=== PATIENT | female | born 1950 | race Caucasian/White ===

== ENCOUNTER 2020-06-09 12:09 | Outpatient (REF) | payer OTHER, SELFPAY ==
[2020-06-09 13:03] LABS: Urine Cytology See Pathology rpt
== END 2020-06-09 12:10 | disposition home or self-care (01) ==
LOC: HO.LAB 12:09
PROVIDERS: PCP Internal Medicine; Visit Provider Internal Medicine
DX: R31.9 Hematuria, unspecified (principal)
CPT/HCPCS: 88112

== ENCOUNTER 2020-08-20 09:48 | Outpatient (REF) | payer OTHER, SELFPAY ==
[2020-08-20 11:29] LABS: MANUAL DIFF FLAG NO
[2020-08-20 11:43] LABS: Basophils Absolute Auto 0.1 X10*3/uL (0.0-0.2); Basophils Percent Auto 1.3 % (0-2); Eosinophils Absolute Auto 0.2 X10*3/uL (0.0-0.4); Eosinophils Percent Auto 4.1 % (0-4); Hematocrit 38.8 % (37-47); Hemoglobin 12.9 g/dl (12.0-16.0); Imm Gran Abs Auto 0.01 X10*3/uL (0.00-0.03); Imm Gran Pct Auto 0.2 % (0.0-0.4); Lymphocytes Absolute Auto 2.4 X10*3/uL (1.2-4.9); Lymphocytes Percent Auto 44.8 % (20-40); Mean Corpuscular HGB Conc 33.2 g/dl (31.0-35.0); Mean Corpuscular Volume 90.2 fL (80-98); Mean Platelet Volume 10.3 fL (9.4-12.3); Monocytes Absolute Auto 0.6 X10*3/uL (0.1-1.2); Monocytes Percent Auto 11.4 % (2-11); Neutrophils Absolute Auto 2.1 X10*3/uL (2.0-8.3); Neutrophils Percent Auto 38.2 % (45-73); Platelet Count 266 X10*3/uL (160-400); Red Cell Distribution Width 12.5 % (11.0-16.0); White Blood Count 5.4 X10*3/uL (4.8-10.8)
[2020-08-20 12:15] LABS: Alanine Aminotransferase 39 U/L (0-31); Albumin Level 4.5 g/dL (3.5-5.0); Alkaline Phosphatase 77 U/L (39-117); Anion Gap 13 (12-20); Aspartate Amino Transferase 37 U/L (5-31); Bilirubin Total 1.2 mg/dL (0.0-1.0); Blood Urea Nitrogen 18 mg/dL (9-16); Calcium 9.8 mg/dL (8.4-10.2); Carbon Dioxide 27 mmol/L (22-29); Chloride 105 mmol/L (96-108); Cholesterol 189 mg/dL; Estimated Glomerular Filt Rate > 60; Glucose Random 97 mg/dL (60-115); HDL Cholesterol 76 mg/dL; LDL Cholesterol Calculated 94 mg/dl; Potassium 4.2 mmol/L (3.3-5.1); Sodium 141 mmol/L (135-145); Triglycerides 95 mg/dL
[2020-08-20 12:19] LABS: Free T4 (Free Thyroxine) 1.37 ng/dL (0.71-1.85); Thyroid Stimulating Hormone 0.98 uIU/mL (0.32-4.0); Vitamin D 25-OH Total 18.3 ng/mL (>30)
[2020-08-20 12:28] LABS: Folate 15.6 ng/mL (> or = 4.0); Vitamin B12 360 pg/mL (200-900)
== END 2020-08-20 09:49 | disposition home or self-care (01) ==
LOC: HO.HMGCLDS 09:48
PROVIDERS: PCP Internal Medicine; Visit Provider Internal Medicine
DX: E78.00 Pure hypercholesterolemia, unspecified (principal); I10 Essential (primary) hypertension; E03.9 Hypothyroidism, unspecified
CPT/HCPCS: 36415; 80053; 80061; 82306; 82607; 82746; 84439; 84443; 85025

== ENCOUNTER 2020-08-24 13:37 | Outpatient (REF) | payer OTHER, SELFPAY ==
--- NOTE | ~2020-08-24 | XR_ITS ---
EXAMINATION: XR LUMBOSACRAL SPINE CLINICAL INFORMATION: Radiculopathy COMPARISON: Previous x-ray most recent June 2012 TECHNIQUE: Three views of the lumbosacral spine. FINDINGS: Bone alignment is normal. No fracture or dislocation is seen. There is degenerative disc disease from L1-L2 to L4-L5. There is lower lumbar spine facet arthritis. XR/XR lumbar spine 2-3V IMPRESSION: Degenerative changes.
== END 2020-08-24 13:38 | disposition home or self-care (01) ==
LOC: HO.XRAY 13:37
PROVIDERS: PCP Internal Medicine; Visit Provider Internal Medicine
DX: M54.10 Radiculopathy, site unspecified (principal)
CPT/HCPCS: 72100

== ENCOUNTER 2020-12-11 09:53 | Outpatient (REF) | payer OTHER, SELFPAY ==
[2020-12-11 16:26] LABS: Urine Cytology See Pathology rpt
== END 2020-12-11 09:54 | disposition home or self-care (01) ==
LOC: HO.LAB 09:53
PROVIDERS: PCP Internal Medicine
DX: R31.9 Hematuria, unspecified (principal)
CPT/HCPCS: 88112

== ENCOUNTER 2021-03-18 09:55 | Outpatient (REF) | payer OTHER, SELFPAY ==
--- NOTE | ~2021-03-18 | US_ITS ---
EXAMINATION: US RETROPERITONEAL LIMITED (RENAL ONLY) CLINICAL INFORMATION: Hematuria, unspecified. COMPARISON: Ultrasound abdomen complete 07/28/2016. KUB 03/21/2016. TECHNIQUE: Real-time imaging of the kidneys. FINDINGS: RIGHT KIDNEY: 11.7 x 3.7 x 5.7 cm (SAG x AP x TRV). The kidney is normal in size, contour, and echogenicity. Renal cortical thickness is normal. No calculi or focal parenchymal lesions. No hydronephrosis. LEFT KIDNEY: 11.4 x 3.9 x 4.9 cm (SAG x AP x TRV). The kidney is normal in size, contour, and echogenicity. Renal cortical thickness is normal. There is question of left hydronephrosis versus peripelvic cysts. This is similar to July 2016 exam. No renal stone or mass. US/US renal BI IMPRESSION: No stone seen. Question left hydronephrosis versus peripelvic cysts.
== END 2021-03-18 09:56 | disposition home or self-care (01) ==
LOC: HO.HMGCX 09:55
PROVIDERS: PCP Internal Medicine; Visit Provider Internal Medicine
DX: R31.9 Hematuria, unspecified (principal)
CPT/HCPCS: 76775

== ENCOUNTER → 2021-06-16 13:04 | Outpatient (BNVA) | payer OTHER, SELFPAY | PROVIDERS: PCP Internal Medicine; Visit Provider Urology | DX: N13.30 Unspecified hydronephrosis (principal); N20.0 Calculus of kidney; Z87.891 Personal history of nicotine dependence | CPT/HCPCS: 99212 ==

== ENCOUNTER 2021-09-02 10:53 | Outpatient (REF) | payer OTHER, SELFPAY ==
[2021-09-02 13:38] LABS: MANUAL DIFF FLAG NO
[2021-09-02 13:46] LABS: Basophils Absolute Auto 0.1 X10*3/uL (0.0-0.2); Basophils Percent Auto 1.3 % (0-2); Eosinophils Absolute Auto 0.2 X10*3/uL (0.0-0.4); Eosinophils Percent Auto 3.6 % (0-4); Hematocrit 35.9 % (37.0-47.0); Hemoglobin 11.8 g/dl (12.0-16.0); Imm Gran Abs Auto 0.01 X10*3/uL (0.00-0.03); Imm Gran Pct Auto 0.2 % (0.0-0.4); Lymphocytes Absolute Auto 2.2 X10*3/uL (1.2-4.9); Mean Corpuscular HGB Conc 32.9 g/dl (31.0-35.0); Mean Corpuscular Hemoglobin 29.4 pg (27.0-33.0); Mean Corpuscular Volume 89.5 fL (80.0-98.0); Mean Platelet Volume 10.7 fL (9.4-12.3); Monocytes Absolute Auto 0.6 X10*3/uL (0.1-1.2); Monocytes Percent Auto 10.4 % (2-11); Neutrophils Absolute Auto 2.6 x10*3/uL (2.0-8.3); Neutrophils Percent Auto 45.5 % (45-73); Platelet Count 247 X10*3/uL (160-400); Red Blood Count 4.01 X10*6/uL (4.20-5.50); Red Cell Distribution Width 12.5 % (11.0-16.0); White Blood Count 5.6 X10*3/uL (4.8-10.8)
[2021-09-02 14:00] LABS: Alanine Aminotransferase 23 U/L (0-31); Albumin Level 4.3 g/dL (3.5-5.0); Alkaline Phosphatase 70 U/L (39-117); Anion Gap 11 (12-20); Aspartate Amino Transferase 21 U/L (5-31); Bilirubin Total 0.8 mg/dL (0.0-1.0); Blood Urea Nitrogen 25 mg/dL (9-16); Calcium 9.8 mg/dL (8.4-10.2); Carbon Dioxide 27 mmol/L (22-29); Chloride 105 mmol/L (96-108); Cholesterol 166 mg/dL; Estimated Glomerular Filt Rate 58; Glucose Random 98 mg/dL (60-115); HDL Cholesterol 55 mg/dL; LDL Cholesterol Calculated 88 mg/dl; Potassium 3.6 mmol/L (3.3-5.1); Sodium 139 mmol/L (135-145); Total Protein 6.5 g/dL (6.5-8.0); Triglycerides 115 mg/dL
[2021-09-02 14:13] LABS: Free T4 (Free Thyroxine) 1.36 ng/dL (0.71-1.85); Thyroid Stimulating Hormone 0.53 uIU/mL (0.32-4.0); Vitamin D 25-OH Total 30.1 ng/mL (>30)
[2021-09-02 14:28] LABS: Folate 12.5 ng/mL (> or = 4.0); Vitamin B12 327 pg/mL (200-900)
== END 2021-09-02 10:54 | disposition home or self-care (01) ==
LOC: HO.HMGCLDS 10:53
PROVIDERS: PCP Internal Medicine; Visit Provider Internal Medicine
DX: E78.00 Pure hypercholesterolemia, unspecified (principal)
CPT/HCPCS: 36415; 80053; 80061; 82306; 82607; 82746; 84439; 84443; 85025

== ENCOUNTER 2021-11-09 10:34 | Outpatient (REF) | payer OTHER, SELFPAY ==
--- NOTE | ~2021-11-09 | US_ITS ---
EXAMINATION: US RETROPERITONEAL LIMITED (RENAL ONLY) CLINICAL INFORMATION: Calculus of kidney. COMPARISON: Bilateral renal ultrasound dated 03/18/2021. Ultrasound abdomen complete dated 07/28/2016. KUB dated 03/21/2016. TECHNIQUE: Real-time imaging of the kidneys. FINDINGS: RIGHT KIDNEY: 10.8 x 3.8 x 5.6 cm (SAG x AP x TRV). The kidney is normal in size and echogenicity. Renal cortical thickness is normal. No calculi or focal parenchymal lesions. No hydronephrosis. LEFT KIDNEY: 11.2 x 4.7 x 4.3 cm (SAG x AP x TRV). The kidney is normal in size, contour, and echogenicity. Renal cortical thickness is normal. There is mild caliectasis versus peripelvic cysts similar to previous exams. No renal calculi or hydronephrosis. US/US renal BI IMPRESSION: No stone seen. Mild left caliectasis versus peripelvic cysts similar to previous exams.
[2021-11-09 11:26] LABS: MANUAL DIFF FLAG NO
[2021-11-09 11:39] LABS: Basophils Absolute Auto 0.1 X10*3/uL (0.0-0.2); Basophils Percent Auto 1.3 % (0-2); Eosinophils Absolute Auto 0.3 X10*3/uL (0.0-0.4); Eosinophils Percent Auto 4.7 % (0-4); Hematocrit 36.5 % (37.0-47.0); Hemoglobin 12.2 g/dl (12.0-16.0); Imm Gran Abs Auto 0.01 X10*3/uL (0.00-0.03); Imm Gran Pct Auto 0.2 % (0.0-0.4); Immature Retic Fraction 13.7 % (3.0-15.9); Lymphocytes Absolute Auto 2.2 X10*3/uL (1.2-4.9); Lymphocytes Percent Auto 38.8 % (20-40); Mean Corpuscular HGB Conc 33.4 g/dl (31.0-35.0); Mean Corpuscular Volume 89.7 fL (80.0-98.0); Mean Platelet Volume 9.7 fL (9.4-12.3); Monocytes Absolute Auto 0.6 X10*3/uL (0.1-1.2); Monocytes Percent Auto 10.6 % (2-11); Neutrophils Absolute Auto 2.5 x10*3/uL (2.0-8.3); Neutrophils Percent Auto 44.4 % (45-73); Platelet Count 250 X10*3/uL (160-400); Red Blood Count 4.07 X10*6/uL (4.20-5.50); Red Cell Distribution Width 12.5 % (11.0-16.0); Retic HGB Equivalent 36.1 pg (30.0-35.0); Reticulocyte Percent 1.9 % (0.5-1.8); Reticulocytes Absolute 0.078 X10*6/uL (0.026-0.095); White Blood Count 5.6 X10*3/uL (4.8-10.8)
[2021-11-09 12:10] LABS: Iron 75 mcg/dL (30-160); Percent Iron Saturation 24 % (15-50); Total Iron Binding Capacity 313 mcg/dL (228-428); Unsaturated Iron Binding 238 ug/dL
[2021-11-09 12:34] LABS: Ferritin 77 ng/mL (10-250)
== END 2021-11-09 10:35 | disposition home or self-care (01) ==
LOC: HO.US 10:34
PROVIDERS: Internal Medicine; Visit Provider Urology
DX: N20.0 Calculus of kidney (principal); N13.30 Unspecified hydronephrosis; D64.9 Anemia, unspecified
CPT/HCPCS: 36415; 76775; 82728; 83540; 85025; 85045

== ENCOUNTER 2022-01-11 13:51 | Outpatient (REF) | payer OTHER, SELFPAY ==
[2022-01-11 14:12] LABS: MANUAL DIFF FLAG NO
[2022-01-11 14:33] LABS: Basophils Percent Auto 0.6 % (0-2); Eosinophils Absolute Auto 0.2 X10*3/uL (0.0-0.4); Eosinophils Percent Auto 2.9 % (0-4); Hematocrit 36.5 % (37.0-47.0); Hemoglobin 12.3 g/dl (12.0-16.0); Imm Gran Abs Auto 0.01 X10*3/uL (0.00-0.03); Imm Gran Pct Auto 0.2 % (0.0-0.4); Lymphocytes Absolute Auto 2.5 X10*3/uL (1.2-4.9); Lymphocytes Percent Auto 38.9 % (20-40); Mean Corpuscular HGB Conc 33.7 g/dl (31.0-35.0); Mean Corpuscular Hemoglobin 29.9 pg (27.0-33.0); Mean Corpuscular Volume 88.6 fL (80.0-98.0); Monocytes Absolute Auto 0.7 X10*3/uL (0.1-1.2); Monocytes Percent Auto 10.8 % (2-11); Neutrophils Percent Auto 46.6 % (45-73); Platelet Count 269 X10*3/uL (160-400); Red Blood Count 4.12 X10*6/uL (4.20-5.50); Red Cell Distribution Width 12.6 % (11.0-16.0); White Blood Count 6.5 X10*3/uL (4.8-10.8)
[2022-01-11 15:24] LABS: Erythrocyte Sedimentation Rate 13 MM/HR (0-20)
[2022-01-13 14:56] LABS: Immunoglobulin A 80 mg/dL (70-320)
[2022-01-13 23:26] LABS: Transglutaminase Ab IgG <1.0 U/mL; Transglutaminase IgA <1.0 U/mL
[2022-01-17 14:22] LABS: Gliadin Deamidated IgA Ab <1.0 U/mL; Gliadin Deamidated IgG Ab <1.0 U/mL
[2022-01-19 15:56] LABS: Endomysial IgA Antibody Negative (Negative)
== END 2022-01-11 13:52 | disposition home or self-care (01) ==
LOC: HO.LAB 13:51
PROVIDERS: PCP Internal Medicine; Visit Provider Internal Medicine
DX: K58.0 Irritable bowel syndrome with diarrhea (principal); K62.5 Hemorrhage of anus and rectum
CPT/HCPCS: 36415; 82784; 85025; 85652; 86140; 86231; 86258; 86364

== ENCOUNTER 2022-01-13 15:02 | Outpatient (REF) | payer OTHER, SELFPAY ==
[2022-01-13 18:06] LABS: Leukocytes Stool Qualitative NEGATIVE (NEGATIVE)
[2022-01-13 18:09] LABS: CDiff Gene PCR NEGATIVE (Negative)
[2022-01-14 09:38] LABS: Adenovirus F 40/41 Not Detected (Not Detect.); Astrovirus Not Detected (Not Detect.); Campylobacter Not Detected (Not Detect.); Cryptosporidium Not Detected (Not Detect.); Cyclospora cayetanensis Not Detected (Not Detect.); E. coli EAEC Not Detected (Not Detect.); E. coli EPEC Not Detected (Not Detect.); E. coli ETEC Not Detected (Not Detect.); E. coli STEC Not Detected (Not Detect.); Entamoeba histolytica Not Detected (Not Detect.); Giardia lamblia Not Detected (Not Detect.); Norovirus GI/GII Not Detected (Not Detect.); Plesiomonas shigelloides Not Detected (Not Detect.); Rotavirus A Not Detected (Not Detect.); Salmonella Not Detected (Not Detect.); Sapovirus Not Detected (Not Detect.); Shigella sp./EIEC Not Detected (Not Detect.); Vibrio Not Detected (Not Detect.); Vibrio Cholerae Not Detected (Not Detect.); Yersinia enterocolitica Not Detected (Not Detect.)
[2022-01-18 18:56] LABS: Calprotectin, Fecal 18 mcg/g
== END 2022-01-13 15:03 | disposition home or self-care (01) ==
LOC: HO.HMGCLDS 15:02
PROVIDERS: PCP Internal Medicine; Visit Provider Internal Medicine
DX: K58.0 Irritable bowel syndrome with diarrhea (principal); K62.5 Hemorrhage of anus and rectum
CPT/HCPCS: 83993; 87493; 87507; 89055

== ENCOUNTER 2022-03-02 08:02 | Day surgery (SDC) | payer OTHER, SELFPAY ==
--- NOTE | 2022-03-01 12:10 | HO.ANESPROP2 ---
Documented by User: Bhavya Badillo NP 03/01/22 12:10 HPI - Anesthesia Eval Consult details Narrative: 72yo F for Colonoscopy PMFSH Active Problems Active Problems: All Active Problems (Updated 12/30/21 @ 11:32 by Jossy Richter MD) Rectal bleeding (Acute) COVID-19 virus infection (Acute) Breast cancer screening by mammogram (Acute) Urinary hesitancy (Acute) Overactive bladder (Acute) Low back pain (Acute) Anemia (Acute) Impacted cerumen, bilateral (Acute) Osteopenia (Acute) Annual physical exam (Acute) Radicular low back pain (Acute) Vitamin D deficiency (Acute) Hematuria (Acute) Hearing impairment (Acute) Left lower quadrant abdominal pain (Acute) Allergic contact dermatitis (Acute) GERD (gastroesophageal reflux disease) (Acute) Overweight (BMI 25.0-29.9) (Acute) Hypertension (Acute) Hypothyroid (Acute) Hypercholesterolemia (Acute) Past Medical History Medical History (Updated 12/30/21 @ 11:32 by Jossy Richter MD) GERD (gastroesophageal reflux disease) Hypercholesterolemia Hypertension Hypothyroid Osteopenia Overweight (BMI 25.0-29.9) Family History Family History Father Smoker Lung cancer Mother Hypertension Diabetes Crohn disease Hypercholesterolemia Brother Hypertension Brother Diabetes Gastric cancer Paternal Grandfather Prostate cancer Surgical History Surgical History History of appendectomy History of bilateral cataract extraction History of lumpectomy of left breast History of thyroidectomy History of tonsillectomy History of total abdominal hysterectomy and bilateral salpingo-oophorectomy Social History Social History Housing: House Alcohol intake: current Alcohol intake frequency: holidays/special occasions only Alcohol type: wine Patient Tobacco Use Status: Former Tobacco user Tobacco use type: Cigarette Years Smoked: quit 23 years old e-Cigarette/Vaping Use: Never Used Second Hand Smoke Exposure: No Are you DNR?: No Advance Directives: No Advance Directives Information Provided: Yes service: No Current occupational status: retired Current occupational exposures/hazards: No Cognitive needs: No Hearing needs: Yes Vision needs: Yes Meds Allergies Allergy/AdvReac Type Severity Reaction Status Date / Time amoxicillin [AMOXICILLIN] Allergy Unknown UNKNOWN Verified 12/30/21 10:55 penicillin V Allergy Unknown Unknown Verified 12/30/21 10:55 Sulfa (Sulfonamide Allergy Unknown UNKNOWN Verified 12/30/21 10:55 Antibiotics) [SULFA (SULFONAMIDE ANTIBIOTICS)] lisinopril AdvReac Unknown cough Verified 12/30/21 10:55 Home Medications Medication Instructions Recorded Confirmed Last Taken Type alclometasone 0.05 % topical cream 1 applic topical BID 01/27/20 09/08/21 Unknown History erythromycin 5 mg/gram (0.5 %) eye 0 mg ophthalmic (eye) 06/16/21 09/08/21 Unknown History ointment meloxicam 15 mg tablet 15 mg PO DAILY PRN 09/08/21 09/08/21 Unknown History Exam Exam Date and Time: March 01, 2022 1210 Assessment and Plan Assessment Anesthesia Assessment: Chart Reviewed Documented by User: Taiwo Kitchen MD 03/02/22 16:05 [facility] Past Medical History Medical History (Updated 12/30/21 @ 11:32 by Jossy Richter MD) GERD (gastroesophageal reflux disease) Hypercholesterolemia Hypertension Hypothyroid Osteopenia Overweight (BMI 25.0-29.9) Functional capacity: independent ambulation Family History Family History Father Smoker Lung cancer Mother Hypertension Diabetes Crohn disease Hypercholesterolemia Brother Hypertension Brother Diabetes Gastric cancer Paternal Grandfather Prostate cancer Family history of problems with anesthesia: No Surgical History Surgical History History of appendectomy History of bilateral cataract extraction History of lumpectomy of left breast History of thyroidectomy History of tonsillectomy History of total abdominal hysterectomy and bilateral salpingo-oophorectomy History of Problems with Anesthesia: No Social History Social History Housing: House Alcohol intake: current Alcohol intake frequency: holidays/special occasions only Alcohol type: wine Patient Tobacco Use Status: Former Tobacco user Tobacco use type: Cigarette Years Smoked: quit 23 years old e-Cigarette/Vaping Use: Never Used Second Hand Smoke Exposure: No Are you DNR?: No Advance Directives: No Advance Directives Information Provided: Yes service: No Current occupational status: retired Current occupational exposures/hazards: No Cognitive needs: No Hearing needs: Yes Vision needs: Yes Meds Allergies Allergy/AdvReac Type Severity Reaction Status Date / Time amoxicillin [AMOXICILLIN] Allergy Unknown UNKNOWN Verified 12/30/21 10:55 penicillin V Allergy Unknown Unknown Verified 12/30/21 10:55 Sulfa (Sulfonamide Allergy Unknown UNKNOWN Verified 12/30/21 10:55 Antibiotics) [SULFA (SULFONAMIDE ANTIBIOTICS)] lisinopril AdvReac Unknown cough Verified 12/30/21 10:55 Home Medications Medication Instructions Recorded Confirmed Last Taken Type alclometasone 0.05 % topical cream 1 applic topical BID 01/27/20 09/08/21 Unknown History erythromycin 5 mg/gram (0.5 %) eye 0 mg ophthalmic (eye) 06/16/21 09/08/21 Unknown History ointment meloxicam 15 mg tablet 15 mg PO DAILY PRN 09/08/21 09/08/21 Unknown History Exam Airway Mallampati Class: III TM Dist: >3cm Neck ROM: Full Loose/Missing/Broken Teeth: Yes (Missing , fillings) Heart: S1,S2 Lungs: b/l breath sounds Assessment and Plan Assessment Anesthesia Assessment: Anesthesia Plan Discussed Final Anesthetic Review Family History of Problems with Anesthesia: No History of Problems with Anesthesia: No NPO: Yes ASA Class: II Final Preanesthetic Review: Meds/Allgs Chart Reviewed, Consent Obtained/Reviewed and Anes Risks/Benef Reviewed Patient Risk: Intermediate Procedure Risk: Intermediate Anesthetic Plan Anesthetic Plan: MAC: Disposition: Standard PACU
[2022-03-02 08:25] VITALS: BMI 27.4
[2022-03-02] MEDS: Lactated Ringers 1,000 ML 100 ML IVCONT (08:58)
[2022-03-02 10:26] VITALS: BP 103/74; PULSE 67; RESP 16; TEMP 36.1; O2SAT 98
--- NOTE | 2022-03-02 10:32 | PM.OP ---
Brief Operative Note Date of Service: 03/02/22 Pre-op diagnosis: Rectal bleeding, Diarrhea Post-op diagnosis: other (R/O microscopic colitis, Internal hemorrhoids) Procedure: Colonoscopy to the cecum and TI with biopsies Surgeon: Francis Calloway Anesthesia: MAC Was an [employer]er used for this Procedure?: No Estimated blood loss (mL): 2.0 Pathology: other (A. Ascending colon B. Descending colon) Condition: stable Disposition: PACU
[2022-03-02 10:41] VITALS: BP 136/67; PULSE 68; RESP 18; TEMP 36.1; O2SAT 96
--- NOTE | 2022-03-02 10:58 | OP_ITS ---
SURGEON: Francis Calloway MD INDICATIONS: The patient presents for evaluation of irregular bowel movements, occasional diarrhea, and hematochezia. Full consent was obtained from her for this, including risks of bleeding and perforation. PREOPERATIVE DIAGNOSIS: POSTOPERATIVE DIAGNOSIS: Diarrhea, hematochezia, irregular bowel movements, rule out microscopic colitis, diverticulosis, and internal hemorrhoids. PROCEDURE PERFORMED: Colonoscopy to cecum and terminal ileum with biopsies. ESTIMATED BLOOD LOSS: COMPLICATIONS: ANESTHESIA: Monitored anesthesia care. ASSISTANTS: SPECIMENS: PREOPERATIVE DIAGNOSES: Diarrhea, hematochezia, and irregular bowel movements. DESCRIPTION OF PROCEDURE: The patient was placed in the left lateral decubitus position. The digital rectal exam revealed some external hemorrhoidal tissue. The Olympus video pediatric colonoscope was entered into the rectum and advanced easily to the cecum. Once in the cecum, I did identify normal-appearing cecal pouch with appendiceal orifice and a normal-appearing ileocecal valve. The terminal ileum was cannulated and appeared normal. Scope was withdrawn back in the colon. The entire cecum and ileocecal valve appeared normal. The scope was slowly withdrawn assessing all mucosal surfaces carefully. Preparation was excellent. I did not visualize any sign of polyps, colitis, nor angiodysplasia. Random biopsies were obtained in the ascending and descending colon. There was a moderate amount of sigmoid diverticulosis. In the rectum, scope was retroflexed visualizing internal hemorrhoids, as well as what appeared to be a somewhat inflamed and friable hemorrhoid extending from the dentate line. I do not think this represented any adenomatous tissue and I did not biopsy the area given its location, as well as what I felt was probably some inflammatory hemorrhoidal tissue. The scope was straightened and withdrawn from the patient. She tolerated the procedure well and was returned to recovery area in stable condition. IMPRESSION: 1. Internal hemorrhoids with some inflammatory component. 2. Diverticulosis. 3. Rule out microscopic colitis. 4. External hemorrhoids. PLAN: The results of the biopsies will be checked. She reports that her diarrhea has not been particularly problematic lately. Given the findings in the distal rectum, I shall refer to see Dr. Villanueva to be sure he does not think the area needs to be excised. Given today's otherwise negative exam, I do not think she would need any further screening colonoscopies. She was advised not to use any aspirin and NSAIDs for at least 1 week. This has been discussed with her . MD JUDE Marino/NEY / [id number] SAUMYA
== END 2022-03-02 11:48 | disposition home or self-care (01) ==
PROVIDERS: PCP Internal Medicine; Visit Provider Internal Medicine
PROC: 0DJD8ZZ Inspection of Lower Intestinal Tract, Via Natural or Artificial Opening Endoscopic (ICD-10-PCS; CPT 45378; principal; 2022-03-02 09:30)
DX: K62.5 Hemorrhage of anus and rectum (principal); K58.0 Irritable bowel syndrome with diarrhea; K57.30 Diverticulosis of large intestine without perforation or abscess without bleeding; K64.8 Other hemorrhoids; K64.4 Residual hemorrhoidal skin tags; K21.9 Gastro-esophageal reflux disease without esophagitis; I10 Essential (primary) hypertension; E78.5 Hyperlipidemia, unspecified; Z79.899 Other long term (current) drug therapy; Z88.0 Allergy status to penicillin; Z88.2 Allergy status to sulfonamides; Z88.8 Allergy status to other drugs, medicaments and biological substances; Z85.850 Personal history of malignant neoplasm of thyroid; Z87.891 Personal history of nicotine dependence; Z86.16 Personal history of COVID-19
CPT/HCPCS: 45380; 88305

== ENCOUNTER → 2022-05-04 15:36 | Outpatient (BNVA) | payer OTHER, SELFPAY | PROVIDERS: PCP Internal Medicine; Referring Provider Internal Medicine; Visit Provider Surgery | DX: K64.8 Other hemorrhoids (principal) | CPT/HCPCS: 46600 ==

== ENCOUNTER 2022-05-25 12:54 | Outpatient (REF) | payer OTHER, SELFPAY ==
--- NOTE | ~2022-05-25 | US_ITS ---
EXAMINATION: US SOFT TISSUE NECK CLINICAL INFORMATION: R22.1 - Localized swelling, mass and lump, left neck. COMPARISON: None TECHNIQUE: Ultrasound of the neck soft tissue is targeted to the area of clinical concern, just caudal to the left ear near the angle of the mandible. Patient is able to point to area of concern at time of imaging. Grayscale imaging and color Doppler are performed. FINDINGS: The palpable area of concern corresponds to a circumscribed heterogeneous hypoechoic nodule within 0.6 cm on skin surface and measuring 1.4 x 0.9 x 1.3 cm. There is some scattered scant peripheral and internal color flow. There is no fatty lymph node hilus. There is mild increased through-transmission of sound. There is no skin thickening or edema tracking in the soft tissue planes. There are some localized incidental lymph nodes in the area interrogated all of which show normal karlos architecture. US/US soft tiss head and/or neck IMPRESSION: 1. Palpable area of concern corresponds to a circumscribed nonspecific heterogeneous hypoechoic nodule within 0.6 cm on skin surface measuring 1.4 x 0.9 x 1.3 cm. 2. If clinically indicated, lesion would be amenable to ultrasound-guided tissue sampling.
== END 2022-05-25 12:55 | disposition home or self-care (01) ==
LOC: HO.HMGCX 12:54
PROVIDERS: PCP Internal Medicine; Visit Provider Internal Medicine
DX: R22.1 Localized swelling, mass and lump, neck (principal)
CPT/HCPCS: 76536

== ENCOUNTER 2022-06-22 11:16 | Outpatient (REF) | payer OTHER, SELFPAY ==
[2022-06-22 16:53] LABS: Urine Cytology See Pathology rpt
== END 2022-06-22 11:17 | disposition home or self-care (01) ==
LOC: HO.LAB 11:16
PROVIDERS: PCP Internal Medicine; Visit Provider Urology
DX: R31.9 Hematuria, unspecified (principal)
CPT/HCPCS: 88112

== ENCOUNTER 2022-07-12 12:09 | Outpatient (REF) | payer OTHER, SELFPAY ==
--- NOTE | ~2022-07-12 | US_ITS ---
EXAMINATION: ULTRASOUND LEFT NECK LYMPH NODE CLINICAL INDICATION: Probable lump inferior but superficial to the parotid gland. Probable lymph node. COMPARISON: Ultrasound soft tissue neck 05/25/2022. TECHNIQUE: Following explaining ultrasound-guided fine needle and core biopsy of left neck lymph node procedure, benefits and risk, a written consent was obtained. Patient was placed supine with hydroureter to the right side. Preliminary imaging through the left upper neck was obtained. An optimal site was selected and marked on the skin. The marked site was cleaned and draped in usual sterile manner. 1% lidocaine was injected at puncture site. Under sterile ultrasound guidance a 5 pass fine-needle aspiration was performed. Subsequently 3 small skin incisions with a 22-gauge short biopsy gun was administered and a solitary core biopsy was obtained. Post procedure complete hemostasis was achieved at puncture site. Simple Band-Aid applied at the puncture site. Patient tolerated procedure extremely well. US/US biopsy subcutaneous skin FINDINGS/IMPRESSION: On preliminary ultrasound imaging there is a hypoechoic lymph node with increased vascularity on color exam inferior but superficial to left parotid gland. The pathologist was present during exam and reported as lymphocytes. Ultrasound-guided fine-needle and core biopsy of this lymph node was performed. Awaiting pathology results.
[2022-07-12] MEDS: Lidocaine HCl 1 % MPF 5 ML VIAL SUBCUT (14:31)
== END 2022-07-12 12:10 | disposition home or self-care (01) ==
LOC: HO.US 12:09
PROVIDERS: Radiology Diagnostic Radiology; PCP Internal Medicine; Visit Provider Internal Medicine
DX: R22.1 Localized swelling, mass and lump, neck (principal)
CPT/HCPCS: 11104; 36415; 88172; 88173; 88177; 88184; 88185; 88305; 88341; 88342

== ENCOUNTER 2022-10-10 13:28 | Outpatient (AMB) | payer OTHER, SELFPAY ==
--- NOTE | 2022-10-10 14:20 | MHC.OFFWIV ---
Intake Vital Signs 10/10/22 14:23 BP 120/56 L Blood Pressure Location Lt brachial Position Sitting Pulse 82 Pulse Source Pulse Oximeter Temp 98.3 F Temp Source Oral Pulse Oximetry (%) 93 Oxygen Delivery Method Room Air Intake Visit Reasons: EP, Cough, SOB ([employer],ask us to get her) Patient Tobacco Use Status: Former Tobacco user Allergies amoxicillin [AMOXICILLIN] Allergy (Unknown, Verified 05/04/22 15:54) UNKNOWN penicillin V Allergy (Unknown, Verified 05/04/22 15:54) Unknown Sulfa (Sulfonamide Antibiotics) [SULFA (SULFONAMIDE ANTIBIOTICS)] Allergy (Unknown, Verified 05/04/22 15:54) UNKNOWN lisinopril Adverse Reaction (Unknown, Verified 05/04/22 15:54) cough HPI EP, Cough, SOB ([employer],ask us to get her) HPI Details Pt presents with 5 days of worsening SOB and mild non-productive cough. No other symptoms of illness, congestion. Mild dysphagia. Fatigue and SOB with light activity. Denies chest pain but does note episodes of feeling faint and needing to sit down. She reports significant recent stress caring for her mother with alzheimers whi has since passed. [facility] Medical History (Updated 07/20/22 @ 20:12 by Jossy Richter MD) GERD (gastroesophageal reflux disease) Hemorrhoids with complication Hypercholesterolemia Hypertension Hypothyroid Osteopenia Overweight (BMI 25.0-29.9) Rectal bleeding Surgical History History of appendectomy History of bilateral cataract extraction History of lumpectomy of left breast History of thyroidectomy History of tonsillectomy History of total abdominal hysterectomy and bilateral salpingo-oophorectomy Family History Father Smoker Lung cancer Mother Hypertension Diabetes Crohn disease Hypercholesterolemia Brother Hypertension Brother Diabetes Gastric cancer Paternal Grandfather Prostate cancer Social History Housing: House Alcohol intake: current Alcohol intake frequency: holidays/special occasions only Alcohol type: wine Patient Tobacco Use Status: Former Tobacco user Tobacco use type: Cigarette Years Smoked: quit 23 years old e-Cigarette/Vaping Use: Never Used Second Hand Smoke Exposure: No service: No Current occupational status: retired Current occupational exposures/hazards: No Cognitive needs: No Hearing needs: Yes Vision needs: Yes Review of Systems Const Reports as per HPI and Reports no additional complaints Card Reports as per HPI and Reports no additional complaints Resp Reports as per HPI and Reports no additional complaints GI Reports as per HPI and Reports no additional complaints Neuro Reports no additional complaints and Reports as per HPI Physical Exam Vital Signs: Last Vital Signs Temp 98.3 F 10/10/22 14:23 Pulse 82 10/10/22 14:23 BP 120/56 L 10/10/22 14:23 Pulse Ox 93 10/10/22 14:23 Oxygen Delivery Method Room Air 10/10/22 14:23 Const General: cooperative, comfortable and no acute distress Orientation/consciousness: patient oriented x3 Resp Effort & Inspection: normal respiratory effort and not able to speak in complete sentences (loses breath at end of sentence) Auscultation: clear to auscultation bilaterally and no wheezes Cardio Rate: regular rate Rhythm: regular rhythm Heart sounds: Murmur heart sound present systolic holo, soft and at the left sternal border Peripheral pulses: Peripheral pulses 2+ throughout Neuro General: patient oriented x3 Assessment & Plan Assessment & Plan (1) Shortness of breath: Code(s): R06.02 - Shortness of breath (2) Abnormal EKG: Code(s): R94.31 - Abnormal electrocardiogram [ECG] [EKG] Plan Given patient symptoms, no previus EKG in [facility] [place] [facility] system to compare should be seen in ED to r/o new ACS. Pt refuses ambulance, warned of risks of this. Pt will be driven by , She elects to go to [facility]. Attempt to call in expect, no answer there after severeal attempts, will fax note and EKG to ED for expect. Orders: Orders SARS-CoV2/FLU/RSV Today B34.9 - Viral infection, unspecified XR chest 2V Today R06.02 - Shortness of breath Coding Level of Care Code Est Pt Level 4 (18145) Diagnoses Shortness of breath R06.02 Abnormal EKG R94.31
[2022-10-10 14:23] VITALS: BP 120/56; PULSE 82; TEMP 36.8; O2SAT 93
== END 2022-10-10 15:43 | disposition home or self-care (01) ==
PROVIDERS: PCP Internal Medicine; Visit Provider Physician Assistant
DX: R06.02 Shortness of breath (principal); R94.31 Abnormal electrocardiogram [ECG] [EKG]
CPT/HCPCS: 99214

== ENCOUNTER 2022-10-10 14:56 | Outpatient (REF) | payer OTHER, SELFPAY ==
[2022-10-10 18:20] LABS: Influenza A PCR NEGATIVE (Negative); Influenza B PCR NEGATIVE (Negative); Resp Syncy Virus RNA Qual PCR NEGATIVE (Negative); SARS COV2 PCR INHOUSE NEGATIVE (Negative)
== END 2022-10-10 14:57 | disposition home or self-care (01) ==
LOC: HO.HMGCX 14:56
PROVIDERS: PCP Internal Medicine; Visit Provider Physician Assistant
DX: R06.02 Shortness of breath (principal); B34.9 Viral infection, unspecified; Z20.822 Contact with and (suspected) exposure to COVID-19
CPT/HCPCS: 0241U; 71046

== ENCOUNTER 2022-10-26 12:55 | Outpatient (AMB) | payer OTHER, SELFPAY ==
--- NOTE | 2022-10-26 13:09 | A.OFFVIS_ITS ---
Intake Intake Visit Reasons: 4m follow up Intake Note: Patient is present for Follow Up Urology Med: Terazosin Antibiotic Allergy: Amoxicillin, Penicillin, Sulfa Blood Thinner: None Allergies amoxicillin [AMOXICILLIN] Allergy (Unknown, Verified 10/26/22 13:10) UNKNOWN penicillin V Allergy (Unknown, Verified 10/26/22 13:10) Unknown Sulfa (Sulfonamide Antibiotics) [SULFA (SULFONAMIDE ANTIBIOTICS)] Allergy (Unknown, Verified 10/26/22 13:10) UNKNOWN lisinopril Adverse Reaction (Unknown, Verified 10/26/22 13:10) cough HPI HPI Comments History of Present Illness Details ?Ms Erickson is a very pleasant female. She is a patient of Dr. Richter. She is seen for the following urologic conditions. - microscopic hematuria - overactive bladder - with hesitancy Bladder under control Minimal blood in urine Occasional using terazosin Had episode of bronchitis Blood pressure at home readings have been lower with high heart rate Had also recently lost 7 lb Recommendation to hold hydrochlorothiazide BP medication and check blood pressure in mornings over the next week Should also check in with PCP about overall adjustment One year follow-up Overactive bladder Urgency, frequency Using terazosin 1 mg Microscopic Hematuria:? Microscopic hematuria was diagnosed during?routine UA - atypical cytology .? They are here for the?12 month evaluation.? Since the last visit the patient has?does not test positive for microscopic hematuria.? Relevant medical history for?tobacco use - age 18-25 ?family history of renal cancer.? Radiographic imaging:?CT IVP 06/17 [facility] - .? Radiology report?no genitourinary abnormality.? - 11/22 renal ultrasound left question caliectasis versus parapelvic cyst ? Other investigations?cytology, atypical.? Cystoscopy findings?07/18 smaller bladder.? PFSH Medical History GERD (gastroesophageal reflux disease) Hemorrhoids with complication Hypercholesterolemia Hypertension Hypothyroid Osteopenia Overweight (BMI 25.0-29.9) Rectal bleeding Surgical History History of appendectomy History of bilateral cataract extraction History of lumpectomy of left breast History of thyroidectomy History of tonsillectomy History of total abdominal hysterectomy and bilateral salpingo-oophorectomy Family History Father Smoker Lung cancer Mother Hypertension Diabetes Crohn disease Hypercholesterolemia Brother Hypertension Brother Diabetes Gastric cancer Paternal Grandfather Prostate cancer Social History Housing: House Alcohol intake: current Alcohol intake frequency: holidays/special occasions only Alcohol type: wine Patient Tobacco Use Status: Former Tobacco user Tobacco use type: Cigarette Years Smoked: quit 23 years old e-Cigarette/Vaping Use: Never Used Second Hand Smoke Exposure: No service: No Current occupational status: retired Current occupational exposures/hazards: No Cognitive needs: No Hearing needs: Yes Vision needs: Yes Review of Systems Const Denies chills and Denies fever(s) Card Reports no additional complaints and Denies syncope Resp Denies cough GI Denies abdominal pain and Denies heartburn Reports as per HPI and Denies change in libido Neuro Denies syncope Psych Denies change in libido Endo Denies change in libido Physical Exam Const General: cooperative, healthy appearing, comfortable and no acute distress Orientation/consciousness: patient oriented x3 HEENT Face and sinus: Yes normal facial exam Mouth: moist mucous membranes Neck Neck: Yes normal visual inspection, Yes full ROM and Yes trachea midline Chest Chest palpation & inspection: normal inspection of the chest Resp Effort & Inspection: normal respiratory effort, able to speak in complete sente nces and no respiratory distress GI Inspection: Yes normal to inspection Back/Spine/Pelvis Cervical Spine: normal cervical lordosis Thoracic/Lumbar Spine: thoracic and lumbar spine normal to inspection Skin General skin exam: no rashes or lesions noted Neuro General: patient oriented x3, gait normal, tone normal and moves all extremities Extrem General: Yes normal to inspection and Yes capillary refill normal Results AMB Urinalysis, Automated UA Leukoctes 0 Cayetano/uL Last Edit by EVY Gonzalez on 10/26/22 13:24 UA Nitrite Negative Last Edit by EVY Gonzalez on 10/26/22 13:24 UA Urobilinogen 0.2 mg/dL Last Edit by Kelsi Smith, RMA on 10/26/22 13:2 4 UA Protein 0 mg/dL Last Edit by Kelsi Smith, RMA on 10/26/22 13:24 UA pH 6.0 Last Edit by Kelsi Smith, RMA on 10/26/22 13:24 UA Blood 25 James/uL Last Edit by Kelsi Smith, RMA on 10/26/22 13:24 UA Specific Hilger 1.010 Last Edit by Kelsi Smith, RMA on 10/26/22 13: 24 UA Ketone Negative Last Edit by Kelsi Smith, RMA on 10/26/22 13:24 UA Bilirubin 0 mg/dL Last Edit by Kelsi Smith, A on 10/26/22 13:24 UA Glucose 0 mg/dL Last Edit by Kelis Smith, A on 10/26/22 13:24 Results Reviewed Results Reviewed: Laboratory Last Values Urine pH (Auto) 6.0 10/26/22 13:11 Specific Hilger (Auto) 1.010 10/26/22 13:11 Urine Protein (Auto) 0 mg/dL 10/26/22 13:11 Glucose (UA)(Auto) 0 mg/dL 10/26/22 13:11 Urine Ketones (Auto) Negative 10/26/22 13:11 Urine Blood (Auto) 25 James/uL 10/26/22 13:11 Urine Nitrite (Auto) Negative 10/26/22 13:11 Urine Bilirubin (Auto) 0 mg/dL 10/26/22 13:11 Urine Urobilinogen (Auto) 0.2 mg/dL 10/26/22 13:11 Leukocyte Esterase (Auto) 0 Cayetano/uL 10/26/22 13:11 Assessment & Plan Assessment & Plan (1) Overactive bladder: Code(s): N32.81 - Overactive bladder (2) Urinary hesitancy: Code(s): R39.11 - Hesitancy of micturition Plan Twelve month follow-up Orders: Orders AMB Urinalysis Automated Today Z13.9 - Encounter for screening, unspecified AMB Post Void Residual by ultrasound Today N32.81 - Overactive bladder Patient Instructions: Imaging studies, laboratory and physical exam results were discussed and reviewed in detail. No major barriers to patient understanding were identified. An opportunity to ask questions regarding the treatment plan was provided. All questions were answered. The patient expressed understanding and agreement with the above treatment plan. The patient is aware they should contact our office by phone for worsening of their current condition or the appearance of new urologic symptoms. Compliance is encouraged with any medications and followup testing that is ordered. It is a privilege to participate in the urologic care of your patient. If you have any questions or concerns regarding treatment for the above conditions, or other urologic issues, please do not hesitate to contact me. The office telephone contact is [phone]. This note is constructed using voice recognition software. While every effort has been made to ensure accuracy resizer operator errors may have been included. Yours sincerely, Dr Nilesh Schaefer MD, [facility] - Urology Providers of Expert, Compassionate Care for the Genitourinary System Coding Level of Care Code Est Pt Level 4 (43349) Diagnoses Overactive bladder N32.81 Urinary hesitancy R39.11
== END 2022-10-26 13:50 | disposition home or self-care (01) ==
PROVIDERS: Visit Provider Urology
DX: N32.81 Overactive bladder (principal); R39.11 Hesitancy of micturition
CPT/HCPCS: 99213

== ENCOUNTER → 2022-10-26 12:55 | Outpatient (BNVA) | payer OTHER, SELFPAY | PROVIDERS: Visit Provider Urology ==

== ENCOUNTER 2022-10-31 09:18 | Outpatient (AMB) | payer OTHER, SELFPAY ==
[2022-10-31 09:20] VITALS: BP 118/58; PULSE 83; O2SAT 97; BMI 26.9
--- NOTE | 2022-10-31 09:20 | A.OFFPC_ITS ---
Vital Signs 10/31/22 09:20 Height 5 ft 4 in Weight 157 lb BMI 26.9 BP 118/58 L Blood Pressure Location Lt brachial Position Sitting Pulse 83 Pulse Source Pulse Oximeter Temp Source Skin Pulse Oximetry (%) 97 Oxygen Delivery Method Room Air Intake Visit Reasons: BP and possibly need for inhaler for bronchitis Intake Note: pt states coughing, SOB X4 weeks with no relief Fitter Armament Required: No Allergies amoxicillin [AMOXICILLIN] Allergy (Unknown, Verified 10/31/22 09:21) UNKNOWN penicillin V Allergy (Unknown, Verified 10/31/22 09:21) Unknown Sulfa (Sulfonamide Antibiotics) [SULFA (SULFONAMIDE ANTIBIOTICS)] Allergy (Unknown, Verified 10/31/22 09:21) UNKNOWN lisinopril Adverse Reaction (Unknown, Verified 10/31/22 09:21) cough Tobacco use date assessed: 10/31/22 Fall risk assessment: No Falls in past year Last assessed Fall Risk: 10/31/22 Dental Screening Dental Screen Date: 10/31/22 Did you have a dental visit in the last 12 months?: Yes Did you have a dental problem in the last 6 months where you did not have access to dental care?: No Was dental information given to patient?: Patient has dentist HPI BP and possibly need for inhaler for bronchitis HPI Details 72-year-old female with hypothyroidism, hypercholesterolemia hypertension, GERD last seen in April 2022 had some concerns about lump/mass on the left neck area ultrasound with biopsy revealing negative results done patient was also advised to get blood work done. Patient follows up with urology for the overactive bladder and hematuria patient has had cystoscopy July 2016 small bladder patient is on follow-up.. ER visit recently this month for chest pain shortness of breath diagnosis of bronchitis. noted weight loss, , 4 weeks ago cough and sob, urgent center- was told irregular- ER visit - was told normal. for the BP - at home 100/sbp,, Has gone back up. discussed with the patient that the patient has hydrochlorothiazide and she does need to drink enough fluids. So we have done a 72-year-old previous smoker with weight loss cough, short of breath for a month. Patient was advised to try taking allergy medication once a day, workup requested. Patient was asking about the thyroid medication since the patient has lost weight. Advised patient to get the blood work done again. Mammogram reminder. [facility] Medical History GERD (gastroesophageal reflux disease) Hemorrhoids with complication Hypercholesterolemia Hypertension Hypothyroid Osteopenia Overweight (BMI 25.0-29.9) Rectal bleeding Surgical History History of appendectomy History of bilateral cataract extraction History of lumpectomy of left breast History of thyroidectomy History of tonsillectomy History of total abdominal hysterectomy and bilateral salpingo-oophorectomy Family History Father Smoker Lung cancer Mother Hypertension Diabetes Crohn disease Hypercholesterolemia Brother Hypertension Brother Diabetes Gastric cancer Paternal Grandfather Prostate cancer Social History Housing: House Alcohol intake: current Alcohol intake frequency: holidays/special occasions only Alcohol type: wine Patient Tobacco Use Status: Former Tobacco user Tobacco use type: Cigarette Years Smoked: quit 23 years old e-Cigarette/Vaping Use: Never Used Second Hand Smoke Exposure: No service: No Current occupational status: retired Current occupational exposures/hazards: No Cognitive needs: No Hearing needs: Yes Vision needs: Yes Questionnaire PHQ-9 Over the last 2 weeks, how often have you been bothered by any of the following problems? 1. Little interest or pleasure in doing things: not at all 2. Feeling down, depressed, or hopeless: not at all 3. Trouble falling or staying asleep, or sleeping too much: not at all 4. Feeling tired or having little energy: not at all 5. Poor appetite or overeating: not at all 6. Feeling bad about yourself - or that you are a failure or have let yourself or your family down: not at all 7. Trouble concentrating on things, such as reading the newspaper or watching television: not at all 8. Moving or speaking so slowly that other people could have noticed. Or the opposite - being so fidgety or restless that you have been moving around a lot more than usual: not at all 9. Thoughts that you would be better off or of hurting yourself in some way: not at all Total score: 0 Depression Screening Interpretation: Negative Source: Developed by Drs. Francis Sánchez, Tab Daliy and colleagues, with an educational kentrell from [employer]. Thrive Questionnaire Date Thrive assessed: 05/03/22 AUDIT C Alcohol Use Questionnaire (AUDIT-C) 1. How often do you have a drink containing alcohol?: Monthly or less 2. How many drinks containing alcohol do you have on a typical day when you are drinking?: 1 or 2 3. How often do you have six or more drinks on one occasion?: Never Total Score: 1 RALF-7 AMB Questionnaire RALF-7 Date RALF - 7 assessed: 05/03/22 Source: Developed by Drs. Francis Sánchez, Wendy Ellison, Tab Rosa and colleagues, with an educational kentrell from [employer]. Physical exam (Primary Care) Vital Signs: Last Vital Signs Pulse 83 10/31/22 09:20 BP 118/58 L 10/31/22 09:20 Pulse Ox 97 10/31/22 09:20 Oxygen Delivery Method Room Air 10/31/22 09:20 BMI result Body Mass Index 26.9 Tobacco/Smoking Status: Tobacco use Status Tobacco use date assessed 10/31/22 10/31/22 09:21 Patient Tobacco Use Status Former Tobacco user 10/31/22 09:21 Tobacco use type Cigarette 10/31/22 09:21 e-Cigarette/Vaping Use Never Used 10/31/22 09:21 PHQ-9: PHQ-9 Score PHQ-9: Total score 0 10/31/22 09:39 Depression Screening Interpretation: Negative Thrive Assessment: Date of Thrive Assessment Date Thrive assessed 05/03/22 10/31/22 09:21 Const General: alert; No acute distress Eyes Conjunctivae: conjunctivae normal Resp Auscultation: clear to auscultation bilaterally Cardio Rate: regular rate Rhythm: regular rhythm GI Inspection: Yes normal to inspection Extrem General: Yes normal to inspection and No edema Assessment and Plan Assessment & Plan (1) Palpable mass of neck: Comment: Biopsy July 2022 negative Code(s): R22.1 - Localized swelling, mass and lump, neck Plan: Biopsy done negative (2) Breast cancer screening by mammogram: Code(s): Z12.31 - Encounter for screening mammogram for malignant neoplasm of breast Plan: Reminded about mammogram (3) Overactive bladder: Code(s): N32.81 - Overactive bladder Plan: Patient follows up with urology on terazosin (4) GERD (gastroesophageal reflux disease): Code(s): K21.9 - Gastro-esophageal reflux disease without esophagitis Qualifiers: Esophagitis presence: without esophagitis Qualified Code(s): K21.9 - Gastro-esophageal reflux disease without esophagitis Plan: Avoid the foods that causes that usually spicy foods, tomato products, juices, coffee, soda and foods that your sensitive to. After eating do not lie down, allow 3-4 hours before in lie down. And keep the head of bed above 30 degrees to avoid the acid from going up. (5) Hypertension: Code(s): I10 - Essential (primary) hypertension Qualifiers: Hypertension type: essential hypertension Qualified Code(s): I10 - Essential (primary) hypertension Plan: Continue with blood pressure medication. Decrease salt intake and exercise takes losartan 100 mg once a day and hydrochlorothiazide 12.5 mg once a day (6) Hypothyroid: Comment: Dr. Smith Code(s): E03.9 - Hypothyroidism, unspecified Qualifiers: Hypothyroidism type: acquired Qualified Code(s): E03.9 - Hypothyroidism, unspecified Plan: Continue with thyroid medication reminded about the blood work (7) Hypercholesterolemia: Code(s): E78.00 - Pure hypercholesterolemia, unspecified Plan: Avoid fried foods, chicken skin, eggs, butter margarine, pastries and meat. Be it pork or beef they have a lot of cholesterol on simvastatin LDL goal of less than 130 and triglyceride of less than 150 (8) Cough: Code(s): R05.9 - Cough, unspecified (9) Weight loss: Code(s): R63.4 - Abnormal weight loss Orders: Orders Blood Urea Nitrogen Today R05.9 - Cough, unspecified Creatinine Today R05.9 - Cough, unspecified CT chest w IV con Today R05.9 - Cough, unspecified, R63.4 - Abnormal weight loss Coding Level of Care Code Est Pt Level 4 (90618) Diagnoses Palpable mass of neck R22.1 Breast cancer screening by mammogram Z12.31 Overactive bladder N32.81 GERD (gastroesophageal reflux disease) K21.9 Esophagitis presence: without esophagitis Hypertension I10 Hypertension type: essential hypertension Hypothyroid E03.9 Hypothyroidism type: acquired Hypercholesterolemia E78.00 Cough R05.9 Weight loss R63.4
== END 2022-10-31 10:06 | disposition home or self-care (01) ==
PROVIDERS: PCP Internal Medicine; Visit Provider Internal Medicine
DX: R22.1 Localized swelling, mass and lump, neck (principal); K21.9 Gastro-esophageal reflux disease without esophagitis; I10 Essential (primary) hypertension; E03.9 Hypothyroidism, unspecified; Z12.31 Encounter for screening mammogram for malignant neoplasm of breast; N32.81 Overactive bladder; E78.00 Pure hypercholesterolemia, unspecified; R05.9 Cough, unspecified; R63.4 Abnormal weight loss
CPT/HCPCS: 99214

== ENCOUNTER 2022-11-08 10:09 | Outpatient (REF) | payer OTHER, SELFPAY ==
[2022-11-08 13:47] LABS: MANUAL DIFF FLAG NO
[2022-11-08 13:59] LABS: Basophils Absolute Auto 0.1 X10*3/uL (0.0-0.2); Basophils Percent Auto 1.2 % (0-2); Eosinophils Absolute Auto 0.4 X10*3/uL (0.0-0.4); Eosinophils Percent Auto 5.2 % (0-4); Hematocrit 32.1 % (37.0-47.0); Imm Gran Abs Auto 0.02 X10*3/uL (0.00-0.03); Imm Gran Pct Auto 0.3 % (0.0-0.4); Lymphocytes Absolute Auto 1.9 X10*3/uL (1.2-4.9); Mean Corpuscular HGB Conc 31.2 g/dl (31.0-35.0); Mean Corpuscular Hemoglobin 28.2 pg (27.0-33.0); Mean Corpuscular Volume 90.7 fL (80.0-98.0); Mean Platelet Volume 9.6 fL (9.4-12.3); Monocytes Absolute Auto 0.9 X10*3/uL (0.1-1.2); Monocytes Percent Auto 11.4 % (2-11); Neutrophils Absolute Auto 4.3 x10*3/uL (2.0-8.3); Neutrophils Percent Auto 56.9 % (45-73); Platelet Count 363 X10*3/uL (160-400); Red Blood Count 3.54 X10*6/uL (4.20-5.50); White Blood Count 7.5 X10*3/uL (4.8-10.8)
[2022-11-08 14:37] LABS: Alanine Aminotransferase 28 U/L (0-31); Albumin Level 3.8 g/dL (3.5-5.0); Alkaline Phosphatase 81 U/L (39-117); Anion Gap 12 (12-20); Aspartate Amino Transferase 25 U/L (5-31); Bilirubin Total 0.6 mg/dL (0.0-1.0); Blood Urea Nitrogen 16 mg/dL (9-16); Calcium 9.9 mg/dL (8.4-10.2); Carbon Dioxide 28 mmol/L (22-29); Chloride 105 mmol/L (96-108); Cholesterol 159 mg/dL; Estimated Glomerular Filt Rate 58; Glucose Random 92 mg/dL (60-115); HDL Cholesterol 45 mg/dL; LDL Cholesterol Calculated 95 mg/dl; Potassium 4.2 mmol/L (3.3-5.1); Sodium 141 mmol/L (135-145); Total Protein 6.9 g/dL (6.5-8.0); Triglycerides 99 mg/dL
[2022-11-08 14:44] LABS: Free T4 (Free Thyroxine) 1.25 ng/dL (0.71-1.85); Thyroid Stimulating Hormone 0.68 uIU/mL (0.32-4.0); Vitamin D 25-OH Total 40.3 ng/mL (>30)
[2022-11-08 14:48] LABS: Folate 14.7 ng/mL (> or = 4.0); Vitamin B12 939 pg/mL (200-900)
== END 2022-11-08 10:10 | disposition home or self-care (01) ==
LOC: HO.HMGCLDS 10:09
PROVIDERS: PCP Internal Medicine; Visit Provider Internal Medicine
DX: E03.9 Hypothyroidism, unspecified (principal); E78.00 Pure hypercholesterolemia, unspecified; E55.9 Vitamin D deficiency, unspecified; M85.80 Other specified disorders of bone density and structure, unspecified site
CPT/HCPCS: 36415; 80053; 80061; 82306; 82607; 82746; 84439; 84443; 85025

== ENCOUNTER 2022-11-15 14:01 | Outpatient (REF) | payer OTHER, SELFPAY ==
--- NOTE | ~2022-11-15 | CT_ITS ---
EXAMINATION: CT CHEST WITH CONTRAST CLINICAL INFORMATION: Cough COMPARISON: 10/10/2022 chest radiograph TECHNIQUE: Multidetector volumetric CT imaging of the chest was obtained after the administration of 50 mL of Omnipaque 350 intravenous contrast without immediate adverse reactions. Axial MIP volume rendering provided. Sagittal and coronal reformatted images were obtained. This CT examination was performed using dose optimization techniques as appropriate, variously including the following: *Automated exposure control *Adjustment of mA and/or kV according to patient size (this includes techniques or standardized protocols for targeted exams where dose is matched to indication/reason for exam; i.e. extremities or head) *Use of iterative reconstruction technique DLP: 144 mGy-cm FINDINGS: FLUX CORE WELDER: Negative LUNGS: Trachea and bronchi are patent. Evaluation of the lungs limited due to movement/respiratory motion. Likely bilateral lower lobe mosaic attenuation and left lower lobe bleb. No consolidations or lung nodules. MEDIASTINUM: Surgical clips thyroid bed, patient with history of papillary thyroid carcinoma No pathologic lymphadenopathy. Small hiatal hernia. PLEURA: There is no pleural effusion. No pleural mass or thickening. HEART AND GREAT VESSELS: Nonenlarged heart. No pericardial effusion. Degree of coronary calcifications: None. Mild atherosclerotic calcifications nonaneurysmal aorta. Nonenlarged pulmonary arteries. AXILLA: Nonspecific lymph nodes. No pathologic lymphadenopathy. UPPER ABDOMEN: Mild left hydroureteronephrosis. OSSEOUS AND SOFT TISSUE STRUCTURES: Nodular densities bilateral breasts, see cal[place] images. Benign-appearing calcification right breast. No suspicious osseous lesions. CT/CT chest w IV con IMPRESSION: Possible mosaic attenuation bilateral lower lobes suggesting underlying small airway disease. No CT evidence of pneumonia. No suspicious lung nodules. Bilateral breast nodular densities, correlate with mammography. Fleischner guidelines were followed.
[2022-11-15] MEDS: iohexoL 350 MG/ML 100 ML INFUS..BTL IV (14:38)
[2022-11-15 14:44] LABS: MANUAL DIFF FLAG NO
[2022-11-15 14:56] LABS: Basophils Absolute Auto 0.1 X10*3/uL (0.0-0.2); Basophils Percent Auto 1.2 % (0-2); Eosinophils Absolute Auto 0.3 X10*3/uL (0.0-0.4); Eosinophils Percent Auto 3.7 % (0-4); Hematocrit 30.2 % (37.0-47.0); Hemoglobin 9.6 g/dl (12.0-16.0); Imm Gran Abs Auto 0.02 X10*3/uL (0.00-0.03); Imm Gran Pct Auto 0.2 % (0.0-0.4); Immature Retic Fraction 12.8 % (3.0-15.9); Lymphocytes Absolute Auto 2.5 X10*3/uL (1.2-4.9); Mean Corpuscular HGB Conc 31.8 g/dl (31.0-35.0); Mean Corpuscular Hemoglobin 28.2 pg (27.0-33.0); Mean Corpuscular Volume 88.8 fL (80.0-98.0); Mean Platelet Volume 8.9 fL (9.4-12.3); Neutrophils Absolute Auto 4.2 x10*3/uL (2.0-8.3); Neutrophils Percent Auto 51.9 % (45-73); Platelet Count 312 X10*3/uL (160-400); Red Cell Distribution Width 12.4 % (11.0-16.0); Retic HGB Equivalent 31.8 pg (30.0-35.0); Reticulocyte Percent 1.6 % (0.5-1.8); Reticulocytes Absolute 0.054 X10*6/uL (0.026-0.095)
[2022-11-15 15:44] LABS: Blood Urea Nitrogen 24 mg/dL (9-16); Estimated Glomerular Filt Rate 54; Iron 28 mcg/dL (30-160); Percent Iron Saturation 14 % (15-50); Total Iron Binding Capacity 195 mcg/dL (228-428); Unsaturated Iron Binding 167 ug/dL
[2022-11-15 16:01] LABS: Ferritin 250 ng/mL (10-250)
== END 2022-11-15 14:02 | disposition home or self-care (01) ==
LOC: HO.CT 14:01
PROVIDERS: PCP Internal Medicine; Visit Provider Internal Medicine
DX: R05.9 Cough, unspecified (principal); R63.4 Abnormal weight loss; D64.9 Anemia, unspecified
CPT/HCPCS: 36415; 71260; 82565; 82728; 83540; 84520; 85025; 85045; Q9967

== ENCOUNTER 2022-12-26 16:12 | Outpatient (AMB) | payer OTHER, SELFPAY ==
[2022-12-26 16:32] VITALS: BP 144/72; PULSE 80; O2SAT 97; BMI 26.6
--- NOTE | 2022-12-26 16:32 | MHC.PC.OV ---
Vital Signs 12/26/22 16:32 Height 5 ft 4 in Weight 155 lb BMI 26.6 BP 144/72 H Blood Pressure Location Lt brachial Position Sitting Pulse 80 Pulse Source Pulse Oximeter Temp Source Skin Pulse Oximetry (%) 97 Oxygen Delivery Method Room Air Intake Visit Reasons: HTN, gerd left-sided neck mass Investment Underwriter Required: No Allergies amoxicillin [AMOXICILLIN] Allergy (Unknown, Verified 12/26/22 16:33) UNKNOWN penicillin V Allergy (Unknown, Verified 12/26/22 16:33) Unknown Sulfa (Sulfonamide Antibiotics) [SULFA (SULFONAMIDE ANTIBIOTICS)] Allergy (Unknown, Verified 12/26/22 16:33) UNKNOWN lisinopril Adverse Reaction (Unknown, Verified 12/26/22 16:33) cough Medication List - Last Reconciled 12/26/22 by Jossy Richter MD ascorbate calcium (vitamin C) 500 mg PO DAILY cyclobenzaprine 10 mg PO TID ferrous sulfate (FeroSul) 325 mg PO DAILY fluticasone propionate 50 mcg/actuation (Flonase Allergy Relief) 2 sprays intranasal DAILY hydrochlorothiazide 12.5 mg PO DAILY 90 days levothyroxine 112 mcg PO DAILY losartan 100 mg PO DAILY simvastatin 20 mg PO DAILY terazosin 1 mg PO BEDTIME 90 days Tobacco use date assessed: 12/26/22 Fall risk assessment: No Falls in past year Last assessed Fall Risk: 12/26/22 Dental Screening Dental Screen Date: 12/26/22 Did you have a dental visit in the last 12 months?: Yes Did you have a dental problem in the last 6 months where you did not have access to dental care?: No Was dental information given to patient?: Patient has dentist HPI HTN, gerd left-sided neck mass HPI Details 82-year-old overweight female with a history of overactive bladder GERD hypertension hypothyroidism hypercholesterolemia coming in for follow-up. Last seen in October 2022. Patient's colonoscopy is up-to-date mammogram is due and bone density is up-to-date.. Patient had a chest CT scanPossible mosaic attenuation bilateral lower lobes suggesting underlying small airway disease. No CT evidence of pneumonia. No suspicious lung nodules. Bilateral breast nodular densities, correlate with mammography. Fleischner guidelines were followed. states problem with swallowing but decline further work up for now and wants to wait. [facility] Medical History GERD (gastroesophageal reflux disease) Hemorrhoids with complication Hypercholesterolemia Hypertension Hypothyroid Osteopenia Overweight (BMI 25.0-29.9) Rectal bleeding Surgical History History of appendectomy History of bilateral cataract extraction History of lumpectomy of left breast History of thyroidectomy History of tonsillectomy History of total abdominal hysterectomy and bilateral salpingo-oophorectomy Family History Father Smoker Lung cancer Mother Hypertension Diabetes Crohn disease Hypercholesterolemia Brother Hypertension Brother Diabetes Gastric cancer Paternal Grandfather Prostate cancer Social History Housing: House Alcohol intake: current Alcohol intake frequency: holidays/special occasions only Alcohol type: wine Patient Tobacco Use Status: Former Tobacco user Tobacco use type: Cigarette Years Smoked: quit 23 years old e-Cigarette/Vaping Use: Never Used Second Hand Smoke Exposure: No service: No Current occupational status: retired Current occupational exposures/hazards: No Cognitive needs: No Hearing needs: Yes Vision needs: Yes Questionnaire Thrive Questionnaire Date Thrive assessed: 05/03/22 AUDIT C Alcohol Use Questionnaire (AUDIT-C) 1. How often do you have a drink containing alcohol?: Monthly or less 2. How many drinks containing alcohol do you have on a typical day when you are drinking?: 1 or 2 3. How often do you have six or more drinks on one occasion?: Never Total Score: 1 RALF-7 AMB Questionnaire RALF-7 Date RALF - 7 assessed: 05/03/22 Source: Developed by Drs. Francis Sánchez, Wendy Ellison, Tab Rosa and colleagues, with an educational kentrell from [employer]. Physical exam (Primary Care) Vital Signs: Last Vital Signs Pulse 80 12/26/22 16:32 BP 144/72 H 12/26/22 16:32 Pulse Ox 97 12/26/22 16:32 Oxygen Delivery Method Room Air 12/26/22 16:32 BMI result Body Mass Index 26.6 Tobacco/Smoking Status: Tobacco use Status Tobacco use date assessed 12/26/22 12/26/22 16:33 Patient Tobacco Use Status Former Tobacco user 12/26/22 16:33 Tobacco use type Cigarette 12/26/22 16:33 e-Cigarette/Vaping Use Never Used 12/26/22 16:33 Thrive Assessment: Date of Thrive Assessment Date Thrive assessed 05/03/22 12/26/22 16:33 Const General: alert; No acute distress Eyes Conjunctivae: conjunctivae normal Resp Auscultation: clear to auscultation bilaterally Cardio Rate: regular rate Rhythm: regular rhythm GI Inspection: Yes normal to inspection Extrem General: Yes normal to inspection and No edema Assessment and Plan Assessment & Plan (1) Weight loss: Code(s): R63.4 - Abnormal weight loss (2) Breast cancer screening by mammogram: Code(s): Z12.31 - Encounter for screening mammogram for malignant neoplasm of breast Plan: Reminded about mammogram (3) Hypertension: Code(s): I10 - Essential (primary) hypertension Qualifiers: Hypertension type: essential hypertension Qualified Code(s): I10 - Essential (primary) hypertension Plan: Continue with blood pressure medication. Decrease salt intake and exercise patient is taking losartan 100 mg once a day hydrochlorothiazide 12.5 mg once a day. monitor BP and record (4) Hypothyroid: Comment: Dr. Smith Code(s): E03.9 - Hypothyroidism, unspecified Qualifiers: Hypothyroidism type: acquired Qualified Code(s): E03.9 - Hypothyroidism, unspecified Plan: Continue with thyroid medication (5) Hypercholesterolemia: Code(s): E78.00 - Pure hypercholesterolemia, unspecified Plan: Avoid fried foods, chicken skin, eggs, butter margarine, pastries and meat. Be it pork or beef they have a lot of cholesterol patient taking simvastatin 20 mg once a day LDL goal of less than 130 and triglyceride of less than 150 (6) GERD (gastroesophageal reflux disease): Code(s): K21.9 - Gastro-esophageal reflux disease without esophagitis Qualifiers: Esophagitis presence: without esophagitis Qualified Code(s): K21.9 - Gastro-esophageal reflux disease without esophagitis Plan: Avoid the foods that causes that usually spicy foods, tomato products, juices, coffee, soda and foods that your sensitive to. After eating do not lie down, allow 3-4 hours before in lie down. And keep the head of bed above 30 degrees to avoid the acid from going up. (7) Anemia, iron deficiency: Code(s): D50.9 - Iron deficiency anemia, unspecified Plan: on Iron and to continue. retest 3 months (8) Nasal congestion: Code(s): R09.81 - Nasal congestion Plan: nasal spray sent Orders: Orders Complete Blood Count Auto Diff 2 Months D50.9 - Iron deficiency anemia, unspecified Ferritin 2 Months D50.9 - Iron deficiency anemia, unspecified Reticulocyte Count 2 Months D50.9 - Iron deficiency anemia, unspecified Vitamin B12 and Folate 2 Months D50.9 - Iron deficiency anemia, unspecified MM tomosynthesis screening BI Today Z12.31 - Encounter for screening mammogram for malignant neoplasm of breast Comprehensive Met. Panel 2 Months D50.9 - Iron deficiency anemia, unspecified IRON PROFILE 2 Months D50.9 - Iron deficiency anemia, unspecified Medications: New fluticasone propionate 50 mcg/actuation (Flonase Allergy Relief) administer into each nostril 2 sprays intranasal DAILY 16 grams 3RF R09.81 - Nasal congestion Coding Level of Care Code Est Pt Level 4 (52970) Diagnoses Weight loss R63.4 Breast cancer screening by mammogram Z12.31 Essential hypertension I10 Hypertension type: essential hypertension Acquired hypothyroidism E03.9 Hypothyroidism type: acquired Hypercholesterolemia E78.00 Gastroesophageal reflux disease without esophagitis K21.9 Esophagitis presence: without esophagitis Anemia, iron deficiency D50.9 Nasal congestion R09.81
== END 2022-12-26 17:43 | disposition home or self-care (01) ==
PROVIDERS: PCP Internal Medicine; Visit Provider Internal Medicine
DX: I10 Essential (primary) hypertension (principal); E03.9 Hypothyroidism, unspecified; K21.9 Gastro-esophageal reflux disease without esophagitis; R63.4 Abnormal weight loss; Z12.31 Encounter for screening mammogram for malignant neoplasm of breast; E78.00 Pure hypercholesterolemia, unspecified; D50.9 Iron deficiency anemia, unspecified; R09.81 Nasal congestion
CPT/HCPCS: 99214

== ENCOUNTER 2023-01-06 10:28 | Outpatient (AMB) | payer OTHER, SELFPAY ==
[2023-01-06 10:32] VITALS: BP 136/74; PULSE 78; O2SAT 98; BMI 26.3
--- NOTE | 2023-01-06 10:32 | MHC.PC.OV ---
Vital Signs 01/06/23 10:32 Height 5 ft 4 in Weight 153 lb BMI 26.3 BP 136/74 Blood Pressure Location Lt brachial Position Sitting Pulse 78 Pulse Source Pulse Oximeter Pulse Oximetry (%) 98 Oxygen Delivery Method Room Air Intake Visit Reasons: Rash on right breast/armpit, groin/buttock rash Allergies amoxicillin [AMOXICILLIN] Allergy (Unknown, Verified 01/06/23 10:32) UNKNOWN penicillin V Allergy (Unknown, Verified 01/06/23 10:32) Unknown Sulfa (Sulfonamide Antibiotics) [SULFA (SULFONAMIDE ANTIBIOTICS)] Allergy (Unknown, Verified 01/06/23 10:32) UNKNOWN lisinopril Adverse Reaction (Unknown, Verified 01/06/23 10:32) cough Tobacco use date assessed: 12/26/22 Fall risk assessment: No Falls in past year Last assessed Fall Risk: 01/06/23 Dental Screening Dental Screen Date: 01/06/23 Did you have a dental visit in the last 12 months?: Yes Did you have a dental problem in the last 6 months where you did not have access to dental care?: No Was dental information given to patient?: Patient has dentist HPI Rash on right breast/armpit HPI Details 72-year-old female with hypertension hypothyroid hypercholesterol E GERD anemia coming in for a rash. Patient was just seen in 12/26/2022. rash noted 2 weeks R axilla and pubic area and groid maculopapular 1 cm erythematous pruritic [facility] Medical History GERD (gastroesophageal reflux disease) Hemorrhoids with complication Hypercholesterolemia Hypertension Hypothyroid Osteopenia Overweight (BMI 25.0-29.9) Rectal bleeding Surgical History History of appendectomy History of bilateral cataract extraction History of lumpectomy of left breast History of thyroidectomy History of tonsillectomy History of total abdominal hysterectomy and bilateral salpingo-oophorectomy Family History (Updated 01/06/23 @ 10:33 by Masha Kennedy CMA) Father Smoker Lung cancer Mother Hypertension Diabetes Crohn disease Hypercholesterolemia Brother Hypertension Brother Diabetes Gastric cancer Paternal Grandfather Prostate cancer Social History Housing: House Alcohol intake: current Alcohol intake frequency: holidays/special occasions only Alcohol type: wine Patient Tobacco Use Status: Former Tobacco user Tobacco use type: Cigarette Years Smoked: quit 23 years old e-Cigarette/Vaping Use: Never Used Second Hand Smoke Exposure: No service: No Current occupational status: retired Current occupational exposures/hazards: No Cognitive needs: No Hearing needs: Yes Vision needs: Yes Questionnaire PHQ-9 Over the last 2 weeks, how often have you been bothered by any of the following problems? 1. Little interest or pleasure in doing things: not at all 2. Feeling down, depressed, or hopeless: not at all 3. Trouble falling or staying asleep, or sleeping too much: not at all 4. Feeling tired or having little energy: not at all 5. Poor appetite or overeating: not at all 6. Feeling bad about yourself - or that you are a failure or have let yourself or your family down: not at all 7. Trouble concentrating on things, such as reading the newspaper or watching television: not at all 8. Moving or speaking so slowly that other people could have noticed. Or the opposite - being so fidgety or restless that you have been moving around a lot more than usual: not at all 9. Thoughts that you would be better off or of hurting yourself in some way: not at all Total score: 0 Depression Screening Interpretation: Negative Depression Screening Done: Yes Source: Developed by Drs. Francis Sánchez, Tab Daily and colleagues, with an educational kentrell from [employer]. Thrive Questionnaire Date Thrive assessed: 05/03/22 AUDIT C Alcohol Use Questionnaire (AUDIT-C) 1. How often do you have a drink containing alcohol?: Monthly or less 2. How many drinks containing alcohol do you have on a typical day when you are drinking?: 1 or 2 3. How often do you have six or more drinks on one occasion?: Never Total Score: 1 RALF-7 AMB Questionnaire RALF-7 Date RALF - 7 assessed: 05/03/22 Source: Developed by Drs. Francis Sánchez, Tab Daily and colleagues, with an educational kentrell from [employer]. Physical exam (Primary Care) Vital Signs: Last Vital Signs Pulse 78 01/06/23 10:32 BP 136/74 01/06/23 10:32 Pulse Ox 98 01/06/23 10:32 Oxygen Delivery Method Room Air 01/06/23 10:32 BMI result Body Mass Index 26.3 Tobacco/Smoking Status: Tobacco use Status Tobacco use date assessed 12/26/22 01/06/23 10:42 Patient Tobacco Use Status Former Tobacco user 01/06/23 10:42 Tobacco use type Cigarette 01/06/23 10:42 e-Cigarette/Vaping Use Never Used 01/06/23 10:42 PHQ-9: PHQ-9 Score PHQ-9: Total score 0 01/06/23 11:28 Depression Screening Interpretation: Negative Thrive Assessment: Date of Thrive Assessment Date Thrive assessed 05/03/22 01/06/23 10:42 Office Procedures Flu Questionnaire Does the patient have a severe egg allergy?: No Does the patient have severe life threatening allergies?: No Does the patient have a fever or illness today?: No Has the patient ever had Guillain-[place] Syndrome?: No Has the patient ever had any past reaction to a flu shot?: No Immunizations flu vacc [id number] 6mos up(PF) 60 mcg(15 mcgx4)/0.5 mL IM syringe Performing Provider: Jossy Richter MD [facility] Administered by: Masha Kennedy CMA on 01/06/23 11:28 Dose Route Admin Location Dispensed Lot Number Expiration Date NDC C T Tech 0.5 mL IM Left Deltoid 0.5 mL [id number] 10/01/23 54285-416-28 [employer] VIS Given Date VIS Provided VIS Publication Date 01/06/23 Single Vaccine 20 Eligibility Eligibility Date Funding Source Not [facility] Eligible 01/06/23 Private Assessment and Plan Assessment & Plan (1) Groin rash: Code(s): R21 - Rash and other nonspecific skin eruption (2) Epigastric pain: Code(s): R10.13 - Epigastric pain (3) Weight loss: Code(s): R63.4 - Abnormal weight loss (4) Anemia: Code(s): D64.9 - Anemia, unspecified (5) GERD (gastroesophageal reflux disease): Code(s): K21.9 - Gastro-esophageal reflux disease without esophagitis Qualifiers: Esophagitis presence: without esophagitis Qualified Code(s): K21.9 - Gastro-esophageal reflux disease without esophagitis Orders: Orders CT abdomen pelvis wo/w IV con Today D64.9 - Anemia, unspecified, K21.9 - Gastro-esophageal reflux disease without esophagitis, R10.13 - Epigastric pain, R63.4 - Abnormal weight loss Influenza [id number] Immunization Today Z23 - Encounter for immunization Referrals Dermatology Referral R21 - Rash and other nonspecific skin eruption Medications: New permethrin 5% apply second treatment 14 days after first treatment if live lice remain 1 appl topical Q14D 60 grams 0RF R21 - Rash and other nonspecific skin eruption Coding Level of Care Code Est Pt Level 3 (08376) Diagnoses Groin rash R21 Epigastric pain R10.13 Weight loss R63.4 Anemia D64.9 Gastroesophageal reflux disease without esophagitis K21.9 Esophagitis presence: without esophagitis
== END 2023-01-06 11:25 | disposition home or self-care (01) ==
PROVIDERS: PCP Internal Medicine; Visit Provider Internal Medicine
DX: R21 Rash and other nonspecific skin eruption (principal); R10.13 Epigastric pain; R63.4 Abnormal weight loss; D64.9 Anemia, unspecified; K21.9 Gastro-esophageal reflux disease without esophagitis; Z23 Encounter for immunization
CPT/HCPCS: 90471; 90686; 99213

== ENCOUNTER 2023-01-27 10:14 | Outpatient (REF) | payer OTHER, SELFPAY ==
[2023-01-27 13:32] LABS: MANUAL DIFF FLAG NO
[2023-01-27 13:55] LABS: Basophils Absolute Auto 0.1 X10*3/uL (0.0-0.2); Basophils Percent Auto 1.1 % (0-2); Eosinophils Absolute Auto 0.3 X10*3/uL (0.0-0.4); Eosinophils Percent Auto 4.1 % (0-4); Hematocrit 34.2 % (37.0-47.0); Hemoglobin 10.9 g/dl (12.0-16.0); Imm Gran Abs Auto 0.01 X10*3/uL (0.00-0.03); Imm Gran Pct Auto 0.2 % (0.0-0.4); Immature Retic Fraction 11.4 % (3.0-15.9); Lymphocytes Percent Auto 31.5 % (20-40); Mean Corpuscular HGB Conc 31.9 g/dl (31.0-35.0); Mean Corpuscular Hemoglobin 28.1 pg (27.0-33.0); Mean Corpuscular Volume 88.1 fL (80.0-98.0); Monocytes Absolute Auto 0.8 X10*3/uL (0.1-1.2); Monocytes Percent Auto 11.9 % (2-11); Neutrophils Absolute Auto 3.2 x10*3/uL (2.0-8.3); Neutrophils Percent Auto 51.2 % (45-73); Platelet Count 308 X10*3/uL (160-400); Red Blood Count 3.88 X10*6/uL (4.20-5.50); Red Cell Distribution Width 14.2 % (11.0-16.0); Retic HGB Equivalent 33.1 pg (30.0-35.0); Reticulocyte Percent 1.3 % (0.5-1.8); Reticulocytes Absolute 0.051 X10*6/uL (0.026-0.095); White Blood Count 6.3 X10*3/uL (4.8-10.8)
[2023-01-27 14:04] LABS: Alanine Aminotransferase 19 U/L (0-31); Albumin Level 4.1 g/dL (3.5-5.0); Alkaline Phosphatase 86 U/L (39-117); Anion Gap 14 (12-20); Aspartate Amino Transferase 22 U/L (5-31); Bilirubin Total 0.6 mg/dL (0.0-1.0); Blood Urea Nitrogen 18 mg/dL (9-16); Calcium 10.3 mg/dL (8.4-10.2); Carbon Dioxide 26 mmol/L (22-29); Chloride 105 mmol/L (96-108); Estimated Glomerular Filt Rate > 60; Glucose Random 103 mg/dL (60-115); Iron 42 mcg/dL (30-160); Percent Iron Saturation 20 % (15-50); Potassium 3.9 mmol/L (3.3-5.1); Sodium 141 mmol/L (135-145); Total Iron Binding Capacity 207 mcg/dL (228-428); Unsaturated Iron Binding 165 ug/dL
[2023-01-27 14:22] LABS: Ferritin 217 ng/mL (10-250)
[2023-01-27 14:31] LABS: Folate 14.8 ng/mL (> or = 4.0); Vitamin B12 787 pg/mL (200-900)
== END 2023-01-27 10:15 | disposition home or self-care (01) ==
LOC: HO.HMGCLDS 10:14
PROVIDERS: PCP Internal Medicine; Visit Provider Internal Medicine
DX: D50.9 Iron deficiency anemia, unspecified (principal)
CPT/HCPCS: 36415; 80053; 82607; 82728; 82746; 83540; 85025; 85045

== ENCOUNTER 2023-03-15 11:17 | Outpatient (AMB) | payer OTHER, SELFPAY ==
[2023-03-15 11:22] VITALS: BP 160/94; PULSE 75; O2SAT 95; BMI 26.1
--- NOTE | 2023-03-15 11:22 | A.OFFPC_ITS ---
Vital Signs 03/15/23 11:22 Height 5 ft 4 in Weight 152 lb 2 oz BMI 26.1 BP 160/94 H Blood Pressure Location Lt brachial Position Sitting Pulse 75 Pulse Source Pulse Oximeter Pulse Oximetry (%) 95 Oxygen Delivery Method Room Air Intake Visit Reasons: Annual PE Lap Winder Required: No Accompanied by: Self / Same As Patient Allergies amoxicillin [AMOXICILLIN] Allergy (Unknown, Verified 03/15/23 12:04) UNKNOWN penicillin V Allergy (Unknown, Verified 03/15/23 12:04) Unknown Sulfa (Sulfonamide Antibiotics) [SULFA (SULFONAMIDE ANTIBIOTICS)] Allergy (Unknown, Verified 03/15/23 12:04) UNKNOWN lisinopril Adverse Reaction (Unknown, Verified 03/15/23 12:04) cough Medication List - Last Reconciled 03/15/23 by Jossy Richter MD cyclobenzaprine 10 mg PO TID fluticasone propionate 50 mcg/actuation (Flonase Allergy Relief) 2 sprays intranasal DAILY hydrochlorothiazide 12.5 mg PO DAILY 90 days Lactobacillus rhamnosus GG (Culturelle) 1 cap PO DAILY levothyroxine 112 mcg PO DAILY losartan 100 mg PO DAILY multivit,Ca,[id number]-[id number]-hsueri #181 1,000 unit tabs PO multivitamin 1 tab PO DAILY ruxolitinib 1.5% (Opzelura) 1 appl topical BID simvastatin 20 mg PO DAILY tacrolimus 0.1% 1 appl topical BID terazosin 1 mg PO BEDTIME 90 days Tobacco use date assessed: 12/26/22 Fall risk assessment: No Falls in past year Last assessed Fall Risk: 03/15/23 Dental Screening Dental Screen Date: 03/15/23 Did you have a dental visit in the last 12 months?: Yes Did you have a dental problem in the last 6 months where you did not have access to dental care?: No Was dental information given to patient?: Patient has dentist HPI Annual PE HPI Details 73-year-old female with hypothyroidism h ypercholesterolemia hypertension GERD coming in for physical exam last seen in January 2023. Patient's colonoscopy is up-to-date February 2022 mammogram is due and bone density is due having osteopenia.. Patient has seen Dermatology January 2023 PAitent was prescribed tacrolimus and Opzelura dx: Pitiriasis rosea. BP high today. noted weight loss still ocurring , CT abd denied. concern with weight loss still BP high PFSH Medical History GERD (gastroesophageal reflux disease) Hemorrhoids with complication Hypercholesterolemia Hypertension Hypothyroid Osteopenia Overweight (BMI 25.0-29.9) Rectal bleeding Surgical History History of total abdominal hysterectomy and bilateral salpingo-oophorectomy History of bilateral cataract extraction History of lumpectomy of left breast History of thyroidectomy History of tonsillectomy History of appendectomy Family History Father Smoker Lung cancer Mother Hypertension Diabetes Crohn disease Hypercholesterolemia Brother Hypertension Brother Diabetes Gastric cancer Paternal Grandfather Prostate cancer Social History (Updated 03/15/23 @ 12:24 by Jossy Richter MD) Housing: House Alcohol intake: current Alcohol intake frequency: holidays/special occasions only Alcohol type: wine Comment: glass of wine 5 x a week Patient Tobacco Use Status: Former Tobacco user Tobacco use type: Cigarette Years Smoked: quit 23 years old e-Cigarette/Vaping Use: Never Used Second Hand Smoke Exposure: No service: No Current occupational status: retired Current occupational exposures/hazards: No Cognitive needs: No Hearing needs: Yes Vision needs: Yes Questionnaire Thrive Questionnaire Date Thrive assessed: 05/03/22 RALF-7 AMB Questionnaire RALF-7 Date RALF - 7 assessed: 05/03/22 Source: Developed by Drs. Francis Sánchez, Wendy Ellison, Tab Rosa and colleagues, with an educational kentrell from [employer]. Review of Systems Const Denies poor appetite and Denies weakness Eyes Denies no additional complaints ENT Reports Normal hearing present, Denies dizziness, Denies nasal congestion, Denies tinnitus and Denies sore throat Card Denies chest pain, Denies syncope, Denies rapid heart rate and Denies dyspnea Resp Denies cough and Denies dyspnea GI Denies change in stool character, Reports constipation, Denies diarrhea, Denies nausea and Denies vomiting Denies urinary frequency, Denies difficulty voiding and Denies dysuria Neuro Reports Normal hearing present, Denies confusion, Denies dizziness, Denies syncope and Denies weakness Psych Denies confusion Physical exam (Primary Care) Vital Signs: Last Vital Signs Pulse 75 03/15/23 11:22 BP 160/94 H 03/15/23 11:22 Pulse Ox 95 03/15/23 11:22 Oxygen Delivery Method Room Air 03/15/23 11:22 BMI result Body Mass Index 26.1 Tobacco/Smoking Status: Tobacco use Status Tobacco use date assessed 12/26/22 03/15/23 11:24 Patient Tobacco Use Status Former Tobacco user 03/15/23 11:24 Tobacco use type Cigarette 03/15/23 11:24 e-Cigarette/Vaping Use Never Used 03/15/23 11:24 Thrive Assessment: Date of Thrive Assessment Date Thrive assessed 05/03/22 03/15/23 11:24 Const General: No confusion Orientation/consciousness: No confusion HENMT Head: Yes normocephalic Ears: external ears normal and TM's normal bilaterally Face and sinus: Yes normal facial exam Mouth: moist mucous membranes Throat: Yes tonsils normal Eyes Conjunctivae: conjunctivae normal Pupils: Equal, round and reactive pupils present and Pupil accommodation reflex normal Direct Ophthalmoscopy: normal light reflex Neck Neck: No lymphadenopathy Thyroid: Thyroid normal Chest Chest palpation & inspection: normal inspection of the chest Resp Effort & Inspection: normal respiratory effort and no audible wheezes Auscultation: clear to auscultation bilaterally, no crackles, no wheezes and lung sounds not diminished Cardio Rate: regular rate Rhythm: regular rhythm Peripheral pulses: radial pulses present and dorsalis pedis present GI Other: guaiac negative Palpation (GI): no masses Auscultation: normal bowel sounds and normoactive bowel sounds Rectal Exam - Female: deferred Skin General skin exam: no rashes or lesions noted Rashes: no rashes Neuro General: No confusion Cranial nerves: Yes Equal, round and reactive pupils present and Yes Normal hearing present Cognition (Neuro): normal cognition Gait exam (Neuro): Normal gait present Motor exam (neuro): 5/5 motor strength present throughout Deep tendon reflexes (DTR's): Right brachioradialis reflex intensity grade: 2+, Left brachioradialis reflex intensity grade: 2+, Right patellar reflex intensity grade: 2+ and Left patellar reflex intensity grade: 2+ Extrem General: No edema Assessment and Plan Assessment & Plan (1) Annual physical exam: Code(s): Z00.00 - Encounter for general adult medical examination without abnormal findings (2) Hypothyroid: Comment: Dr. Smith Code(s): E03.9 - Hypothyroidism, unspecified Qualifiers: Hypothyroidism type: acquired Qualified Code(s): E03.9 - Hypothyroidism, unspecified Plan: Continue with the thyroid medication November 2022 last blood work (3) Hypercholesterolemia: Code(s): E78.00 - Pure hypercholesterolemia, unspecified Plan: Avoid fried foods, chicken skin, eggs, butter margarine, pastries and meat. Be it pork or beef they have a lot of cholesterol November 2022 last blood work LDL goal of less than 130 and triglyceride of less than 150. Patient is on simvastatin 20 mg once a day (4) Hypertension: Code(s): I10 - Essential (primary) hypertension Qualifiers: Hypertension type: essential hypertension Qualified Code(s): I10 - Essential (primary) hypertension Plan: Continue with blood pressure medication. Decrease salt intake and exercise cont inue with losartan 100 mg once a day hydrochlorothiazide 12.5 mg once a day. advised monitor the BPmj (5) GERD (gastroesophageal reflux disease): Code(s): K21.9 - Gastro-esophageal reflux disease without esophagitis Qualifiers: Esophagitis presence: without esophagitis Qualified Code(s): K21.9 - Gastro-esophageal reflux disease without esophagitis Plan: Avoid the foods that causes that usually spicy foods, tomato products, juices, coffee, soda and foods that your sensitive to. After eating do not lie down, allow 3-4 hours before in lie down. And keep the head of bed above 30 degrees to avoid the acid from going up. (6) Osteopenia: Comment: May 20182020 Code(s): M85.80 - Other specified disorders of bone density and structure, unspecified site Plan: Reminded about bone density (7) Epigastric pain: Code(s): R10.13 - Epigastric pain Orders: Orders Free T4 (Free Thyroxine) Today D64.9 - Anemia, unspecified Thyroid Stimulating Hormone Today D64.9 - Anemia, unspecified Reticulocyte Count Today D64.9 - Anemia, unspecified Ferritin Today D64.9 - Anemia, unspecified Vitamin B12 and Folate Today D64.9 - Anemia, unspecified XR DEXA axial skeleton Today M81.0 - Age-related osteoporosis without current pathological fracture, M85.80 - Other specified disorders of bone density and structure, unspecified site Complete Blood Count Auto Diff Today D64.9 - Anemia, unspecified Comprehensive Met. Panel Today D64.9 - Anemia, unspecified IRON PROFILE Today D64.9 - Anemia, unspecified US abdomen complete Today R10.13 - Epigastric pain, R79.89 - Other specified abnormal findings of blood chemistry Coding Level of Care Code Est Pt Prev Care >65y(57416) Diagnoses Annual physical exam Z00.00 Acquired hypothyroidism E03.9 Hypothyroidism type: acquired Hypercholesterolemia E78.00 Essential hypertension I10 Hypertension type: essential hypertension Gastroesophageal reflux disease without esophagitis K21.9 Esophagitis presence: without esophagitis Osteopenia M85.80 Epigastric pain R10.13
== END 2023-03-15 13:01 | disposition home or self-care (01) ==
PROVIDERS: PCP Internal Medicine; Visit Provider Internal Medicine
DX: Z00.00 Encounter for general adult medical examination without abnormal findings (principal); E03.9 Hypothyroidism, unspecified; E78.00 Pure hypercholesterolemia, unspecified; I10 Essential (primary) hypertension; K21.9 Gastro-esophageal reflux disease without esophagitis; M85.80 Other specified disorders of bone density and structure, unspecified site; R10.13 Epigastric pain
CPT/HCPCS: 99397

== ENCOUNTER 2023-04-18 08:49 | Outpatient (REF) | payer OTHER, SELFPAY ==
--- NOTE | ~2023-04-18 | US_ITS ---
EXAMINATION: US ABDOMEN COMPLETE CLINICAL INFORMATION: Other specified abnormal findings of blood chemistry. COMPARISON: Renal ultrasound 11/09/2021. Ultrasound abdomen 07/28/2016. KUB 03/21/2016. TECHNIQUE: Real-time imaging of the abdominal viscera. FINDINGS: PANCREAS: Normal. ABDOMINAL AORTA: The proximal, mid, and distal segments are normal in caliber. INFERIOR VENA CAVA: Visualized portions are normal. LIVER: Liver has normal size, contour and echotexture. No evidence of focal liver lesion or intrahepatic ductal dilatation. GALLBLADDER: Normal. The gallbladder is physiologically distended without evidence of stones, sludge, polyps, wall thickening or pericholecystic fluid. COMMON BILE DUCT: Normal in caliber measuring 0.6 cm in diameter. RIGHT KIDNEY: Normal. No hydronephrosis. No renal calculi or focal parenchymal lesions. The kidney measures 10.7 cm in maximum dimension. LEFT KIDNEY: No hydronephrosis or renal calculi. The kidney measures 11.2 cm in maximum dimension. There are a few simple peripelvic cysts. No renal imaging follow-up is recommended for simple cysts. The technologist has identified and measured a 1.3 x 1.2 x 1.3 cm hyperechoic focus in the interpolar region. This corresponds to an area of cortical lobulation. Based on the images presented, it is difficult to determine whether this represents an imaging artifact or a newly developing cortical lesion, but artifact is suspected. SPLEEN: Normal. The spleen measures 10.3 cm in maximum dimension. FREE FLUID: None. US/US abdomen complete IMPRESSION: * Gallbladder is normal. No evidence of cholelithiasis, cholecystitis or biliary tract obstruction. * The liver has a normal sonographic appearance. * The left kidney chronically has lobulated contour. A hyperechoic focus detected in the interpolar region is very likely artifactual. However, due to uncertainty, recommend renal ultrasound follow-up in 6 months to ensure absence of any developing lesion.
[2023-04-18 09:26] LABS: MANUAL DIFF FLAG NO
[2023-04-18 09:34] LABS: Basophils Absolute Auto 0.1 X10*3/uL (0.0-0.2); Basophils Percent Auto 1.1 % (0-2); Eosinophils Absolute Auto 0.5 X10*3/uL (0.0-0.4); Eosinophils Percent Auto 6.3 % (0-4); Hematocrit 38.9 % (37.0-47.0); Hemoglobin 12.6 g/dl (12.0-16.0); Imm Gran Abs Auto 0.02 X10*3/uL (0.00-0.03); Imm Gran Pct Auto 0.2 % (0.0-0.4); Immature Retic Fraction 13.6 % (3.0-15.9); Lymphocytes Absolute Auto 2.5 X10*3/uL (1.2-4.9); Lymphocytes Percent Auto 30.4 % (20-40); Mean Corpuscular HGB Conc 32.4 g/dl (31.0-35.0); Mean Corpuscular Hemoglobin 28.8 pg (27.0-33.0); Mean Platelet Volume 9.5 fL (9.4-12.3); Monocytes Absolute Auto 0.9 X10*3/uL (0.1-1.2); Monocytes Percent Auto 11.1 % (2-11); Neutrophils Absolute Auto 4.1 x10*3/uL (2.0-8.3); Neutrophils Percent Auto 50.9 % (45-73); Platelet Count 315 X10*3/uL (160-400); Red Blood Count 4.37 X10*6/uL (4.20-5.50); Red Cell Distribution Width 12.9 % (11.0-16.0); Retic HGB Equivalent 34.7 pg (30.0-35.0); Reticulocyte Percent 1.5 % (0.5-1.8); Reticulocytes Absolute 0.066 X10*6/uL (0.026-0.095); White Blood Count 8.1 X10*3/uL (4.8-10.8)
[2023-04-18 10:23] LABS: Alanine Aminotransferase 27 U/L (0-31); Albumin Level 4.2 g/dL (3.5-5.0); Alkaline Phosphatase 87 U/L (39-117); Anion Gap 15 (12-20); Aspartate Amino Transferase 34 U/L (5-31); Bilirubin Total 0.5 mg/dL (0.0-1.0); Blood Urea Nitrogen 23 mg/dL (9-16); Calcium 10.7 mg/dL (8.4-10.2); Carbon Dioxide 27 mmol/L (22-29); Chloride 103 mmol/L (96-108); Estimated Glomerular Filt Rate 57; Glucose Random 95 mg/dL (60-115); Iron 68 mcg/dL (30-160); Percent Iron Saturation 28 % (15-50); Potassium 4.7 mmol/L (3.3-5.1); Sodium 140 mmol/L (135-145); Total Iron Binding Capacity 240 mcg/dL (228-428); Total Protein 7.7 g/dL (6.5-8.0); Unsaturated Iron Binding 172 ug/dL
[2023-04-18 10:25] LABS: Ferritin 169 ng/mL (10-250); Free T4 (Free Thyroxine) 1.36 ng/dL (0.71-1.85); Thyroid Stimulating Hormone 1.14 uIU/mL (0.32-4.0)
[2023-04-18 10:42] LABS: Folate 14.1 ng/mL (> or = 4.0); Vitamin B12 780 pg/mL (200-900)
== END 2023-04-18 08:50 | disposition home or self-care (01) ==
LOC: HO.US 08:49
PROVIDERS: PCP Internal Medicine; Visit Provider Internal Medicine
DX: R10.13 Epigastric pain (principal); R79.89 Other specified abnormal findings of blood chemistry; D64.9 Anemia, unspecified
CPT/HCPCS: 36415; 76700; 80053; 82607; 82728; 82746; 83540; 84439; 84443; 85025; 85045

== ENCOUNTER 2023-04-26 09:04 | Outpatient (REF) | payer OTHER, SELFPAY ==
--- NOTE | ~2023-04-26 | MM_ITS ---
EXAMINATION: BONE DENSITOMETRY CLINICAL INDICATION: Age-related osteoporosis without current pathological fracture. COMPARISON: This is the patient's baseline examination. TECHNIQUE: Using a [employer] DXA System (software version: 13.1) manufactured by [employer], dual-energy x-ray absorptiometry was performed of the lumbar spine and left hip. The images are of good technical quality. Summary results are attached. FINDINGS: LEFT FEMUR, NECK: BMD 0.823 g/cm2, Z-score 0.3, T-score -1.5, osteopenia. LEFT FEMUR, TOTAL: BMD 0.865 g/cm2, Z-score 0.5, T-score -1.1, osteopenia. AP SPINE L1-L4: BMD 1.294 g/cm2, Z-score 2.6, T-score 1.0, normal. IDENTIFIED RISK FACTORS: Early menopause, secondary osteoporosis, hysterectomy, bilateral oophorectomy, height loss. HISTORY OF FRACTURE: None listed. MEDICATIONS: Vitamin D. MM/XR DEXA axial skeleton IMPRESSION: 1. DIAGNOSIS: Osteopenia based on the lowest T-score value of -1.5 in the femoral neck applying World Health Organization criteria. 2. 10-YEAR FRACTURE RISK PREDICTION, FRAX: Major osteoporotic fracture (clinical spine, forearm, hip or shoulder) 11.6%. Hip fracture 2.4%. 3. Treatment Recommendations: NOF guidelines recommend consideration for treatment in postmenopausal women and men age 50 and older presenting with the following: -A hip or vertebral (clinical or morphometric) fracture. -T-score less than or equal to -2.5 at the femoral neck or spine after appropriate evaluation to exclude secondary causes. -Low bone mass at the hip or spine and a 10-year fracture probability by FRAX of greater than or equal to 3% for hip fracture or greater than or equal to 20% for major osteoporotic fracture based on the [place] adapted WHO algorithm. 4. Other Recommendations: All treatment decisions require clinical judgment and consideration of individual patient factors, including patient preferences, comorbidities, previous drug use, risk factors not captured in the FRAX model (e.g. frailty, falls, vitamin D deficiency, increased bone turnover, interval significant decline in bone density) and possible under or overestimation of fracture risk by FRAX. Additional medical evaluation for secondary cause of low bone mineral density may be appropriate. FUTURE SCAN RECOMMENDATION: People with diagnosed cases of osteoporosis or at high risk for fracture should have regular bone mineral density tests. For patients eligible for Medicare, routine testing is allowed once every 2 years. The testing frequency can be increased to one year for patients who have rapidly progressing disease, those who are receiving or discontinuing medical therapy to restore bone mass, or have additional risk factors.
== END 2023-04-26 09:05 | disposition home or self-care (01) ==
LOC: HO.MAMMO 09:04
PROVIDERS: PCP Internal Medicine; Visit Provider Internal Medicine
DX: Z13.820 Encounter for screening for osteoporosis (principal); Z78.0 Asymptomatic menopausal state; M85.80 Other specified disorders of bone density and structure, unspecified site; M81.0 Age-related osteoporosis without current pathological fracture
CPT/HCPCS: 77080

== ENCOUNTER 2023-05-22 09:57 | Outpatient (REF) | payer OTHER, SELFPAY ==
[2023-05-22 13:54] LABS: Calcium 9.7 mg/dL (8.4-10.2)
[2023-05-22 15:23] LABS: Parathyroid Hormone Intact 51.3 pg/mL (8.7-77.1)
[2023-05-23 15:28] LABS: Calcium, Ionized 5.3 mg/dL (4.7-5.5)
== END 2023-05-22 09:58 | disposition home or self-care (01) ==
LOC: HO.HMGCLDS 09:57
PROVIDERS: PCP Internal Medicine; Visit Provider Internal Medicine
DX: E83.52 Hypercalcemia (principal)
CPT/HCPCS: 36415; 82310; 82330; 83970

== ENCOUNTER 2023-05-26 14:23 | Outpatient (AMB) | payer OTHER, SELFPAY ==
[2023-05-26 14:26] VITALS: BP 132/88; PULSE 86; O2SAT 98; BMI 26.6
--- NOTE | 2023-05-26 14:26 | MHC.PC.OV ---
Vital Signs 05/26/23 14:26 Height 5 ft 4 in Weight 155 lb 0.4 oz BMI 26.6 BP 132/88 Blood Pressure Location Lt brachial Position Sitting Pulse 86 Pulse Source Pulse Oximeter Pulse Oximetry (%) 98 Oxygen Delivery Method Room Air Intake Visit Reasons: 2mth f/u Intake Note: Patient is here to follow up on 2 months Application Developer Manager Required: No Allergies amoxicillin [AMOXICILLIN] Allergy (Unknown, Verified 05/26/23 14:27) UNKNOWN penicillin V Allergy (Unknown, Verified 05/26/23 14:27) Unknown Sulfa (Sulfonamide Antibiotics) [SULFA (SULFONAMIDE ANTIBIOTICS)] Allergy (Unknown, Verified 05/26/23 14:27) UNKNOWN lisinopril Adverse Reaction (Unknown, Verified 05/26/23 14:27) cough Medication List - Last Reconciled 05/26/23 by Jossy Richter MD cyclobenzaprine 10 mg PO TID fluticasone propionate 50 mcg/actuation (Flonase Allergy Relief) 2 sprays intranasal DAILY hydrochlorothiazide 12.5 mg PO DAILY 90 days hydrocortisone 2.5% (Proctosol HC) 1 appl TN BID-QID PRN Lactobacillus rhamnosus GG (Culturelle) 1 cap PO DAILY levothyroxine 112 mcg PO DAILY losartan 100 mg PO DAILY multivit,Ca,[id number]-[id number]-wetmkg #181 1,000 unit tabs PO multivitamin 1 tab PO DAILY ruxolitinib 1.5% (Opzelura) 1 appl topical BID simvastatin 20 mg PO DAILY tacrolimus 0.1% 1 appl topical BID terazosin 1 mg PO BEDTIME 90 days triamcinolone acetonide 0.1% 1 appl topical BID Tobacco use date assessed: 05/26/23 Fall risk assessment: No Falls in past year Last assessed Fall Risk: 05/26/23 Dental Screening Dental Screen Date: 05/26/23 HPI 2mth f/u HPI Details 73-year-old female with hypertension hypercholesterolemia GERD osteopenia last seen in March 2023 physical exam patient is up-to-date with colonoscopy February 2022 mammogram is up-to-date January 2023 and bone density is up-to-date April 2023. noted weigh gain and BP good., diarrhea ocurring with BM but is better now- had [facility] Medical History (Updated 05/26/23 @ 15:02 by Jossy Richter MD) Hemorrhoids with complication Rectal bleeding Osteopenia GERD (gastroesophageal reflux disease) Overweight (BMI 25.0-29.9) Hypertension Hypothyroid Hypercholesterolemia Surgical History History of total abdominal hysterectomy and bilateral salpingo-oophorectomy History of bilateral cataract extraction History of lumpectomy of left breast History of thyroidectomy History of tonsillectomy History of appendectomy Family History Father Smoker Lung cancer Mother Hypertension Diabetes Crohn disease Hypercholesterolemia Brother Hypertension Brother Diabetes Gastric cancer Paternal Grandfather Prostate cancer Social History (Updated 03/15/23 @ 12:24 by Jossy Richter MD) Housing: House Alcohol intake: current Alcohol intake frequency: holidays/special occasions only Alcohol type: wine Comment: glass of wine 5 x a week Patient Tobacco Use Status: Former Tobacco user Tobacco use type: Cigarette Years Smoked: quit 23 years old e-Cigarette/Vaping Use: Never Used Second Hand Smoke Exposure: No service: No Current occupational status: retired Current occupational exposures/hazards: No Cognitive needs: No Hearing needs: Yes Vision needs: Yes Questionnaire Thrive Questionnaire Date Thrive assessed: 05/26/23 I am a: Patient What is your living situation today?: I have a steady place to live Within the past 12 months, did the food you bought not last and you didn't have the money to get more?: Never true Within the past 12 months, did you worry whether your food would run out before you got money to buy more?: Never true Do you have trouble paying for medicines?: No Do you have trouble getting transportation to medical appointments?: No Do you have trouble paying your heating and electricity bill?: No Do you have trouble taking care of your child, family member or friend?: No Do you have trouble with day-to-day activities such as bathing, preparing meals, shopping, managing finances, etc.?: No Are you currently unemployed and looking for a job?: No Are you interested in more education?: No Please select the resources that you would like help with: None THRIVE Score: 0 AUDIT C Alcohol Use Questionnaire (AUDIT-C) 1. How often do you have a drink containing alcohol?: Monthly or less 2. How many drinks containing alcohol do you have on a typical day when you are drinking?: 1 or 2 3. How often do you have six or more drinks on one occasion?: Never Total Score: 1 RALF-7 AMB Questionnaire RALF-7 Date RALF - 7 assessed: 05/26/23 Source: Developed by Drs. Francis Sánchez, Wendy Ellison, Tab Rosa and colleagues, with an educational kentrell from [employer]. Physical exam (Primary Care) Vital Signs: Last Vital Signs Pulse 86 05/26/23 14:26 BP 132/88 05/26/23 14:26 Pulse Ox 98 05/26/23 14:26 Oxygen Delivery Method Room Air 05/26/23 14:26 BMI result Body Mass Index 26.6 Tobacco/Smoking Status: Tobacco use Status Tobacco use date assessed 05/26/23 05/26/23 14:28 Patient Tobacco Use Status Former Tobacco user 05/26/23 14:28 Tobacco use type Cigarette 05/26/23 14:28 e-Cigarette/Vaping Use Never Used 05/26/23 14:28 Thrive Assessment: Date of Thrive Assessment Date Thrive assessed 05/26/23 05/26/23 14:28 Const General: alert; No acute distress Eyes Conjunctivae: conjunctivae normal Resp Auscultation: clear to auscultation bilaterally Cardio Rate: regular rate Rhythm: regular rhythm GI Inspection: Yes normal to inspection Extrem General: Yes normal to inspection and No edema Assessment and Plan Assessment & Plan (1) Hypercalcemia: Code(s): E83.52 - Hypercalcemia Plan: Resolved (2) Osteopenia: Comment: May 2018, 2020April 2023 Code(s): M85.80 - Other specified disorders of bone density and structure, unspecified site Plan: Discussed about calcium rich diet and vitamin-D as well as keeping active. (3) GERD (gastroesophageal reflux disease): Code(s): K21.9 - Gastro-esophageal reflux disease without esophagitis Qualifiers: Esophagitis presence: without esophagitis Qualified Code(s): K21.9 - Gastro-esophageal reflux disease without esophagitis Plan: Avoid the foods that causes that usually spicy foods, tomato products, juices, coffee, soda and foods that your sensitive to. After eating do not lie down, allow 3-4 hours before in lie down. And keep the head of bed above 30 degrees to avoid the acid from going up. (4) Hypertension: Code(s): I10 - Essential (primary) hypertension Qualifiers: Hypertension type: essential hypertension Qualified Code(s): I10 - Essential (primary) hypertension Plan: Continue with blood pressure medication. Decrease salt intake and exercise patient takes hydrochlorothiazide and losartan (5) Hypothyroid: Comment: Dr. Smith Code(s): E03.9 - Hypothyroidism, unspecified Qualifiers: Hypothyroidism type: acquired Qualified Code(s): E03.9 - Hypothyroidism, unspecified Plan: Continue with thyroid medication (6) Hypercholesterolemia: Code(s): E78.00 - Pure hypercholesterolemia, unspecified Plan: Avoid fried foods, chicken skin, eggs, butter margarine, pastries and meat. Be it pork or beef they have a lot of cholesterol LDL goal of less than 130 and triglyceride of less than 150. Patient on simvastatin (7) Eczema: Code(s): L30.9 - Dermatitis, unspecified Medications: New hydrocortisone 2.5% (Proctosol HC) 1 appl TN BID-QID PRN 30 grams 0RF hemorrhoids K64.9 - Unspecified hemorrhoids triamcinolone acetonide 0.1% 1 appl topical BID 30 grams 0RF L30.9 - Dermatitis, unspecified Coding Level of Care Code Est Pt Level 4 (50003) Diagnoses Hypercalcemia E83.52 Osteopenia M85.80 Gastroesophageal reflux disease without esophagitis K21.9 Esophagitis presence: without esophagitis Essential hypertension I10 Hypertension type: essential hypertension Acquired hypothyroidism E03.9 Hypothyroidism type: acquired Hypercholesterolemia E78.00 Eczema L30.9
== END 2023-05-26 15:11 | disposition home or self-care (01) ==
PROVIDERS: PCP Internal Medicine; Visit Provider Internal Medicine
DX: E83.52 Hypercalcemia (principal); M85.80 Other specified disorders of bone density and structure, unspecified site; K21.9 Gastro-esophageal reflux disease without esophagitis; I10 Essential (primary) hypertension; E03.9 Hypothyroidism, unspecified; E78.00 Pure hypercholesterolemia, unspecified; L30.9 Dermatitis, unspecified
CPT/HCPCS: 99214

== ENCOUNTER 2023-06-21 12:52 | Outpatient (REF) | payer OTHER, SELFPAY ==
[2023-06-21 19:12] LABS: Urine Cytology See Pathology rpt
== END 2023-06-21 12:53 | disposition home or self-care (01) ==
LOC: HO.LNP 12:52
PROVIDERS: Visit Provider Nurse Practitioner Family
DX: R31.29 Other microscopic hematuria (principal); N32.81 Overactive bladder
CPT/HCPCS: 51798; 81003; 88112

== ENCOUNTER 2023-06-21 12:52 | Outpatient (AMB) | payer OTHER, SELFPAY ==
--- NOTE | 2023-06-21 13:01 | MHC.OFFVIS ---
Intake Intake Visit Reasons: 1y follow up Intake Note: Patient presents today for Follow Up for [facility] Medications: Terazosin Antibiotic Allergy: Amoxicillin, Penicillin, Sulfa Blood Thinner: None PVR: 0ml's Correctional Officer Chief Required: No Accompanied by: Self / Same As Patient Allergies amoxicillin [AMOXICILLIN] Allergy (Unknown, Verified 06/21/23 21:15) UNKNOWN penicillin V Allergy (Unknown, Verified 06/21/23 21:15) Unknown Sulfa (Sulfonamide Antibiotics) [SULFA (SULFONAMIDE ANTIBIOTICS)] Allergy (Unknown, Verified 06/21/23 21:15) UNKNOWN lisinopril Adverse Reaction (Unknown, Verified 06/21/23 21:15) cough Medication List - Last Reconciled 06/21/23 by TIMOTHY Henderson cyclobenzaprine 10 mg PO TID fluticasone propionate 50 mcg/actuation (Flonase Allergy Relief) 2 sprays intranasal DAILY hydrochlorothiazide 12.5 mg PO DAILY 90 days hydrocortisone 2.5% (Proctosol HC) 1 appl [place] BID-QID PRN Lactobacillus rhamnosus GG (Culturelle) 1 cap PO DAILY levothyroxine 112 mcg PO DAILY losartan 100 mg PO DAILY multivit,Ca,uja-B8-cwdrww #181 1,000 unit tabs PO multivitamin 1 tab PO DAILY simvastatin 20 mg PO DAILY tacrolimus 0.1% 1 appl topical BID terazosin 1 mg PO BEDTIME 90 days triamcinolone acetonide 0.1% 1 appl topical BID HPI HPI Comments History of Present Illness Details Roopa is a very pleasant 73-year-old female patient of Dr. Richter. She has a past medical history of hemorrhoids, osteopenia, GERD, hypertension, hypothyroidism, and hypercholesteremia. She presents to the office today for follow-up of her microscopic hematuria and overactive bladder with urinary hesitancy. In discussion with the patient today she reports compliance with terazosin and double voiding and feels this has been significantly helpful in her lower urinary tract symptoms. In office urinalysis results reviewed with the patient today. Microscopic hematuria. She discusses her longstanding history of bowel issues with irritable bowel syndrome and internal hemorrhoids. She otherwise denies any bothersome urinary issues or concerns. She denies urinary urgency, urinary frequency, incontinence, nocturia, hematuria, dysuria, foul smelling urine, changes to urinary stream, flank pain, fever, and or chills. She is happy with her current voiding parameters. Discussed at length potential causes of microscopic hematuria. Discussed further workup with CT urogram, cytology, and in office cystoscopy versus surveillance monitoring. Patient with a previous history of microscopic hematuria work[place] [address] 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 Microscopic Hematuria:? Microscopic hematuria was diagnosed during?routine UA - atypical cytology .? They are here for the?12 month evaluation.? Since the last visit the patient has?does not test positive for microscopic hematuria.? Relevant medical history for?tobacco use - age 18-25 ?family history of renal cancer.? Radiographic imaging:?CT IVP 06/17 [facility] - .? Radiology report?no genitourinary abnormality.? - 11/22 renal ultrasound left question caliectasis versus parapelvic cyst ? Other investigations?cytology, atypical.? Cystoscopy findings?07/18 smaller bladder.? PFSH Medical History Hemorrhoids with complication Rectal bleeding Osteopenia GERD (gastroesophageal reflux disease) Overweight (BMI 25.0-29.9) Hypertension Hypothyroid Hypercholesterolemia Surgical History History of total abdominal hysterectomy and bilateral salpingo-oophorectomy History of bilateral cataract extraction History of lumpectomy of left breast History of thyroidectomy History of tonsillectomy History of appendectomy Family History Father Smoker Lung cancer Mother Hypertension Diabetes Crohn disease Hypercholesterolemia Brother Hypertension Brother Diabetes Gastric cancer Paternal Grandfather Prostate cancer Social History Housing: House Alcohol intake: current Alcohol intake frequency: holidays/special occasions only Alcohol type: wine Comment: glass of wine 5 x a week Patient Tobacco Use Status: Former Tobacco user Tobacco use type: Cigarette Years Smoked: quit 23 years old e-Cigarette/Vaping Use: Never Used Second Hand Smoke Exposure: No service: No Current occupational status: retired Current occupational exposures/hazards: No Cognitive needs: No Hearing needs: Yes Vision needs: Yes Review of Systems Const Reports no additional complaints Eyes Reports no additional complaints ENT Reports no additional complaints Card Reports as per HPI Resp Reports no additional complaints GI Reports as per HPI Reports as per HPI Musc Reports no additional complaints Neuro Reports no additional complaints Psych Reports no additional complaints Endo Reports as per HPI Physical Exam Const General: cooperative, healthy appearing, comfortable, no acute distress, well developed, alert and awake Orientation/consciousness: patient oriented x3 Limitations: no limitations HEENT Head: Yes normal to inspection, Yes normocephalic and Yes atraumatic Ears: hearing grossly normal bilaterally Eyes General: appearance normal, both eyes and all related structures Neck Neck: Yes normal visual inspection and Yes trachea midline Chest Chest palpation & inspection: normal inspection of the chest Resp Effort & Inspection: normal respiratory effort and able to speak in complete sentences Cardio Rate: regular rate GI Inspection: Yes normal to inspection General: Yes no CVA tenderness Back/Spine/Pelvis Back: no CVA tenderness Skin General skin exam: no rashes or lesions noted Neuro General: patient oriented x3 Extrem General: Yes normal to inspection Psych Appearance: grossly normal and well kempt Mental Status: mental status grossly normal Speech and movement: Normal speech and movement present and Clear speech present Affect: normal affect Attitude: cooperative Thought process: Normal thought process present Thought content: Normal thought content present Insight: Fair insight present (Psych) Judgement: Fair judgement present (Psych) Office Procedures Post Void Residual Post Residual Void Post Void Residual (PVR): 0 [id number] Void Residual by ultrasound Results AMB Urinalysis, Automated UA Leukoctes 0 [place]/uL Last Edit by Hailey York on 06/21/23 13:20 UA Nitrite Negative Last Edit by Hailey York on 06/21/23 13:20 UA Urobilinogen 0.2 mg/dL Last Edit by Hailey York on 06/21/23 13:20 UA Protein 0 mg/dL Last Edit by Hailey York on 06/21/23 13:20 UA pH 6.0 Last Edit by Hailey York on 06/21/23 13:20 UA Blood 10 James/uL Last Edit by Hailey York on 06/21/23 13:20 UA Specific [place] 1.015 Last Edit by Hailey York on 06/21/23 13:20 UA Ketone Negative Last Edit by Hailey York on 06/21/23 13:20 UA Bilirubin 0 mg/dL Last Edit by Hailey Garggabby on 06/21/23 13:20 UA Glucose 0 mg/dL Last Edit by Hailey Garggabby on 06/21/23 13:20 Results Reviewed Results Reviewed: Laboratory Last Values Urine pH (Auto) 6.0 06/21/23 13:03 Specific [place] (Auto) 1.015 06/21/23 13:03 Urine Protein (Auto) 0 mg/dL 06/21/23 13:03 Glucose (UA)(Auto) 0 mg/dL 06/21/23 13:03 Urine Ketones (Auto) Negative 06/21/23 13:03 Urine Blood (Auto) 10 James/uL 06/21/23 13:03 Urine Nitrite (Auto) Negative 06/21/23 13:03 Urine Bilirubin (Auto) 0 mg/dL 06/21/23 13:03 Urine Urobilinogen (Auto) 0.2 mg/dL 06/21/23 13:03 Leukocyte Esterase (Auto) 0 [place]/uL 06/21/23 13:03 Assessment & Plan Assessment & Plan (1) Overactive bladder: Code(s): N32.81 - Overactive bladder (2) Microscopic hematuria: Code(s): R31.29 - Other microscopic hematuria Plan In office urinalysis results reviewed with the patient today; as noted above; will send for urine cytology. Discussed at length potential causes of microscopic hematuria; discussed surveillance monitoring verses further workup given previous workup in 2017; this was discussed at length; risks and benefits of these interventions were discussed. Patient reports be happy with current voiding parameters on terazosin 1 mg at bedtime She currently denies any bothersome urinary issues or concerns She is happy with her current voiding parameters Follow-up in 6 months; if not sooner with any issues, concerns, and or questions. Orders: Orders AMB Post Void Residual by ultrasound 06/21/23 N32.81 - Overactive bladder AMB Urinalysis Automated 06/21/23 Z13.9 - Encounter for screening, unspecified Urine Cytology 06/21/23 R31.9 - Hematuria, unspecified Medications: Refilled terazosin Taking every other day 1 mg PO BEDTIME 90 days 90 caps 3RF Patient Instructions: The patient had an opportunity to ask questions regarding the treatment plan. All questions were answered. Physical exam, labs, and imaging were discussed and reviewed in detail. As well as risks, benefits, and discussion of treatment choices. No major barriers to understanding were identified. The patient expressed understanding and agreement with the above treatment plan. The patient was made aware they should contact our office by phone for worsening of their current condition, the appearance of new symptoms, or with any questions or concerns. Compliance is encouraged with any medications and follow up testing that is ordered. It is a privilege to be allowed the opportunity to participate in? your urological care.? Again, if you have any questions or concerns If you have any questions or concerns please do not hesitate to contact me. The office is [phone]. This note is constructed using voice recognition software. While every effort has been made to ensure accuracy performance improvement director errors may have been included. Yours sincerely, TIMOTHY Henderson Coding Level of Care Code Est Pt Level 3 (50191) Diagnoses Overactive bladder N32.81 Microscopic hematuria R31.29 CPT Codes Post Residual Void - PVR CPT Code: 94701-Ybgf Void Residual by ultrasound ([id number])
== END 2023-06-21 13:33 | disposition home or self-care (01) ==
PROVIDERS: Visit Provider Nurse Practitioner Family
DX: N32.81 Overactive bladder (principal); R31.29 Other microscopic hematuria
CPT/HCPCS: 99213

== ENCOUNTER 2023-10-27 13:22 | Outpatient (AMB) | payer OTHER, SELFPAY ==
--- NOTE | 2023-10-27 13:24 | MHC.OFFVIS ---
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 Accompanied by: Self / Same As Patient Allergies amoxicillin [AMOXICILLIN] Allergy (Unknown, Verified 10/27/23 13:25) UNKNOWN penicillin V Allergy (Unknown, Verified 10/27/23 13:25) Unknown Sulfa (Sulfonamide Antibiotics) [SULFA (SULFONAMIDE ANTIBIOTICS)] Allergy (Unknown, Verified 10/27/23 13:25) UNKNOWN lisinopril Adverse Reaction (Unknown, Verified 10/27/23 13:25) cough Medication List - Last Reconciled 10/27/23 by Nilesh Schaefer MD cyclobenzaprine 10 mg PO TID fluticasone propionate 50 mcg/actuation (Flonase Allergy Relief) 2 sprays intranasal DAILY hydrochlorothiazide 12.5 mg PO DAILY 90 days hydrocortisone 2.5% (Proctosol HC) 1 appl [place] BID-QID PRN Lactobacillus rhamnosus GG (Culturelle) 1 cap PO DAILY levothyroxine 112 mcg PO DAILY losartan 100 mg PO DAILY multivit,Ca,brr-Y4-nhlvqg #181 1,000 unit tabs PO multivitamin 1 tab PO DAILY simvastatin 20 mg PO DAILY tacrolimus 0.1% 1 appl topical BID terazosin 1 mg PO BEDTIME 90 days triamcinolone acetonide 0.1% 1 appl topical BID HPI Comments Details: Roopa is a pleasant female. She is a patient Dr. Faust. She seen for the following urologic conditions - microscopic hematuria - overactive bladder Persistent microscopic hematuria Effective bladder emptying PVR 0 on terazosin Noticing weakness of stream Will adjust terazosin to daily Microscopic Hematuria:? Microscopic hematuria was diagnosed during?routine UA - atypical cytology .? They are here for the?12 month evaluation.? Since the last visit the patient has?does not test positive for microscopic hematuria.? Relevant medical history for?tobacco use - age [age] ?family history of renal cancer.? Radiographic imaging:?CT IVP 06/17 [facility] - .? Radiology report?no genitourinary abnormality.? - 11/22 renal ultrasound left question caliectasis versus parapelvic cyst ? Other investigations?cytology, atypical.? Cystoscopy findings?07/18 smaller bladder.? PFSH Medical History Hemorrhoids with complication Rectal bleeding Osteopenia GERD (gastroesophageal reflux disease) Overweight (BMI 25.0-29.9) Hypertension Hypothyroid Hypercholesterolemia Surgical History History of total abdominal hysterectomy and bilateral salpingo-oophorectomy History of bilateral cataract extraction History of lumpectomy of left breast History of thyroidectomy History of tonsillectomy History of appendectomy Family History Father Smoker Lung cancer Mother Hypertension Diabetes Crohn disease Hypercholesterolemia Brother Hypertension Brother Diabetes Gastric cancer Paternal Grandfather Prostate cancer Social History Housing: House Alcohol intake: current Alcohol intake frequency: holidays/special occasions only Alcohol type: wine Comment: glass of wine 5 x a week Patient Tobacco Use Status: Former Tobacco user Tobacco use type: Cigarette Years Smoked: quit 23 years old e-Cigarette/Vaping Use: Never Used Second Hand Smoke Exposure: No service: No Current occupational status: retired Current occupational exposures/hazards: No Cognitive needs: No Hearing needs: Yes Vision needs: Yes Review of Systems Const Denies chills and Denies fever(s) Card Reports no additional complaints and Denies syncope Resp Denies cough GI Denies abdominal pain and Denies heartburn Reports as per HPI and Denies change in libido Neuro Denies syncope Psych Denies change in libido Endo Denies change in libido Physical Exam Const General: cooperative, healthy appearing, comfortable and no acute distress Orientation/consciousness: patient oriented x3 HEENT Face and sinus: Yes normal facial exam Mouth: moist mucous membranes Neck Neck: Yes normal visual inspection, Yes full ROM and Yes trachea midline Chest Chest palpation & inspection: normal inspection of the chest Resp Effort & Inspection: normal respiratory effort, able to speak in complete sentences and no respiratory distress GI Inspection: Yes normal to inspection Back/Spine/Pelvis Cervical Spine: normal cervical lordosis Thoracic/Lumbar Spine: thoracic and lumbar spine normal to inspection Skin General skin exam: no rashes or lesions noted Neuro General: patient oriented x3, gait normal, tone normal and moves all extremities Extrem General: Yes normal to inspection and Yes capillary refill normal Office Procedures Post Void Residual Post Residual Void Post Void Residual (PVR): 0 02996-Lhsd Void Residual by ultrasound Results AMB Urinalysis, Automated UA Leukoctes 0 [place]/uL Last Edit by YAEL Dorantes on 10/27/23 13:40 UA Nitrite Negative Last Edit by YAEL Dorantes on 10/27/23 13:40 UA Urobilinogen 0.2 mg/dL Last Edit by YAEL Dorantes on 10/27/23 13:40 UA Protein 15 mg/dL Last Edit by Mann Candelario CCM on 10/27/23 13:40 UA pH 5.5 Last Edit by Mann Candelario CCM on 10/27/23 13:40 UA Blood 80 James/uL Last Edit by Mann Candelario CCM on 10/27/23 13:40 UA Specific [place] 1.020 Last Edit by Mann Candelario CCM on 10/27/23 13:40 UA Ketone Negative Last Edit by YAEL Dorantes on 10/27/23 13:40 UA Bilirubin 0 mg/dL Last Edit by Mann Candelario CCM on 10/27/23 13:40 UA Glucose 0 mg/dL Last Edit by Mann Candelario [facility] on 10/27/23 13:40 Results Reviewed Results Reviewed: Laboratory Last Values Urine pH (Auto) 5.5 10/27/23 13:40 Specific [place] (Auto) 1.020 10/27/23 13:40 Urine Protein (Auto) 15 mg/dL 10/27/23 13:40 Glucose (UA)(Auto) 0 mg/dL 10/27/23 13:40 Urine Ketones (Auto) Negative 10/27/23 13:40 Urine Blood (Auto) 80 James/uL 10/27/23 13:40 Urine Nitrite (Auto) Negative 10/27/23 13:40 Urine Bilirubin (Auto) 0 mg/dL 10/27/23 13:40 Urine Urobilinogen (Auto) 0.2 mg/dL 10/27/23 13:40 Leukocyte Esterase (Auto) 0 [place]/uL 10/27/23 13:40 Assessment & Plan Assessment & Plan (1) Overactive bladder: Code(s): N32.81 - Overactive bladder Category: Medical (2) Urinary hesitancy: Code(s): R39.11 - Hesitancy of micturition Category: Medical Plan Six month follow-up Orders: Orders AMB Urinalysis Automated Today Z13.9 - Encounter for screening, unspecified Medications: Changed From terazosin 1 mg orally Q other day; Taking every other day 90 days 90 caps 1RF N32.81 - Overactive bladder To terazosin 1 mg PO BEDTIME 90 days 90 caps 1RF N32.81 - Overactive bladder Patient Instructions: Imaging studies, laboratory and physical exam results were discussed and reviewed in detail. No major barriers to patient understanding were identified. An opportunity to ask questions regarding the treatment plan was provided. All questions were answered. The patient expressed understanding and agreement with the above treatment plan. The patient is aware they should contact our office by phone for worsening of their current condition or the appearance of new urologic symptoms. Compliance is encouraged with any medications and followup testing that is ordered. It is a privilege to participate in the urologic care of your patient. If you have any questions or concerns regarding treatment for the above conditions, or other urologic issues, please do not hesitate to contact me. The office telephone contact is [phone]. This note is constructed using voice recognition software. While every effort has been made to ensure accuracy intramural director errors may have been included. Yours sincerely, Dr Nilesh Schaefer MD, [facility] - Urology Providers of Expert, Compassionate Care for the Genitourinary System Coding Level of Care Code Est Pt Level 3 (46760) Diagnoses Overactive bladder N32.81 Urinary hesitancy R39.11 CPT Codes Post Residual Void - PVR CPT Code: 27322-Ynkd Void Residual by ultrasound ([id number])
== END 2023-10-27 14:01 | disposition home or self-care (01) ==
PROVIDERS: PCP Internal Medicine; Visit Provider Urology
DX: N32.81 Overactive bladder (principal); R39.11 Hesitancy of micturition; Z13.9 Encounter for screening, unspecified
CPT/HCPCS: 99213

== ENCOUNTER → 2023-10-27 13:22 | Outpatient (BNVA) | payer OTHER, SELFPAY | PROVIDERS: PCP Internal Medicine; Visit Provider Urology | DX: N32.81 Overactive bladder (principal); R39.11 Hesitancy of micturition; Z79.899 Other long term (current) drug therapy | CPT/HCPCS: 51798; 81003 ==

== ENCOUNTER 2023-12-27 09:51 | Outpatient (AMB) | payer OTHER, SELFPAY ==
[2023-12-27 09:54] VITALS: BP 138/65; PULSE 73; BMI 26.9
--- NOTE | 2023-12-27 09:54 | A.OFFVIS_ITS ---
Vital Signs 12/27/23 09:54 Height 5 ft 4 in Weight 157 lb BMI 26.9 BP 138/65 Blood Pressure Location Rt brachial Position Sitting Pulse 73 Intake Visit Reasons: hemorrhoid Intake Note: This patient presents for hemorrhoid. Pt c/o; reports rectal bleeding, pain, and constipation. 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 Accompanied by: Self / Same As Patient Allergies amoxicillin [AMOXICILLIN] Allergy (Unknown, Verified 12/27/23 10:03) UNKNOWN penicillin V Allergy (Unknown, Verified 12/27/23 10:03) Unknown Sulfa (Sulfonamide Antibiotics) [SULFA (SULFONAMIDE ANTIBIOTICS)] Allergy (U nknown, Verified 12/27/23 10:03) UNKNOWN lisinopril Adverse Reaction (Unknown, Verified 12/27/23 10:03) cough Medication List - Last Reconciled 12/27/23 by Calvin Villanueva MD cyclobenzaprine 10 mg PO TID fluticasone propionate 50 mcg/actuation (Flonase Allergy Relief) 2 sprays intranasal DAILY hydrochlorothiazide 12.5 mg PO DAILY 90 days hydrocortisone 2.5% (Proctosol HC) 1 appl [place] BID-QID PRN Lactobacillus rhamnosus GG (Culturelle) 1 cap PO DAILY levothyroxine 112 mcg PO DAILY losartan 100 mg PO DAILY multivit,Ca,qea-S2-opkmqn #181 1,000 unit tabs PO multivitamin 1 tab PO DAILY simvastatin 20 mg PO DAILY tacrolimus 0.1% 1 appl topical BID terazosin 1 mg PO BEDTIME 90 days triamcinolone acetonide 0.1% 1 appl topical BID HPI HPI hemorrhoid: Details: [age] year old female here for hemorrhoid issues. She says that she knows she has hemorrhoids. She would see blood on wiping periodically and she has had this for years. However, in 10/21/2023, she says that she had 2 large episodes of blood per rectum. She describes having mucus discharge from her anus all the time and says that she has to wear diapers now. She describes having a sense of fullness in her rectum and she feels that there is something walking her anus She does have a long history of IBS and has frequent diarrhea and constipation all the time. She denies any weight loss She says she had a colonoscopy [address] Calloway and this was except for hemorrhoids. [facility] Medical History Hemorrhoids with complication Rectal bleeding Osteopenia GERD (gastroesophageal reflux disease) Overweight (BMI 25.0-29.9) Hypertension Hypothyroid Hypercholesterolemia Surgical History History of total abdominal hysterectomy and bilateral salpingo-oophorectomy History of bilateral cataract extraction History of lumpectomy of left breast History of thyroidectomy History of tonsillectomy History of appendectomy Family History Father Smoker Lung cancer Mother Hypertension Diabetes Crohn disease Hypercholesterolemia Brother Hypertension Brother Diabetes Gastric cancer Paternal Grandfather Prostate cancer Social History Housing: House Alcohol intake: current Alcohol intake frequency: holidays/special occasions only Alcohol type: wine Comment: glass of wine 5 x a week Patient Tobacco Use Status: Former Tobacco user Tobacco use type: Cigarette Years Smoked: quit 23 years old e-Cigarette/Vaping Use: Never Used Second Hand Smoke Exposure: No service: No Current occupational status: retired Current occupational exposures/hazards: No Cognitive needs: No Hearing needs: Yes Vision needs: Yes Review of Systems Const Denies chills and Denies fever(s) Card Denies chest pain, Denies dyspnea and Denies dyspnea on exertion Resp Denies cough, Denies dyspnea and Denies dyspnea on exertion GI Reports hematochezia and Denies change in bowel habits Denies hematuria Musc Denies back pain and Denies limited range of motion Neuro Denies focal weakness and Denies convulsions Psych Denies depression and Denies mood swings Physical Exam Vital Signs: Last Vital Signs Pulse 73 12/27/23 09:54 BP 138/65 12/27/23 09:54 BMI result Body Mass Index 26.9 Const General: comfortable and no acute distress Orientation/consciousness: patient oriented x3 Neck Neck: Yes no lymphadenopathy Resp Auscultation: clear to auscultation bilaterally Cardio Rhythm: regular rhythm GI Other: Rectal exam shows external hemorrhoids Palpation (GI): Soft to palpation, nontender and no guarding Neuro General: patient oriented x3 Office Procedures Anoscopy She was in pradip-knife position. The anoscope was gently inserted. A full examination of the anal canal was done. She had some internal hemorrhoids and signs of mucosal prolapse. I do not see any lesions. There was no bleeding. There was no ulceration or fissure. Her sphincter tone is a little marginal. I do not feel any induration [id number] Assessment & Plan Assessment & Plan (1) Hemorrhoids: Code(s): K64.9 - Unspecified hemorrhoids Category: Medical Plan: She has known hemorrhoids. She describes increasing mucus drainage from her anus. She denies incontinence of stools. She also occasionally sees blood. I explained to her that anoscopic exam shows benign findings. She is worried about a ?tumor? in her rectum. She had her colonoscopy with Dr. Calloway about 2 years ago. I told her that because of her increasing mucosal discharge, it may be reasonable to do a flexible sigmoidoscopy to rule out a large adenoma in the rectum. I will let Dr. Calloway know about this She says she will call him as well for follow-up. Coding Level of Care Code Est Pt Level 3 (32659) Diagnoses Hemorrhoids K64.9 CPT Codes Details - CPT: 47003-Jrhwddga ([id number])
== END 2023-12-27 10:36 | disposition home or self-care (01) ==
PROVIDERS: PCP Internal Medicine; Visit Provider Surgery
DX: K64.9 Unspecified hemorrhoids (principal)
CPT/HCPCS: 46600; 99213

== ENCOUNTER → 2023-12-27 09:51 | Outpatient (BNVA) | payer OTHER, SELFPAY | PROVIDERS: PCP Internal Medicine; Visit Provider Surgery | DX: K64.8 Other hemorrhoids (principal) | CPT/HCPCS: 46600 ==

== ENCOUNTER 2024-03-18 12:19 | Outpatient (AMB) | payer OTHER, SELFPAY ==
--- NOTE | 2024-03-18 12:24 | MHC.PC.OV ---
Vital Signs 03/18/24 12:25 Height 5 ft 4 in Weight 159 lb BMI 27.3 BP 132/72 Blood Pressure Location Lt brachial Position Sitting Pulse 79 Pulse Source Pulse Oximeter Pulse Oximetry (%) 97 Oxygen Delivery Method Room Air Intake Visit Reasons: Annual Exam Allergies amoxicillin [AMOXICILLIN] Allergy (Unknown, Verified 03/18/24 12:26) UNKNOWN penicillin V Allergy (Unknown, Verified 03/18/24 12:26) Unknown Sulfa (Sulfonamide Antibiotics) [SULFA (SULFONAMIDE ANTIBIOTICS)] Allergy (Unknown, Verified 03/18/24 12:26) UNKNOWN lisinopril Adverse Reaction (Unknown, Verified 03/18/24 12:26) cough Medication List - Last Reconciled 03/18/24 by Jossy Richter MD cholecalciferol (vitamin D3) 50 mcg PO DAILY cyclobenzaprine 10 mg PO TID hydrochlorothiazide 12.5 mg PO DAILY 90 days hydrocortisone 2.5% (Proctosol HC) 1 appl [place] BID-QID PRN levothyroxine 112 mcg PO DAILY losartan 100 mg PO DAILY multivitamin 1 tab PO DAILY simvastatin 20 mg PO DAILY terazosin 1 mg PO BEDTIME 90 days triamcinolone acetonide 0.1% 1 appl topical BID Tobacco use date assessed: 05/26/23 Fall risk assessment: No Falls in past year Last assessed Fall Risk: 03/18/24 Dental Screening Dental Screen Date: 05/26/23 HPI Annual Exam HPI Details has hearing aid, fall 2 weeks ago in the [facility], no bruises , l neck painThe patient is a 74-year-old female presenting with concerns regarding her chronic weight gain and general wellness. Over the past few months, her weight has gradually increased, from 155 to 159 lbs, correlating with a decrease in episodes of diarrhea. She attributes this change partly to holiday indulgences. The patient?s history is pertinent for chronic diarrhea, which had previously caused notable weight fluctuations. The patient has known essential hypertension, currently managed with hydrochlorothiazide and losartan. She denies significant episodes of dizziness, but reports intermittent feeling of faintness upon getting up quickly. There have been no recent changes to her medication regime nor has she experienced any related adverse reactions recently. The patient has eczema which has recently resolved, and is no longer on tacrolimus. She also reports historical bouts of internal hemorrhoids, which occasionally cause bleeding typically upon straining during bowel movements. She does not experience chest pain regularly but relates rare occurrences to late meals. The patient reports sinus congestion upon waking, and intermittent use of antihistamines when symptomatic. Additionally, there is a history of cataracts without current noted visual impairments beyond what is corrected by glasses. In terms of memory concerns, the patient expresses some worry about forgetfulness, given her family history of dementia and Alzheimer?s disease. These concerns manifest as misplaced items and occasional word-finding difficulties. She also reports a fall approximately two weeks prior, sustaining no major injuries but experiencing muscle soreness. The fall underscores her concern over worsening balance, leading to increased precaution in daily activities. - Mammogram overdue; last conducted over a year ago, reminding the patient to schedule an appointment. - Recommended bone density and colonoscopy are up-to-date. - Cataracts noted, corrective measures are in place with vision aids. - A tetanus booster was administered during this visit. - Recent influenza and COVID-19 vaccinations are up-to-date. - Deferred RSV vaccine - low immediate necessity. - Discussing regular exercise to improve balance and health outcomes. - Consumes wine approximately four times a week with meals. - Previously smoked but quit several years ago. - Reports no current regular exercise regimen. - Concerns about memory related to a family history of dementia. - General: Denies fever. - Cardiovascular: Denies frequent chest pain; denies palpitations. - Respiratory: Reports sinus congestion, especially in mornings. - Gastrointestinal: Reports intermittent internal hemorrhoid-related bleeding during bowel movements. - Musculoskeletal: Reports recent fall leading to muscle soreness; intermittent neck and muscular pain. - Neurological: Reports forgetfulness and concern for memory. - Dermatological: Eczema resolved. - EENT: Reports cataracts; occasionally bothered by allergies affecting eyes. - Psychiatric: Reports concerns about memory due to family history of dementia. [facility] Medical History Hemorrhoids with complication Rectal bleeding Osteopenia GERD (gastroesophageal reflux disease) Overweight (BMI 25.0-29.9) Hypertension Hypothyroid Hypercholesterolemia Surgical History History of total abdominal hysterectomy and bilateral salpingo-oophorectomy History of bilateral cataract extraction History of lumpectomy of left breast History of thyroidectomy History of tonsillectomy History of appendectomy Family History Father Smoker Lung cancer Mother Hypertension Diabetes Crohn disease Hypercholesterolemia Brother Hypertension Brother Diabetes Gastric cancer Paternal Grandfather Prostate cancer Social History Housing: House Alcohol intake: current Alcohol intake frequency: holidays/special occasions only Alcohol type: wine Comment: glass of wine 5 x a week Patient Tobacco Use Status: Former Tobacco user Tobacco use type: Cigarette Years Smoked: quit 23 years old e-Cigarette/Vaping Use: Never Used Second Hand Smoke Exposure: No service: No Current occupational status: retired Current occupational exposures/hazards: No Cognitive needs: No Hearing needs: Yes Vision needs: Yes Questionnaire PHQ-9 Over the last 2 weeks, how often have you been bothered by any of the following problems? 1. Little interest or pleasure in doing things: not at all 3. Trouble falling or staying asleep, or sleeping too much: several days 5. Poor appetite or overeating: not at all 6. Feeling bad about yourself - or that you are a failure or have let yourself or your family down: not at all 7. Trouble concentrating on things, such as reading the newspaper or watching television: not at all 8. Moving or speaking so slowly that other people could have noticed. Or the opposite - being so fidgety or restless that you have been moving around a lot more than usual: not at all 9. Thoughts that you would be better off or of hurting yourself in some way: not at all Source: Developed by Drs. Francis Sánchez, Wendy Ellison, Tab Rosa and colleagues, with an educational kentrell from [employer]. Thrive Questionnaire Date Thrive assessed: 05/26/23 I am a: Patient What is your living situation today?: I have a steady place to live Within the past 12 months, did the food you bought not last and you didn't have the money to get more?: Often true Within the past 12 months, did you worry whether your food would run out before you got money to buy more?: Never true Do you have trouble paying for medicines?: No Do you have trouble getting transportation to medical appointments?: No Do you have trouble paying your heating and electricity bill?: No Do you have trouble taking care of your child, family member or friend?: No Do you have trouble with day-to-day activities such as bathing, preparing meals, shopping, managing finances, etc.?: No Are you currently unemployed and looking for a job?: No Are you interested in more education?: No Please select the resources that you would like help with: None Currently or been in a relationship where the following occur: No concerns reported THRIVE Score: 1 AUDIT C Alcohol Use Questionnaire (AUDIT-C) 1. How often do you have a drink containing alcohol?: 2-3 times a week 2. How many drinks containing alcohol do you have on a typical day when you are drinking?: 1 or 2 3. How often do you have six or more drinks on one occasion?: Never Total Score: 3 RALF-7 AMB Questionnaire RALF-7 Date RALF - 7 assessed: 05/26/23 Feeling nervous, anxious, or on edge: 1 = Several days Not being able to stop or control worryin = Several days Worrying too much about different things: 1 = Several days Trouble relaxin = Not at all Being so restless that it is hard to sit still: 0 = Not at all Becoming easily annoyed or irritable: 1 = Several days Feeling afraid as if something awful might happen: 1 = Several days Total RALF-7 score (0-4 normal; 5-9 mild; 10-14 moderate; 15-21 severe): 5 Source: Developed by Drs. Francis Sánchez, Wendy Ellison, Tab Rosa and colleagues, with an educational kentrell from [employer]. Review of Systems Const Denies poor appetite and Denies weakness Eyes Denies no additional complaints ENT Reports Normal hearing present, Denies dizziness, Denies nasal congestion, Denies tinnitus and Denies sore throat Card Denies chest pain, Denies syncope, Denies rapid heart rate and Denies dyspnea Resp Denies cough and Denies dyspnea GI Denies change in stool character, Reports constipation, Denies diarrhea, Denies nausea and Denies vomiting Denies urinary frequency, Denies difficulty voiding and Denies dysuria Neuro Reports Normal hearing present, Denies confusion, Denies dizziness, Denies syncope and Denies weakness Psych Denies confusion Physical exam (Primary Care) Vital Signs: Last Vital Signs Pulse 79 03/18/24 12:25 BP 132/72 03/18/24 12:25 Pulse Ox 97 03/18/24 12:25 Oxygen Delivery Method Room Air 03/18/24 12:25 BMI result Body Mass Index 27.3 Tobacco/Smoking Status: Tobacco use Status Tobacco use date assessed 05/26/23 03/18/24 12:29 Patient Tobacco Use Status Former Tobacco user 03/18/24 12:29 Tobacco use type Cigarette 03/18/24 12:29 e-Cigarette/Vaping Use Never Used 03/18/24 12:29 Thrive Assessment: Date of Thrive Assessment Date Thrive assessed 05/26/23 03/18/24 12:29 Currently or been in a relationship where the following occur: No concerns reported Const General: No confusion Orientation/consciousness: No confusion HENMT Other: impacted cerumen r ear Head: Yes normocephalic Ears: external ears normal Face and sinus: Yes normal facial exam Mouth: moist mucous membranes Throat: Yes tonsils normal Eyes Conjunctivae: conjunctivae normal Pupils: Equal, round and reactive pupils present and Pupil accommodation reflex normal Direct Ophthalmoscopy: normal light reflex Neck Neck: No lymphadenopathy Thyroid: Thyroid normal Chest Chest palpation & inspection: normal inspection of the chest Resp Effort & Inspection: normal respiratory effort and no audible wheezes Auscultation: clear to auscultation bilaterally, no crackles, no wheezes and lung sounds not diminished Cardio Rate: regular rate Rhythm: regular rhythm Peripheral pulses: radial pulses present and dorsalis pedis present GI Palpation (GI): no masses Auscultation: normal bowel sounds and normoactive bowel sounds Rectal Exam - Female: deferred Skin General skin exam: no rashes or lesions noted Rashes: no rashes Neuro General: No confusion Cranial nerves: Yes Equal, round and reactive pupils present and Yes Normal hearing present Cognition (Neuro): normal cognition Gait exam (Neuro): Normal gait present Motor exam (neuro): 5/5 motor strength present throughout Deep tendon reflexes (DTR's): Right brachioradialis reflex intensity grade: 2+, Left brachioradialis reflex intensity grade: 2+, Right patellar reflex intensity grade: 2+ and Left patellar reflex intensity grade: 2+ Extrem General: No edema Coding Level of Care Code Est Pt Prev Care >65y(49439) Diagnoses Annual physical exam Z00.00 Essential hypertension I10 Hypertension type: essential hypertension Acquired hypothyroidism E03.9 Hypothyroidism type: acquired Hypercholesterolemia E78.00 Gastroesophageal reflux disease without esophagitis K21.9 Esophagitis presence: without esophagitis Overweight (BMI 25.0-29.9) E66.3 Overactive bladder N32.81 Internal hemorrhoids K64.8 Assessment & Plan Assessment & Plan (1) Annual physical exam: Code(s): Z00.00 - Encounter for general adult medical examination without abnormal findings Category: Medical Plan: Patient is advised to eat healthy, keep well hydrated, keep active and have adequate sleep. (2) Hypertension: Code(s): I10 - Essential (primary) hypertension Category: Medical Qualifiers: Hypertension type: essential hypertension Qualified Code(s): I10 - Essential (primary) hypertension Plan: Continue with blood pressure medication. Decrease salt intake and exercise on losartan 100 mg once a day (3) Hypothyroid: Comment: Dr. Smith Code(s): E03.9 - Hypothyroidism, unspecified Category: Medical Qualifiers: Hypothyroidism type: acquired Qualified Code(s): E03.9 - Hypothyroidism, unspecified Plan: Continue with thyroid medication blood work requested (4) Hypercholesterolemia: Code(s): E78.00 - Pure hypercholesterolemia, unspecified Category: Medical Plan: Avoid fried foods, chicken skin, eggs, butter margarine, pastries and meat. Be it pork or beef they have a lot of cholesterol on simvastatin 20 mg once a day (5) GERD (gastroesophageal reflux disease): Code(s): K21.9 - Gastro-esophageal reflux disease without esophagitis Category: Medical Qualifiers: Esophagitis presence: without esophagitis Qualified Code(s): K21.9 - Gastro-esophageal reflux disease without esophagitis Plan: Avoid the foods that causes that usually spicy foods, tomato products, juices, coffee, soda and foods that your sensitive to. After eating do not lie down, allow 3-4 hours before in lie down. And keep the head of bed above 30 degrees to avoid the acid from going up. (6) Overweight (BMI 25.0-29.9): Code(s): E66.3 - Overweight Category: Medical Plan: Diet and exercise (7) Overactive bladder: Code(s): N32.81 - Overactive bladder Category: Medical Plan: Patient follows up with urology on terazosin (8) Internal hemorrhoids: Code(s): K64.8 - Other hemorrhoids Category: Medical Plan: Patient has seen the surgeon and had anoscopy done showing internal hemorrhoids and was advised sigmoidoscopy. Plan - Continue current antihypertensive regime with hydrochlorothiazide and losartan. - Monitor weight, recommend dietary mindfulness, and encourage consistent use of Flonase for sinus congestion symptoms. - Hemorrhoids: Monitor for symptom exacerbation, continue using topical treatment as needed. - Discussed exercises to improve balance and potentially decrease fall risk; will assess necessity of physical therapy next visit. - Reinforce consistent use of vision and hearing aids; monitor any progression of cataracts or need for adjustment. - Prescribed Vitamin D supplementation to address deficiency. - Conduct routine follow-up blood work to monitor ongoing health status. - Continue monitoring memory; patient reassured, encouraged cognitive engagement activities. During the consultation, we reviewed the patient?s comprehensive health status and addressed chronic issues such as hypertension, weight gain due to less frequent diarrhea, and memory concerns. Discussed memory concerns in the context of a family history of dementia, recommending cognitive exercises as a preventative measure. We discussed the necessity of consistent mammographic screenings and balancing of vaccinations without immediate requirement for RSV vaccination. Patient was receptive to suggestions regarding diet moderation and increased physical activity, especially for improving balance to prevent future falls. We agreed on continued surveillance of dermatological conditions, ophthalmic health, and caution towards further weight fluctuations. A tetanus booster was administered with patient's consent, and she was counseled on monitoring sinus symptoms and encouraged the use of Flonase as needed. - Schedule overdue mammogram test. - Maintain blood pressure medication regime and record daily readings if possible. - Monitor weight and keep dietary intake log; avoid large or late meals. - Use Flonase nasal spray consistently for sinus congestion symptoms. - Maintain physical activities, focus on balance and safe maneuvering around the house. - Use [id number] earwax softeners if needed. - Report any considerable memory decline or imbalance issues for further assessment. - Engage in regular cognitive exercises such as puzzles or word games. - Plan to start RSV vaccine phased after logistics are favorable. - Compliance with up-to-date vaccinations needed - pneumococcal, tetanus, and influenza reviewed. Orders: Orders Free T4 (Free Thyroxine) 1 Month E03.9 - Hypothyroidism, unspecified Thyroid Stimulating Hormone 1 Month E03.9 - Hypothyroidism, unspecified Vitamin D 25-OH Total 1 Month E03.9 - Hypothyroidism, unspecified Complete Blood Count Auto Diff 1 Month E03.9 - Hypothyroidism, unspecified Comprehensive Met. Panel 1 Month E03.9 - Hypothyroidism, unspecified Vitamin B12 and Folate 1 Month E03.9 - Hypothyroidism, unspecified Lipid Panel 1 Month E03.9 - Hypothyroidism, unspecified, E78.00 - Pure hypercholesterolemia, unspecified Medications: Refilled cyclobenzaprine 10 mg PO TID 60 tabs 0RF E78.00 - Pure hypercholesterolemia, unspecified
[2024-03-18 12:25] VITALS: BP 132/72; PULSE 79; O2SAT 97; BMI 27.3
== END 2024-03-18 13:17 | disposition home or self-care (01) ==
PROVIDERS: PCP Internal Medicine; Visit Provider Internal Medicine
DX: Z00.00 Encounter for general adult medical examination without abnormal findings (principal); I10 Essential (primary) hypertension; E03.9 Hypothyroidism, unspecified; E78.00 Pure hypercholesterolemia, unspecified; K21.9 Gastro-esophageal reflux disease without esophagitis; E66.3 Overweight; N32.81 Overactive bladder; K64.8 Other hemorrhoids; Z23 Encounter for immunization

== ENCOUNTER → 2024-03-18 12:19 | Outpatient (BNVA) | payer OTHER, SELFPAY | PROVIDERS: PCP Internal Medicine; Visit Provider Internal Medicine | DX: Z00.00 Encounter for general adult medical examination without abnormal findings (principal); Z23 Encounter for immunization; I10 Essential (primary) hypertension; E03.9 Hypothyroidism, unspecified; E78.00 Pure hypercholesterolemia, unspecified; K21.9 Gastro-esophageal reflux disease without esophagitis; E66.3 Overweight; N32.81 Overactive bladder; K64.8 Other hemorrhoids | CPT/HCPCS: 90471; 90714 ==

== ENCOUNTER 2024-04-11 10:47 | Outpatient (AMB) | payer OTHER, SELFPAY ==
--- NOTE | 2024-04-11 10:51 | A.OFFVIS_ITS ---
Intake Visit Reasons: 6M UA/PVR Intake Note: Patient is present for6M UA/PVR Urology Medication:TERAZOSIN Antibiotic Allergy:AMOXICILLIN,PENICILLINV,SULFA Blood Thinner:NONE Last PVR:0ML'S Todays PVR:0ML'S Chore Worker Required: No Allergies amoxicillin [AMOXICILLIN] Allergy (Unknown, Verified 04/11/24 10:53) UNKNOWN penicillin V Allergy (Unknown, Verified 04/11/24 10:53) Unknown Sulfa (Sulfonamide Antibiotics) [SULFA (SULFONAMIDE ANTIBIOTICS)] Allergy (Unknown, Verified 04/11/24 10:53) UNKNOWN lisinopril Adverse Reaction (Unknown, Verified 04/11/24 10:53) cough HPI Comments Details: Roopa is a pleasant female. She is a patient Dr. Faust. She seen for the following urologic conditions - microscopic hematuria - overactive bladder Persistent microscopic hematuria Effective bladder emptying PVR 0 on terazosin On terazosin for bladder emptying 1 mg Yearly follow-up Microscopic Hematuria:? Microscopic hematuria was diagnosed during?routine UA - atypical cytology .? They are here for the?12 month evaluation.? Since the last visit the patient has?does not test positive for microscopic hematuria.? Relevant medical history for?tobacco use - age 18-25 ?family history of renal cancer.? Radiographic imaging:?CT IVP 06/17 [facility] - .? Radiology report?no genitourinary abnormality.? - 11/22 renal ultrasound left question caliectasis versus parapelvic cyst ? Other investigations?cytology, atypical.? Cystoscopy findings?07/18 smaller bladder.? PFSH Medical History Hemorrhoids with complication Rectal bleeding Osteopenia GERD (gastroesophageal reflux disease) Overweight (BMI 25.0-29.9) Hypertension Hypothyroid Hypercholesterolemia Surgical History History of total abdominal hysterectomy and bilateral salpingo-oophorectomy History of bilateral cataract extraction History of lumpectomy of left breast History of thyroidectomy History of tonsillectomy History of appendectomy Family History Father Smoker Lung cancer Mother Hypertension Diabetes Crohn disease Hypercholesterolemia Brother Hypertension Brother Diabetes Gastric cancer Paternal Grandfather Prostate cancer Social History Housing: House Alcohol intake: current Alcohol intake frequency: holidays/special occasions only Alcohol type: wine Comment: glass of wine 5 x a week Patient Tobacco Use Status: Former Tobacco user Tobacco use type: Cigarette Years Smoked: quit 23 years old e-Cigarette/Vaping Use: Never Used Second Hand Smoke Exposure: No service: No Current occupational status: retired Current occupational exposures/hazards: No Cognitive needs: No Hearing needs: Yes Vision needs: Yes Review of Systems Const Denies chills and Denies fever(s) Card Reports no additional complaints and Denies syncope Resp Denies cough GI Denies abdominal pain and Denies heartburn Reports as per HPI and Denies change in libido Neuro Denies syncope Psych Denies change in libido Endo Denies change in libido Physical Exam Const General: cooperative, healthy appearing, comfortable and no acute distress Orientation/consciousness: patient oriented x3 HEENT Face and sinus: Yes normal facial exam Mouth: moist mucous membranes Neck Neck: Yes normal visual inspection, Yes full ROM and Yes trachea midline Chest Chest palpation & inspection: normal inspection of the chest Resp Effort & Inspection: normal respiratory effort, able to speak in complete sentences and no respiratory distress GI Inspection: Yes normal to inspection Back/Spine/Pelvis Cervical Spine: normal cervical lordosis Thoracic/Lumbar Spine: thoracic and lumbar spine normal to inspection Skin General skin exam: no rashes or lesions noted Neuro General: patient oriented x3, gait normal, tone normal and moves all extremities Extrem General: Yes normal to inspection and Yes capillary refill normal Office Procedures Post Void Residual Post Residual Void Post Void Residual (PVR): 0 [id number] Void Residual by ultrasound Results AMB Urinalysis, Automated UA Leukoctes 0 Cayet[place]/uL Last Edit by YAEL Dorantes on 04/11/24 11:20 UA Nitrite Negative Last Edit by YAEL Dorantes on 04/11/24 11:20 UA Urobilinogen 0.2 mg/dL Last Edit by YAEL Dorantes on 04/11/24 11:2 0 UA Protein 30 mg/dL Last Edit by YAEL Dorantes on 04/11/24 11:20 UA pH 6.0 Last Edit by YAEL Dorantes on 04/11/24 11:20 UA Blood 80 James/uL Last Edit by YAEL Dorantes on 04/11/24 11:20 UA Specific [place] 1.020 Last Edit by YAEL Dorantes on 04/11/24 11: 20 UA Ketone Negative Last Edit by YAEL Dorantes on 04/11/24 11:20 UA Bilirubin 0 mg/dL Last Edit by YAEL Dorantes on 04/11/24 11:20 UA Glucose 0 mg/dL Last Edit by YAEL Dorantes on 04/11/24 11:20 Results Reviewed Results Reviewed: Laboratory Last Values Urine pH (Auto) 6.0 04/11/24 11:20 Specific [place] (Auto) 1.020 04/11/24 11:20 Urine Protein (Auto) 30 mg/dL 04/11/24 11:20 Glucose (UA)(Auto) 0 mg/dL 04/11/24 11:20 Urine Ketones (Auto) Negative 04/11/24 11:20 Urine Blood (Auto) 80 James/uL 04/11/24 11:20 Urine Nitrite (Auto) Negative 04/11/24 11:20 Urine Bilirubin (Auto) 0 mg/dL 04/11/24 11:20 Urine Urobilinogen (Auto) 0.2 mg/dL 04/11/24 11:20 Leukocyte Esterase (Auto) 0 [place]/uL 04/11/24 11:20 Assessment & Plan Assessment & Plan (1) Microscopic hematuria: Code(s): R31.29 - Other microscopic hematuria Category: Medical (2) Overactive bladder: Code(s): N32.81 - Overactive bladder Category: Medical (3) Urinary hesitancy: Code(s): R39.11 - Hesitancy of micturition Category: Medical Plan Continue terazosin 12 month follow-up Orders: Orders AMB Urinalysis Automated Today Z13.9 - Encounter for screening, unspecified Medications: Refilled terazosin 1 mg PO BEDTIME 90 caps 3RF 90 days N32.81 - Overactive bladder Patient Instructions: Imaging studies, laboratory and physical exam results were discussed and reviewed in detail. No major barriers to patient understanding were identified. An opportunity to ask questions regarding the treatment plan was provided. All questions were answered. The patient expressed understanding and agreement with the above treatment plan. The patient is aware they should contact our office by phone for worsening of their current condition or the appearance of new urologic symptoms. Compliance is encouraged with any medications and followup testing that is ordered. It is a privilege to participate in the urologic care of your patient. If you have any questions or concerns regarding treatment for the above conditions, or other urologic issues, please do not hesitate to contact me. The office telephone contact is [phone]. This note is constructed using voice recognition software. While every effort has been made to ensure accuracy regional facilities manager errors may have been included. Yours sincerely, Dr Nilesh Schaefer MD, [facility] - Urology Providers of Expert, Compassionate Care for the Genitourinary System Coding Level of Care Code Est Pt Level 3 (35405) Diagnoses Microscopic hematuria R31.29 Overactive bladder N32.81 Urinary hesitancy R39.11 CPT Codes Post Residual Void - PVR CPT Code: 12863-Kctd Void Residual by ultrasound ([id number])
== END 2024-04-11 11:36 | disposition home or self-care (01) ==
PROVIDERS: PCP Internal Medicine; Visit Provider Urology
DX: R31.29 Other microscopic hematuria (principal); N32.81 Overactive bladder; R39.11 Hesitancy of micturition; Z13.9 Encounter for screening, unspecified
CPT/HCPCS: 99213

== ENCOUNTER → 2024-04-11 10:47 | Outpatient (BNVA) | payer OTHER, SELFPAY | PROVIDERS: PCP Internal Medicine; Visit Provider Urology | DX: R31.29 Other microscopic hematuria (principal); N32.81 Overactive bladder; R39.11 Hesitancy of micturition; Z79.899 Other long term (current) drug therapy | CPT/HCPCS: 51798; 81003 ==

== ENCOUNTER 2024-06-18 09:57 | Outpatient (REF) | payer OTHER, SELFPAY ==
[2024-06-18 13:02] LABS: MANUAL DIFF FLAG NO
[2024-06-18 13:19] LABS: Basophils Absolute Auto 0.1 X10*3/uL (0.0-0.2); Basophils Percent Auto 1.2 % (0-2); Eosinophils Absolute Auto 0.3 X10*3/uL (0.0-0.4); Eosinophils Percent Auto 5.8 % (0-4); Hematocrit 33.1 % (37.0-47.0); Hemoglobin 11.3 g/dl (12.0-16.0); Imm Gran Abs Auto 0.01 X10*3/uL (0.00-0.03); Imm Gran Pct Auto 0.2 % (0.0-0.4); Lymphocytes Absolute Auto 2.2 X10*3/uL (1.2-4.9); Lymphocytes Percent Auto 43.2 % (20-40); Mean Corpuscular HGB Conc 34.1 g/dl (31.0-35.0); Mean Corpuscular Hemoglobin 30.5 pg (27.0-33.0); Mean Corpuscular Volume 89.2 fL (80.0-98.0); Mean Platelet Volume 10.1 fL (9.4-12.3); Monocytes Absolute Auto 0.6 X10*3/uL (0.1-1.2); Monocytes Percent Auto 12.3 % (2-11); Neutrophils Absolute Auto 1.9 x10*3/uL (2.0-8.3); Neutrophils Percent Auto 37.3 % (45-73); Platelet Count 224 X10*3/uL (160-400); Red Blood Count 3.71 X10*6/uL (4.20-5.50); Red Cell Distribution Width 13.2 % (11.0-16.0); White Blood Count 5.1 X10*3/uL (4.8-10.8)
[2024-06-18 13:59] LABS: Alanine Aminotransferase 27 U/L (0-31); Alkaline Phosphatase 72 U/L (39-117); Anion Gap 12 (12-20); Aspartate Amino Transferase 28 U/L (5-31); Bilirubin Total 0.8 mg/dL (0.0-1.0); Blood Urea Nitrogen 20 mg/dL (9-16); Calcium 9.8 mg/dL (8.4-10.2); Carbon Dioxide 27 mmol/L (22-29); Chloride 107 mmol/L (96-108); Cholesterol 167 mg/dL (<200); Estimated Glomerular Filt Rate > 60; Free T4 (Free Thyroxine) 1.54 ng/dL (0.71-1.85); Glucose Random 94 mg/dL (60-115); HDL Cholesterol 57 mg/dL (>40); LDL Cholesterol Calculated 87 mg/dL (<100); Sodium 142 mmol/L (135-145); Thyroid Stimulating Hormone 0.37 uIU/mL (0.32-4.0); Triglycerides 117 mg/dL (<150); Vitamin D 25-OH Total 75.9 ng/mL (>30)
[2024-06-18 14:02] LABS: Folate 14.7 ng/mL (> or = 4.0); Vitamin B12 781 pg/mL (200-900)
== END 2024-06-18 09:58 | disposition home or self-care (01) ==
LOC: HO.HMGCLDS 09:57
PROVIDERS: PCP Internal Medicine; Visit Provider Internal Medicine
DX: E03.9 Hypothyroidism, unspecified (principal); E78.00 Pure hypercholesterolemia, unspecified
CPT/HCPCS: 36415; 80053; 80061; 82306; 82607; 82746; 84439; 84443; 85025

== ENCOUNTER 2024-06-24 11:01 | Outpatient (AMB) | payer OTHER, SELFPAY ==
[2024-06-24 11:07] VITALS: BP 134/68; PULSE 86; TEMP 36.2; O2SAT 97; BMI 26.9
--- NOTE | 2024-06-24 11:07 | A.OFFPC_ITS ---
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 Accompanied by: Self / Same As Patient Allergies amoxicillin [AMOXICILLIN] Allergy (Unknown, Verified 06/24/24 11:15) UNKNOWN penicillin V Allergy (Unknown, Verified 06/24/24 11:15) Unknown Sulfa (Sulfonamide Antibiotics) [SULFA (SULFONAMIDE ANTIBIOTICS)] Allergy (Unknown, Verified 06/24/24 11:15) UNKNOWN lisinopril Adverse Reaction (Unknown, Verified 06/24/24 11:15) cough Tobacco use date assessed: 06/24/24 Fall risk assessment: No Falls in past year Last assessed Fall Risk: 06/24/24 Dental Screening Dental Screen Date: 06/24/24 Did you have a dental visit in the last 12 months?: No Did you have a dental problem in the last 6 months where you did not have access to dental care?: No Was dental information given to patient?: Patient has dentist HPI 3 month f/u HPI Details was sick 5 weeks ago, not covid, had fevers and chills. , mild cough, no more fevers,, no sore throat, , had sob but better PFSH Medical History Hemorrhoids with complication Rectal bleeding Osteopenia GERD (gastroesophageal reflux disease) Overweight (BMI 25.0-29.9) Hypertension Hypothyroid Hypercholesterolemia Surgical History History of total abdominal hysterectomy and bilateral salpingo-oophorectomy History of bilateral cataract extraction History of lumpectomy of left breast History of thyroidectomy History of tonsillectomy History of appendectomy Family History Father Smoker Lung cancer Mother Hypertension Diabetes Crohn disease Hypercholesterolemia Brother Hypertension Brother Diabetes Gastric cancer Paternal Grandfather Prostate cancer Social History Housing: House Alcohol intake: current Alcohol intake frequency: holidays/special occasions only Alcohol type: wine Comment: glass of wine 5 x a week Patient Tobacco Use Status: Former Tobacco user Tobacco use type: Cigarette Years Smoked: quit 23 years old e-Cigarette/Vaping Use: Never Used Second Hand Smoke Exposure: No service: No Current occupational status: retired Current occupational exposures/hazards: No Cognitive needs: No Hearing needs: Yes Vision needs: Yes Questionnaire PHQ-9 Over the last 2 weeks, how often have you been bothered by any of the following problems? 1. Little interest or pleasure in doing things: not at all 2. Feeling down, depressed, or hopeless: not at all 3. Trouble falling or staying asleep, or sleeping too much: not at all 4. Feeling tired or having little energy: not at all 5. Poor appetite or overeating: not at all 6. Feeling bad about yourself - or that you are a failure or have let yourself or your family down: not at all 7. Trouble concentrating on things, such as reading the newspaper or watching television: not at all 8. Moving or speaking so slowly that other people could have noticed. Or the opposite - being so fidgety or restless that you have been moving around a lot more than usual: not at all 9. Thoughts that you would be better off or of hurting yourself in some way: not at all Total score: 0 Depression Screening Interpretation: Negative Depression Screening Done: Yes [id number] - PHQ-9 Billing: Yes Source: Developed by Drs. Francis Sánchez, Wendy Ellison, Tab Rosa and colleagues, with an educational kentrell from [employer]. Thrive Questionnaire Date Thrive assessed: 06/24/24 I am a: Patient What is your living situation today?: I have a steady place to live Within the past 12 months, did the food you bought not last and you didn't have the money to get more?: Never true Within the past 12 months, did you worry whether your food would run out before you got money to buy more?: Never true Do you have trouble paying for medicines?: No Do you have trouble getting transportation to medical appointments?: No Do you have trouble paying your heating and electricity bill?: No Do you have trouble taking care of your child, family member or friend?: No Do you have trouble with day-to-day activities such as bathing, preparing meals, shopping, managing finances, etc.?: No Are you currently unemployed and looking for a job?: No Are you interested in more education?: No Please select the resources that you would like help with: None Currently or been in a relationship where the following occur: No concerns reported THRIVE Score: 0 AUDIT C Alcohol Use Questionnaire (AUDIT-C) 1. How often do you have a drink containing alcohol?: 2-3 times a week 2. How many drinks containing alcohol do you have on a typical day when you are drinking?: 1 or 2 3. How often do you have six or more drinks on one occasion?: Never Total Score: 3 RALF-7 AMB Questionnaire RALF-7 Date RALF - 7 assessed: 06/24/24 Feeling nervous, anxious, or on edge: 0 = Not at all Not being able to stop or control worryin = Not at all Worrying too much about different things: 0 = Not at all Trouble relaxin = Not at all Being so restless that it is hard to sit still: 0 = Not at all Becoming easily annoyed or irritable: 0 = Not at all Feeling afraid as if something awful might happen: 0 = Not at all Total RALF-7 score (0-4 normal; 5-9 mild; 10-14 moderate; 15-21 severe): 0 Source: Developed by Drs. Francis Sánchez, Wendy Ellison, Tab Rosa and colleagues, with an educational kentrell from [employer]. RALF-7 Assessment Billing RALF-7 Assessment Tool: RALF-7 Assessment 16467 Physical exam (Primary Care) Vital Signs: Last Vital Signs Temp 97.1 F 06/24/24 11:07 Pulse 86 06/24/24 11:07 BP 134/68 06/24/24 11:07 Pulse Ox 97 06/24/24 11:07 Oxygen Delivery Method Room Air 06/24/24 11:07 BMI result Body Mass Index 26.9 Tobacco/Smoking Status: Tobacco use Status Tobacco use date assessed 06/24/24 06/24/24 11:19 Patient Tobacco Use Status Former Tobacco user 06/24/24 11:07 Tobacco use type Cigarette 06/24/24 11:07 e-Cigarette/Vaping Use Never Used 06/24/24 11:07 PHQ-9: PHQ-9 Score PHQ-9: Total score 0 06/24/24 11:38 Depression Screening Interpretation: Negative Thrive Assessment: Date of Thrive Assessment Date Thrive assessed 06/24/24 06/24/24 11:07 Currently or been in a relationship where the following occur: No concerns reported Const General: alert; No acute distress Eyes Conjunctivae: conjunctivae normal Resp Auscultation: clear to auscultation bilaterally Cardio Rate: regular rate Rhythm: regular rhythm GI Inspection: Yes normal to inspection Extrem General: Yes normal to inspection and No edema Coding Level of Care Code Est Pt Level 4 (67641) Complex EM visit Add On G2211 Diagnoses Microscopic hematuria R31.29 Hypercholesterolemia E78.00 Acquired hypothyroidism E03.9 Hypothyroidism type: acquired Essential hypertension I10 Hypertension type: essential hypertension Overweight (BMI 25.0-29.9) E66.3 Gastroesophageal reflux disease without esophagitis K21.9 Esophagitis presence: without esophagitis Osteopenia M85.80 Breast cancer screening by mammogram Z12.31 Cough R05.9 Additional Codes RALF-7 Assessment Billing - RALF-7 Assessment Tool: RALF-7 Assessment 03114 ([id number]) PHQ-9 - 30459 - PHQ-9 Billing: Yes ([id number]) Assessment & Plan Assessment & Plan (1) Microscopic hematuria: Code(s): R31.29 - Other microscopic hematuria Category: Medical Plan: Patient is being followed up by Urology and on terazosin doing good (2) Hypercholesterolemia: Code(s): E78.00 - Pure hypercholesterolemia, unspecified Category: Medical Plan: Avoid fried foods, chicken skin, eggs, butter margarine, pastries and meat. Be it pork or beef they have a lot of cholesterol on simvastatin 20 mg once a day (3) Hypothyroid: Comment: Dr. Smith Code(s): E03.9 - Hypothyroidism, unspecified Category: Medical Qualifiers: Hypothyroidism type: acquired Qualified Code(s): E03.9 - Hypothyroidism, unspecified Plan: Continue with thyroid medication (4) Hypertension: Code(s): I10 - Essential (primary) hypertension Category: Medical Qualifiers: Hypertension type: essential hypertension Qualified Code(s): I10 - Essential (primary) hypertension Plan: Continue with blood pressure medication. Decrease salt intake and exercise takes hydrochlorothiazide losartan (5) Overweight (BMI 25.0-29.9): Code(s): E66.3 - Overweight Category: Medical Plan: Diet and exercise continue (6) GERD (gastroesophageal reflux disease): Code(s): K21.9 - Gastro-esophageal reflux disease without esophagitis Category: Medical Qualifiers: Esophagitis presence: without esophagitis Qualified Code(s): K21.9 - Gastro-esophageal reflux disease without esophagitis Plan: Avoid the foods that causes that usually spicy foods, tomato products, juices, coffee, soda and foods that your sensitive to. After eating do not lie down, allow 3-4 hours before in lie down. And keep the head of bed above 30 degrees to avoid the acid from going up. (7) Osteopenia: Comment: May 2018, 2020April 2023 Code(s): M85.80 - Other specified disorders of bone density and structure, unspecified site Category: Medical Plan: Bone density done April 2023 (8) Breast cancer screening by mammogram: Code(s): Z12.31 - Encounter for screening mammogram for malignant neoplasm of breast Category: Medical Plan: Reminded about mammogram (9) Cough: Code(s): R05.9 - Cough, unspecified Category: Medical Plan History of Present Illness The patient is a 74-year-old female presenting with primary concerns of joint pain and muscle weakness. The symptoms originated following an ice-related fall in January, affecting her neck and other joints, with persistent pain exacerbated by movement. The patient's concern about increasing muscular weakness and reliance on assistive devices for mobility reflects her chronic, degenerative changes impacting daily functionality. 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 Additionally, the patient suffers from a chronic cough and occasional congestion, leading to further distress, compounded by her existing conditions of hypothyroidism, hypertension, and hypercholesterolemia. Medically managed under a regimen that includes simvastatin, levothyroxine, and a combination antihypertensive therapy, she experiences adequate control over her primary chronic conditions with periodic evaluation via blood work reflecting stable internal organ functions. Her ferritin levels remain low, indicative of mild anemia. There is an urologic follow-up basis for hematuria, under control with Terazosin. Health Maintenance - Bone density screening performed April 2023. - Mammogram required; last done January 2023. - Colonoscopy follow-up needed. - Advised on adequate hydration due to hydrochlorothiazide use. - Encouraged to increase physical activity, considering exercise classes. Social History - Exercise: Limited physical activity mostly confined to house cleaning; plans for potential exercise classes at a senior center. - Functional status: Reduced mobility due to musculoskeletal complaints, questioning need for future assistive devices. - Nutrition: Regular consumption of tea and coffee; intermittent water intake highlighted by inadequate hydration levels. Review of Systems - Musculoskeletal: Reports widespread joint pain, neck pain, and muscle weakness. - Respiratory: Reports chronic cough and potential congestion. - Genitourinary: Denies pain during urination. Physical Exam - Musculoskeletal- Patient exhibits soreness upon touch in multiple areas, specifically in shoulders and hip regions, with limited range of motion due to pain. - Respiratory- Throat appears dry; no specific auscultatory findings reported. Results - Labs: Hemoglobin at 11.3 g/dL, hematocrit at 33.1%, electrolytes, renal and liver functions within normal limits. - Imaging/Tests: Bone density test done April 2023 with implications for osteoarthritis management. - Cardiovascular: Normal post-void residual with Terazosin as urinary management. Plan During the visit, detailed attention was given to addressing the patient's primary concern of persistent joint and muscular pain, recommending continuation of muscle relaxants and caution with ibuprofen due to potential gastrointestinal side effects. Increasing physical activities, possibly through tailored exercise programs, was encouraged to improve joint function. Diagnostic evaluations, such as neck x-rays and chest imaging, were proposed given her complaints post-fall and respiratory symptoms. The patient's chronic medical management remains unchanged, maintaining her on current medication regimens for her hypothyroidism, hypertension, and hypercholesterolemia. Emphasis was placed on the importance of proper hydration due to antihypertensive therapy and regular use of nasal sprays to mitigate sinus-related symptoms. The patient is advised to schedule outstanding screenings, such as a mammogram, ensure follow-up colonoscopy, and continue current urological follow-ups. Continuous monitoring of mild anemia is undertaken with a potential for dietary modifications as warranted. Patient was informed and verbally consented to the use of an ambient scribe for clinic note documentation during this visit. Discussion Notes I discussed with the patient the management of her joint and muscle discomfort following her fall, reaffirming the need for caution with analgesics due to gastrointestinal risks. We talked about the importance of implementing an exercise routine to potentially strengthen muscles and improve joint function. I recommended diagnostic imaging given the chronicity of her cough and recent fall. Regarding her chronic conditions, we reviewed her medication regimen, highlighting the importance of maintaining hydration levels and managing sinus congestion consistently. I emphasized scheduling screening tests, such as her overdue mammogram and upcoming colonoscopy. The patient is continuing her current urological follow-up under Terazosin therapy for hematuria. I stressed the significance of monitoring her mild anemia and possibly adjusting dietary intake as required to address this condition effectively. The patient agreed to the suggested plans and acknowledges the need for both follow-up care and health maintenance measures. Patient Instructions - Use muscle relaxants as needed, with caution on ibuprofen use due to potential stomach side effects. - Work on incorporating an exercise routine to strengthen muscles; consider senior center exercise classes. - Maintain adequate hydration; ensure enough water intake, especially while on hydrochlorothiazide. - Use Flonase regularly for sinus congestion. - Schedule a mammogram and follow-up for a colonoscopy. - Continue with Terazosin as part of urologic follow-up. - Monitor fatigue levels and dietary adjustments as needed for anemia. - Follow up on diagnostic imaging, such as chest and neck x-rays, as discussed. - Ensure all medications are taken as prescribed, maintaining precautions discussed. Orders: Referrals Gastroenterology Referral D50.9 - Iron deficiency anemia, unspecified
== END 2024-06-24 11:57 | disposition home or self-care (01) ==
LOC: HO.HMCH 11:02
PROVIDERS: PCP Internal Medicine; Visit Provider Internal Medicine
DX: R31.29 Other microscopic hematuria (principal); E78.00 Pure hypercholesterolemia, unspecified; E03.9 Hypothyroidism, unspecified; I10 Essential (primary) hypertension; E66.3 Overweight; K21.9 Gastro-esophageal reflux disease without esophagitis; M85.80 Other specified disorders of bone density and structure, unspecified site; Z12.31 Encounter for screening mammogram for malignant neoplasm of breast; R05.9 Cough, unspecified

== ENCOUNTER → 2024-06-24 11:01 | Outpatient (BNVA) | payer OTHER, SELFPAY | PROVIDERS: PCP Internal Medicine; Visit Provider Internal Medicine | DX: R31.29 Other microscopic hematuria (principal); E78.00 Pure hypercholesterolemia, unspecified; E03.9 Hypothyroidism, unspecified; I10 Essential (primary) hypertension; E66.3 Overweight; Z68.26 Body mass index [BMI] 26.0-26.9, adult; K21.9 Gastro-esophageal reflux disease without esophagitis; M85.80 Other specified disorders of bone density and structure, unspecified site; R05.9 Cough, unspecified | CPT/HCPCS: 96127 ==

== ENCOUNTER 2024-06-25 14:34 | Outpatient (REF) | payer OTHER, SELFPAY ==
--- NOTE | ~2024-06-25 | XR_ITS ---
EXAMINATION: XR CHEST CLINICAL INFORMATION: R05.9 - Cough, unspecified COMPARISON: 10/10/2022. Correlation made with CT chest 11/15/2022. TECHNIQUE: 2 views of the chest were obtained. FINDINGS: The cardiac, hilar, and mediastinal contours are normal. The lungs are clear bilaterally. There is no pneumothorax or pleural effusion. There is no focal osseous or soft tissue abnormality. There are mild spinal degenerative changes. XR/XR chest 2V IMPRESSION: No active pulmonary disease. No change. Electronically signed by: Jorden Briggs MD 06/26/2024 02:07 PM EDT
== END 2024-06-25 14:35 | disposition home or self-care (01) ==
LOC: HO.HMGCX 14:34
PROVIDERS: PCP Internal Medicine; Visit Provider Internal Medicine
DX: R05.9 Cough, unspecified (principal)
CPT/HCPCS: 71046

== ENCOUNTER → 2024-06-25 14:37 | Outpatient (BNV) | payer OTHER, SELFPAY | PROVIDERS: PCP Internal Medicine; Visit Provider Radiology Diagnostic Radiology | DX: R05.9 Cough, unspecified (principal) | CPT/HCPCS: 71046 ==

== ENCOUNTER 2024-09-25 14:02 | Outpatient (AMB) | payer OTHER, SELFPAY ==
[2024-09-25 14:03] VITALS: BP 118/72; PULSE 75; O2SAT 96; BMI 26.5
--- NOTE | 2024-09-25 14:03 | MHC.PC.OV ---
Vital Signs 09/25/24 14:03 Height 5 ft 4 in Weight 154 lb 6 oz BMI 26.5 BP 118/72 Blood Pressure Location Lt brachial Position Sitting Pulse 75 Pulse Source Pulse Oximeter Pulse Oximetry (%) 96 Oxygen Delivery Method Room Air Intake Visit Reasons: back pain, HTN Manufacturing Analyst Required: No Accompanied by: Self / Same As Patient Allergies amoxicillin (AMOXICILLIN) Allergy (Unknown, Verified 09/25/24 14:04) UNKNOWN penicillin V Allergy (Unknown, Verified 09/25/24 14:04) Unknown Sulfa (Sulfonamide Antibiotics) (SULFA (SULFONAMIDE ANTIBIOTICS)) Allergy (Unknown, Verified 09/25/24 14:04) UNKNOWN lisinopril Adverse Reaction (Unknown, Verified 09/25/24 14:04) cough Medication List - Last Reconciled 09/25/24 by Jossy Richter MD cholecalciferol (vitamin D3) 50 mcg PO DAILY cyclobenzaprine 10 mg PO TID hydrochlorothiazide 12.5 mg PO DAILY 90 days levothyroxine 112 mcg PO DAILY losartan 100 mg PO DAILY multivitamin 1 tab PO DAILY simvastatin 20 mg PO DAILY terazosin 1 mg PO BEDTIME 90 days triamcinolone acetonide 0.1% 1 appl topical BID wheat dextrin (Best Fiber) 1 packet PO DAILY Tobacco use date assessed: 09/25/24 Fall risk assessment: 2 + Falls in past year Last assessed Fall Risk: 09/25/24 Dental Screening Dental Screen Date: 09/25/24 Did you have a dental visit in the last 12 months?: Yes Did you have a dental problem in the last 6 months where you did not have access to dental care?: No Was dental information given to patient?: Patient has dentist [facility] Medical History Hemorrhoids with complication Rectal bleeding Osteopenia GERD (gastroesophageal reflux disease) Overweight (BMI 25.0-29.9) Hypertension Hypothyroid Hypercholesterolemia Surgical History History of total abdominal hysterectomy and bilateral salpingo-oophorectomy History of bilateral cataract extraction History of lumpectomy of left breast History of thyroidectomy History of tonsillectomy History of appendectomy Family History Father Smoker Lung cancer Mother Hypertension Diabetes Crohn disease Hypercholesterolemia Brother Hypertension Brother Diabetes Gastric cancer Paternal Grandfather Prostate cancer Social History Housing: House Alcohol intake: current Alcohol intake frequency: holidays/special occasions only Alcohol type: wine Comment: glass of wine 5 x a week Patient Tobacco Use Status: Former Tobacco user Tobacco use type: Cigarette Years Smoked: quit 23 years old e-Cigarette/Vaping Use: Never Used Second Hand Smoke Exposure: No service: No Current occupational status: retired Current occupational exposures/hazards: No Cognitive needs: No Hearing needs: Yes Vision needs: Yes Questionnaire PHQ-9 Over the last 2 weeks, how often have you been bothered by any of the following problems? 1. Little interest or pleasure in doing things: not at all 2. Feeling down, depressed, or hopeless: not at all 3. Trouble falling or staying asleep, or sleeping too much: several days 4. Feeling tired or having little energy: several days 5. Poor appetite or overeating: not at all 6. Feeling bad about yourself - or that you are a failure or have let yourself or your family down: not at all 7. Trouble concentrating on things, such as reading the newspaper or watching television: not at all 8. Moving or speaking so slowly that other people could have noticed. Or the opposite - being so fidgety or restless that you have been moving around a lot more than usual: not at all 9. Thoughts that you would be better off or of hurting yourself in some way: not at all Total score: 2 Source: Developed by Drs. Francis Sánchez, Wendy Ellison, Tab Rosa and colleagues, with an educational kentrell from [employer]. Thrive Questionnaire Date Thrive assessed: 09/25/24 I am a: Patient What is your living situation today?: I have a steady place to live Within the past 12 months, did the food you bought not last and you didn't have the money to get more?: Never true Within the past 12 months, did you worry whether your food would run out before you got money to buy more?: Never true Do you have trouble paying for medicines?: No Do you have trouble getting transportation to medical appointments?: No Do you have trouble paying your heating and electricity bill?: No Do you have trouble taking care of your child, family member or friend?: No Do you have trouble with day-to-day activities such as bathing, preparing meals, shopping, managing finances, etc.?: No Are you currently unemployed and looking for a job?: No Are you interested in more education?: No Please select the resources that you would like help with: None Currently or been in a relationship where the following occur: No concerns reported THRIVE Score: 0 AUDIT C Alcohol Use Questionnaire (AUDIT-C) 1. How often do you have a drink containing alcohol?: 2-4 times a month 2. How many drinks containing alcohol do you have on a typical day when you are drinking?: 1 or 2 3. How often do you have six or more drinks on one occasion?: Never Total Score: 2 RALF-7 AMB Questionnaire RALF-7 Date RALF - 7 assessed: 09/25/24 Feeling nervous, anxious, or on edge: 1 = Several days Not being able to stop or control worryin = Several days Worrying too much about different things: 1 = Several days Trouble relaxin = Several days Being so restless that it is hard to sit still: 0 = Not at all Becoming easily annoyed or irritable: 0 = Not at all Feeling afraid as if something awful might happen: 0 = Not at all Total RALF-7 score (0-4 normal; 5-9 mild; 10-14 moderate; 15-21 severe): 4 Source: Developed by Drs. Francis Sánchez, Wendy Ellison, Tab Rosa and colleagues, with an educational kentrell from [employer]. Physical exam (Primary Care) Vital Signs: Last Vital Signs Pulse 75 09/25/24 14:03 BP 118/72 09/25/24 14:03 Pulse Ox 96 09/25/24 14:03 Oxygen Delivery Method Room Air 09/25/24 14:03 BMI result Body Mass Index 26.5 Tobacco/Smoking Status: Tobacco use Status Tobacco use date assessed 09/25/24 09/25/24 14:07 Patient Tobacco Use Status Former Tobacco user 09/25/24 14:07 Tobacco use type Cigarette 09/25/24 14:07 e-Cigarette/Vaping Use Never Used 09/25/24 14:07 PHQ-9: PHQ-9 Score PHQ-9: Total score 2 09/25/24 14:07 Thrive Assessment: Date of Thrive Assessment Date Thrive assessed 09/25/24 09/25/24 14:07 Currently or been in a relationship where the following occur: No concerns reported Const General: alert; No acute distress Eyes Conjunctivae: conjunctivae normal Resp Auscultation: clear to auscultation bilaterally Cardio Rate: regular rate Rhythm: regular rhythm GI Inspection: Yes normal to inspection Extrem General: Yes normal to inspection and No edema Coding Level of Care Code Est Pt Level 4 (10402) Diagnoses Essential hypertension I10 Hypertension type: essential hypertension Hypercholesterolemia E78.00 Acquired hypothyroidism E03.9 Hypothyroidism type: acquired Osteopenia M85.80 Gastroesophageal reflux disease without esophagitis K21.9 Esophagitis presence: without esophagitis Palpitations R00.2 Assessment & Plan Assessment & Plan (1) Hypertension: Code(s): I10 - Essential (primary) hypertension Category: Medical Qualifiers: Hypertension type: essential hypertension Qualified Code(s): I10 - Essential (primary) hypertension Plan: Continue with blood pressure medication. Decrease salt intake and exercise patient on hydrochlorothiazide 12.5 mg once a day losartan 100 mg once a day (2) Hypercholesterolemia: Code(s): E78.00 - Pure hypercholesterolemia, unspecified Category: Medical Plan: Avoid fried foods, chicken skin, eggs, butter margarine, pastries and meat. Be it pork or beef they have a lot of cholesterol LDL goal of less than 130 and triglyceride of less than 150 on simvastatin 20 mg once a day (3) Hypothyroid: Comment: Dr. Smith Code(s): E03.9 - Hypothyroidism, unspecified Category: Medical Qualifiers: Hypothyroidism type: acquired Qualified Code(s): E03.9 - Hypothyroidism, unspecified Plan: Continue with thyroid medication (4) Osteopenia: Comment: May 2018, 2020April 2023 Code(s): M85.80 - Other specified disorders of bone density and structure, unspecified site Category: Medical Plan: Bone density up-to-date discussed about calcium and vitamin-D (5) GERD (gastroesophageal reflux disease): Code(s): K21.9 - Gastro-esophageal reflux disease without esophagitis Category: Medical Qualifiers: Esophagitis presence: without esophagitis Qualified Code(s): K21.9 - Gastro-esophageal reflux disease without esophagitis Plan: Reflux (6) Palpitations: Code(s): R00.2 - Palpitations Category: Medical Plan: offered holter but would like to hold off , advised to limit caffeine and if increasing will need to treat Plan History of Present Illness The patient is a 74-year-old female presenting for a follow-up visit. She has a history of hypothyroidism, hypertension, hypercholesterolemia, gastroesophageal reflux disease (GERD), and osteopenia. Her last colonoscopy was performed in 2021, and her mammogram and bone density screenings are up to date. The patient reports a history of anemia, with recent blood work showing a hemoglobin level of 11.3 g/dL. She has experienced lower levels in the past, with no new symptoms reported. She has been experiencing palpitations, occurring once or twice a month, sometimes accompanied by lightheadedness and headaches. These episodes are not associated with physical activity and have been noted to occur even at rest. The patient also reports anal discharge, which is clear or sometimes tinged with blood due to hemorrhoids. She experiences multiple bowel movements daily, with occasional exertion required during defecation. Her medication regimen includes hydrochlorothiazide, losartan, simvastatin, thyroid medication, and vitamin D supplementation. She also takes a fiber supplement to aid bowel movements. The patient has been more active recently, engaging in yard work and gardening, which she finds beneficial. She is mindful of staying hydrated, although she acknowledges not drinking enough water at times. Health Maintenance - Colonoscopy performed in 2021 - Mammogram up to date - Bone density screening up to date - Discussed calcium and vitamin D supplementation for bone health Social History - Engages in yard work and gardening, indicating a moderate level of physical activity - Attempts to stay hydrated but acknowledges insufficient water intake at times Review of Systems - Cardiovascular: Reports palpitations occurring once or twice a month, sometimes with lightheadedness and headaches. Denies chest pain. - Gastrointestinal: Reports anal discharge, multiple bowel movements daily, and exertion during defecation. Denies significant abdominal pain. - Hematologic: Reports history of anemia with current mild anemia. - Musculoskeletal: Denies significant musculoskeletal pain. Physical Exam Results - Labs: Hemoglobin 11.3 g/dL indicating mild anemia - Labs: LDL cholesterol 87 mg/dL - Imaging: Chest X-ray negative Plan For hypertension, the patient will continue with hydrochlorothiazide and losartan. For hypercholesterolemia, simvastatin therapy will be maintained with a target LDL of less than 130 mg/dL and triglycerides less than 150 mg/dL. The patient will continue her thyroid medication for hypothyroidism and maintain her current regimen for GERD. Calcium and vitamin D supplementation will be continued to support bone health in the context of osteopenia. Regarding anemia, the patient is informed that her current mild anemia is not new and has been lower in the past, with monitoring of symptoms advised. A Holter monitor test is suggested for palpitations to capture any abnormal rhythms, with further cardiology consultation if necessary. The patient is advised to avoid caffeine and other triggers that may exacerbate palpitations. For the anal discharge and hemorrhoids, dietary modifications including increased fiber intake are recommended, and the patient is encouraged to continue using fiber supplements. A follow-up with Dr. Calloway is planned to further evaluate gastrointestinal symptoms. Patient was informed and verbally consented to the use of an ambient scribe for clinic note documentation during this visit. Discussion Notes I discussed with the patient the management of her hypertension, recommending continuation of hydrochlorothiazide and losartan. For hypercholesterolemia, I advised maintaining simvastatin therapy with specific LDL and triglyceride targets. We reviewed her thyroid medication and GERD management, emphasizing adherence to her current regimen. For osteopenia, we discussed the importance of calcium and vitamin D supplementation. Regarding her anemia, I reassured her that the mild anemia is not new and advised monitoring for any changes. For palpitations, I suggested a Holter monitor test to capture any abnormal rhythms, with the possibility of cardiology consultation if needed. I advised avoiding caffeine and other potential triggers. We discussed dietary modifications for her anal discharge and hemorrhoids, recommending increased fiber intake and continued use of fiber supplements. A follow-up with Dr. Calloway is planned to further evaluate her gastrointestinal symptoms. Patient Instructions - Continue taking hydrochlorothiazide and losartan for blood pressure management. - Maintain simvastatin therapy for cholesterol management with target LDL and triglyceride levels. - Continue thyroid medication and GERD regimen as prescribed. - Take calcium and vitamin D supplements for bone health. - Monitor for any changes in anemia symptoms and report if necessary. - Avoid caffeine and other triggers that may cause palpitations. - Increase fiber intake and continue using fiber supplements for bowel health. - Follow up with Dr. Calloway for further evaluation of gastrointestinal symptoms.
--- OUTSIDE RECORDS SUMMARY | 2024-09-25 16:46 | XMS_ITS | Patient Health Record ---
Author Organization [facility] Address [address] [place] [id number] Care Team Providers Care Fashion Director Name Role Phone Jossy Richter MD Primary Care Provider Francis Ortega [phone] Allergies Allergen (clinical drug ingredient) Drug/Non Drug Allergy documented on EMR Reaction Allergy Type Onset Date Status Bees (uncoded) Unknown Allergy Activ e Substance with sulfonamide structure and antibacterial mechanism of action (substance) Sulfa (uncoded) Unknown Allergy Active amoxicillin Amoxicillin (uncoded) Unknown Allergy Active Reason For Referral No Information Medications Medication SIG (Take, Route, Frequency, Duration) Notes Start Date End Date Status Levothyroxine Sodium 125 MCG 1 tablet Or ally Once a day Active Valsartan Active hydroCHLOROthiazide 12.5 MG 1 tablet Ora lly Once a day Active Simvastatin 20 MG 1 tablet in the even ing Orally Once a day Active Terazosin HCl 1 MG 1 capsule at bedtime Oral every other day Active Immunizations Vaccine Route Administration Date Status Comme nts Influenza Unknown 01/01/2019 Administered Influenza Unknown 12/02/2020 Administered Social History Tobacco Use: Social History Observation Description Date Details (start date - stop date) Former Smoker NA - NA Tobacco Use/Smoking Question Answer Notes Patient is a former smoker When did you start smoking? 17 years old When did you stop smoking? 40 years How long has it been since you last smoked? > 10 years Additional Findings: Tobacco Non-User Ex-cigaret te smoker Alcohol Screen Question Answer Notes Did you have a drink contain ing alcohol in the past year? Yes How often did you have a dri nk containing alcohol in the past year? 4 or more times a week (4 points) How many drinks did you have on a typical day when you were drinking in the past year? 1 or 2 drinks (0 point) How often did you have 6 or more drinks on one occasion in the past year? Never (0 point) Points 4 Interpretation Positive Section Notes: Nonsmoker; no sig alcohol Nonsmoker; no sig alcohol former smoker; no sig alcoho l (ocassional wine) former smoker; no sig alcoho l (ocassional wine) Problems Problem Type SNOMED Code ICD Code Onset Dates Problem Status W/U Status Risk Notes Problem 525982476 Irritable bowel syndrome with diarrhea (K58.0) Active confirmed Problem 86237432 Rectal bleed (K62.5) Active confirmed Problem 906926205 GERD with esophagitis (K21.0) Active confirmed Problem Diverticulosis of sigmoid colon (754791376) Diverticulosis of sigmoid colon (K57.30) Active confirmed Problem 90964517 Irritable bowel syndrome with both constipation and diarrhea (K58.2) Active confirmed Plan Of Treatment Pending Test Test Name Order Date CRP 01/11/2022 CBC w DIFF 01/11/2022 SED RATE (ESR) 01/11/2022 CELIAC PANEL #10 01/11/2022 STOOL WBC 01/11/2022 C DIFFICILE RFLX PCR 01/11/2022 CALPROTECTIN, STOOL 01/11/2022 Future Test Test Name Order Date UPPER GI ENDOSCOPY 06/19/2014 COLONOSCOPY 06/19/2014 COLONOSCOPY 01/11/2022 Next Appt Details Provider Name:Francis Calloway , 10/01/2024 11:10:00 AM, [address] [place] [address], [address], [place], [id number], Insurance Providers Payer Name Payer Address Payer Phone Subscriber Number Group Number Insured Name Patient Relationship to Insured Coverage Start Date Coverage End Date [facility] [address] [place] [address] [phone] [id number] CAROLINA ANTON Self - patient is the insured Medical (General) History Medical History History ICD Code 09/08/2006 Screening Colonoscopy--negati ve except for internal hemorrhoids GERD-upper endoscopy in August of 2014 revealed a small hiatal hernia, esophagitis, and an inflammatory polyp at the gastroesophageal junction Hypertension Denies DC,DM,CVA,Lung disease,renal dise ase Hyperlipidemia Colonoscopy in August of 2014 r evealed only sigmoid diverticulosis and internal hemorrhoids Irritable bowel syndrome Negative celiac disease laboratories in 2014 Surgical History Surgery Date(Month/Year) Complete hysterectomy Appendectomy Thyroidectomy for cancer Approx. 2006
== END 2024-09-25 15:03 | disposition home or self-care (01) ==
LOC: HO.HMCH 14:03
PROVIDERS: PCP Internal Medicine; Visit Provider Internal Medicine
DX: I10 Essential (primary) hypertension (principal); E78.00 Pure hypercholesterolemia, unspecified; E03.9 Hypothyroidism, unspecified; M85.80 Other specified disorders of bone density and structure, unspecified site; K21.9 Gastro-esophageal reflux disease without esophagitis; R00.2 Palpitations

== ENCOUNTER → 2024-09-25 14:02 | Outpatient (BNVA) | payer OTHER, SELFPAY | PROVIDERS: PCP Internal Medicine; Visit Provider Internal Medicine | DX: Z13.89 Encounter for screening for other disorder (principal) ==

== ENCOUNTER 2025-01-15 15:35 | Outpatient (REF) | payer OTHER, SELFPAY ==
[2025-01-15 15:49] LABS: MANUAL DIFF FLAG NO
[2025-01-15 17:31] LABS: Hematocrit 35.8 % (37.0-47.0); Hemoglobin 11.8 g/dl (12.0-16.0); Imm Gran Abs Auto 0.02 X10*3/uL (0.00-0.03); Imm Gran Pct Auto 0.3 % (0.0-0.4); Lymphocytes Absolute Auto 2.9 X10*3/uL (1.2-4.9); Mean Corpuscular HGB Conc 33.0 g/dl (31.0-35.0); Mean Corpuscular Hemoglobin 29.9 pg (27.0-33.0); Mean Corpuscular Volume 90.9 fL (80.0-98.0); NRBC Abs Auto 0.000 X10*3/uL (0.0-0.012); NRBC Pct Auto 0.0 /100WBC (0.0-0.2); Platelet Count 281 X10*3/uL (160-400); Red Blood Count 3.94 X10*6/uL (4.20-5.50); White Blood Count 7.1 X10*3/uL (4.8-10.8)
[2025-01-15 17:57] LABS: Iron 72 mcg/dL (30-160); Percent Iron Saturation 30 % (15-50); Total Iron Binding Capacity 243 mcg/dL (228-428); Unsaturated Iron Binding 171 ug/dL
[2025-01-15 18:12] LABS: Ferritin 157 ng/mL (10-250)
[2025-01-15 18:26] LABS: Folate 13.7 ng/mL (> or = 4.0); Vitamin B12 698 pg/mL (200-900)
--- OUTSIDE RECORDS SUMMARY | 2025-01-15 19:04 | XMS_ITS | Patient Health Record ---
Author Organization [facility] Address [address] [place] [address] Care Team Providers [facility] Director Name Role Phone Po Jossy DESAI Primary Care Provider Francis Ortega [phone] Allergies Allergen (clinical drug ingredient) Drug/Non Drug Allergy documented on EMR Reaction Allergy Type Onset Date Status Bees (uncoded) Unknown Allergy Activ e Substance with sulfonamide structure and antibacterial mechanism of action (substance) Sulfa (uncoded) Unknown Allergy Active amoxicillin Amoxicillin (uncoded) Unknown Allergy Active Results Component Value Reference Range Notes Ferritin (Not yet reviewed b y provider) Interpretation: Performing Lab:[address] [phone] Notes/Report: Ferritin 157 10-250 ng/mL Vitamin B12 and Folate (Not yet reviewed by provider) Interpretation: Performing Lab:[address] [phone] Notes/Report: Vitamin B12 698 200-900 pg/mL NORMAL 200-900 PG/ML INDETERMINATE 160-199 PG/ML DEFICIENT < 160 PG/ML Folate 13.7 > or = 4.0 ng/mL Reference Values: > or = 4.0 ng/mL < 4.0 ng/mL suggests folate deficiency Methotrexate, aminopterin and folinic acid (leucovorin) are chemotherapeutic agents whose molecular structures are similar to folate; therefore, the [employer] folate assay cannot be used for patients using these drugs. Complete Blood Count Auto Di ff (Not yet reviewed by provider) Interpretation: Performing Lab:[address] [phone] Notes/Report: White Blood Count 7.1 4.8-10.8 X10*3/uL Red Blood Count 3.94 4.20-5.50 X10*6/uL Hemoglobin 11.8 12.0-16.0 g/dl Hematocrit 35.8 37.0-47.0 % Mean Corpuscular Volume 90.9 80.0-98.0 fL Mean Corpuscular Hemoglobin 29.9 27.0-33.0 pg Mean Corpuscular HGB Conc 33.0 31.0-35.0 g/dl Red Cell Distribution Width 12.3 11.0-16.0 % Platelet Count 281 160-400 X10*3/uL Mean Platelet Volume 10.0 9.4-12.3 fL Neutrophils Percent Auto 44.8 45-73 % Imm Gran Pct Auto 0.3 0.0-0.4 % Lymphocytes Percent Auto 41.3 20-40 % Monocytes Percent Auto 9.1 2-11 % Eosinophils Percent Auto 3.4 0-4 % Basophils Percent Auto 1.1 0-2 % NRBC Pct Auto 0.0 0.0-0.2 /100WBC Neutrophils Absolute Auto 3.2 2.0-8.3 x10*3/u L Imm Gran Abs Auto 0.02 0.00-0.03 X10*3/uL Lymphocytes Absolute Auto 2.9 1.2-4.9 X10*3/u L Monocytes Absolute Auto 0.7 0.1-1.2 X10*3/uL Eosinophils Absolute Auto 0.2 0.0-0.4 X10*3/u L Basophils Absolute Auto 0.1 0.0-0.2 X10*3/uL NRBC Abs Auto 0.000 0.0-0.012 X10*3/uL IRON PROFILE (Not yet review ed by provider) Interpretation: Performing Lab:[facility], [address] [place] [phone] Notes/Report: Iron 72 30-160 mcg/dL Total Iron Binding Capacity 243 228-428 mcg/d L Percent Iron Saturation 30 15-50 % Unsaturated Iron Binding 171 Reason For Referral No Information Medications Medication SIG (Take, Route, Frequency, Duration) Notes Start Date End Date Status Terazosin HCl 1 MG 1 capsule at bedtime Oral every other day Active Losartan Potassium 25 MG 1 tablet Orally Once a day Active hydroCHLOROthiazide 12.5 MG 1 tablet Ora lly Once a day Active Fiber Active Levothyroxine Sodium 125 MCG 1 tablet Or ally Once a day Active Simvastatin 20 MG 1 tablet in the even ing Orally Once a day Active Immunizations Vaccine Route Administration Date Status Comme nts Influenza Unknown 01/01/2019 Administered Influenza Unknown 12/02/2020 Administered Influenza Unknown 01/16/2024 Administered Social History Tobacco Use: Social History [...] Never (0 point) Points 4 Interpretation Positive AUDIT-C (Standard) Question Answer Notes Did you have a drink contain ing alcohol in the past year? Yes How often did you have a dri nk containing alcohol in the past year? 2 to 3 times a week (3 points) How many drinks did you have on a typical day when you were drinking in the past year? 1 or 2 drinks (0 point) How often did you have six o r more drinks on one occasion in the past year? Never (0 point) Points 3 Interpretation Positive Section Notes: former smoker; no sig alcohol (ocassional wine) occasional glass of wine at dinner Nonsmoker; no sig alcohol Nonsmoker; no sig alcohol former smoker; no sig alcoho l (ocassional wine) former smoker; no sig alcoho l (ocassional wine) former smoker; no sig alcohol (ocassional wine) occasional glass of wine at dinner Problems Problem Type SNOMED Code ICD Code Onset Dates Problem Status W/U Status Risk Notes Problem Hemorrhoids (48435400) Hemorrhoids (K64.9) Active confirmed Problem Irritable bowel syndrome with diarrhea (954453144) Irritable bowel syndrome with diarrhea (K58.0) Active confirmed Problem Hemorrhage of rectum and anus (935322712) Rectal bleed (K62.5) Active confirmed Problem Anemia (885266818) Anemia (D64.9) Active confir med Problem Gastroesophageal reflux disease with esophagitis (disorder) (293449697) GERD with esophagitis (K21.0) Active confirmed Problem Diverticulosis of sigmoid colon (083444555) Diverticulosis of sigmoid colon (K57.30) Active confirmed Problem Irritable bowel syndrome (71234798) Irritable bowel syndrome with both constipation and diarrhea (K58.2) Active confirmed Vital Signs Temperature 96.9 degrees Fahrenheit 01/15/2025 Blood pressure diastolic 01 mm Hg 01/15/2025 Height 64 in 01/15/2025 Blood pressure systolic 001 mm Hg 01/15/2025 Weight 160 lbs 01/15/2025 BMI 27.46 kg/m2 01/15/2025 Procedures Procedure Date Ordered Date Performed Result Body Sit e COLONOSCOPY 01/15/2025 N/A Encounters Encounter Location Date Provider Diagnosis [facility] [address] [place] [phone] 01/15/2025 Francis Calloway Irritable bowel syndrome with both constipation and diarrhea K58.2 ; Rectal bleed K62.5 and Anemia D64.9 [facility] [address] [place] [phone] 10/01/2024 Francis Calloway Irritable bowel syndrome with both constipation and diarrhea K58.2 ; Hemorrhoids K64.9 and Anemia D64.9 Assessments Encounter Date Diagnosis (ICD Code) Assessment Notes Treatment Notes Treatment Clinical Notes Section Notes 01/15/2025 Irritable bowel syndrome with both constipation and diarrhea (ICD-10 - K58.2) Continue the daily Metamucil but add a dose of Miralax everyday with a lot of water. 10/01/2024 Hemorrhoids (ICD-10 - K64.9) Overall, Roopa appears well. We did review the findings on her colonoscopy from 2021. We did review her underlying history of irritable bowel syndrome and I advised her that her current symptoms seem to be quite consistent with that ongoing issue. I did advise her that her irregular bowel movements with predominantly frequent small stools could be contributing to her abdominal gas as well as some perianal discomfort and irritation causing the mucus and occasional bleeding from the hemorrhoids. As such, I recommended that she increase her supplemental fiber to 2 Metamucil fiber pills once or twice a day with a glass of water. I also instructed her to use some Preparation H cream and suppositories nightly for about a week and then as needed after that I advised her that I am hopeful that by increasing the supplemental fiber her bowel movements will become more regular which will help decrease her sense of gas and bloating, as well as hopefully decrease the irritation of the hemorrhoids. At this point I do not think a colonoscopy is required given the exam in February 2022, her clinical history as she describes it, and the findings on the anoscopy exam last summer with Dr. Villanueva. However, I am going to see Roopa again in the Fall for a follow-up visit to see how she is doing. If things have improved then we can continue to hold off on the colonoscopy. However I did advise her that if she continues to have some rectal discharge with mucus and occasional bleeding then we may need to proceed with that. I did advise her to contact me prior to the office visit if she has any problems or questions I can be of assistance with. Roopa was comfortable with this plan. Thank you again for allowing me to participate in Roopa's care. I shall continue to keep you advised of her progress. 10/01/2024 Irritable bowel syndrome with both constipation and diarrhea (ICD-10 - K58.2) Use 2 Fiber pills with at least 8 ounces of water once or twice a day to make the BM's more regular. Use Preparation H cream and/or suppository nightly for 1 week, and then as needed for discomfort or mucous Overall, Roopa appears well. We did review the findings on her colonoscopy from 2021. We did review her underlying history of irritable bowel syndrome and I advised her that her current symptoms seem to be quite consistent with that ongoing issue. I did advise her that her irregular bowel movements with predominantly frequent small stools could be contributing to her abdominal gas as well as some perianal discomfort and irritation causing the mucus and occasional bleeding from the hemorrhoids. As such, I recommended that she increase her supplemental fiber to 2 Metamucil fiber pills once or twice a day with a glass of water. I also instructed her to use some Preparation H cream and suppositories nightly for about a week and then as needed after that I advised her that I am hopeful that by increasing the supplemental fiber her bowel movements will become more regular which will help decrease her sense of gas and bloating, as well as hopefully decrease the irritation of the hemorrhoids. At this point I do not think a colonoscopy is required given the exam in February 2022, her clinical history as she describes it, and the findings on the anoscopy exam last summer with Dr. Villanueva. However, I am going to see Roopa again in the Fall for a follow-up visit to see how she is doing. If things have improved then we can continue to hold off on the colonoscopy. However I did advise her that if she continues to have some rectal discharge with mucus and occasional bleeding then we may need to proceed with that. I did advise her to contact me prior to the office visit if she has any problems or questions I can be of assistance with. Roopa was comfortable with this plan. Thank you again for allowing me to participate in Roopa's care. I shall continue to keep you advised of her progress. 01/15/2025 Rectal bleed (ICD-10 - K62.5) 10/01/2024 Anemia (ICD-10 - D64.9) Overall, Roopa appears well. We did review the findings on her colonoscopy from 2021. We did review her underlying history of irritable bowel syndrome and I advised her that her current symptoms seem to be quite consistent with that ongoing issue. I did advise her that her irregular bowel movements with predominantly frequent small stools could be contributing to her abdominal gas as well as some perianal discomfort and irritation causing the mucus and occasional bleeding from the hemorrhoids. As such, I recommended that she increase her supplemental fiber to 2 Metamucil fiber pills once or twice a day with a glass of water. I also instructed her to use some Preparation H cream and suppositories nightly for about a week and then as needed after that I advised her that I am hopeful that by increasing the supplemental fiber her bowel movements will become more regular which will help decrease her sense of gas and bloating, as well as hopefully decrease the irritation of the hemorrhoids. At this point I do not think a colonoscopy is required given the exam in February 2022, her clinical history as she describes it, and the findings on the anoscopy exam last summer with Dr. Villanueva. However, I am going to see Roopa again in the Fall for a follow-up visit to see how she is doing. If things have improved then we can continue to hold off on the colonoscopy. However I did advise her that if she continues to have some rectal discharge with mucus and occasional bleeding then we may need to proceed with that. I did advise her to contact me prior to the office visit if she has any problems or questions I can be of assistance with. Roopa was comfortable with this plan. Thank you again for allowing me to participate in Roopa's care. I shall continue to keep you advised of her progress. 01/15/2025 Anemia (ICD-10 - D64.9) Plan Of Treatment Pending Test Test Name Order Date COLONOSCOPY 01/15/2025 IRON + IBC (FE) 01/15/2025 CRP 01/11/2022 CBC w DIFF 01/11/2022 CBC w DIFF 01/15/2025 SED RATE (ESR) 01/11/2022 CELIAC PANEL #10 01/11/2022 STOOL WBC 01/11/2022 C DIFFICILE RFLX PCR 01/11/2022 CALPROTECTIN, STOOL 01/11/2022 Complete Blood Count Auto Diff IRON PROFILE 01/15/2025 Ferritin 01/15/2025 Vitamin B12 and Folate 01/15/2025 Future Test Test Name Order Date UPPER GI ENDOSCOPY 06/19/2014 COLONOSCOPY 06/19/2014 COLONOSCOPY 01/11/2022 Next Appt Details Provider Name:Francis Marco Antonio Calloway , 04/07/2025 10:40:00 AM, [address] [place] [address] , [place], [place], [phone], Insurance Providers Payer Name Payer Address Payer Phone Subscriber Number Group Number Insured Name Patient Relationship to Insured Coverage Start Date Coverage End Date [facility] [address] [place] [id number] ROOPA STRATTON Self - patient is the insured Medical (General) History Medical History History ICD Code 09/08/2006 Screening Colonoscopy- negati ve except for internal hemorrhoids GERD-upper endoscopy in August of 2014 revealed a small hiatal hernia, esophagitis, and an inflammatory polyp at the gastroesophageal junction Hypertension Denies MD,DM,CVA,Lung disease,renal dise ase Hyperlipidemia Colonoscopy in August of 2014 r evealed only sigmoid diverticulosis and internal hemorrhoids Irritable bowel syndrome Negative celiac disease laboratories in 2014 Colonoscopy 02/2022 Internal and External hemorrhoids, no polyps or colitis, biopsies negative for microscopic colitis She saw Dr. Villanueva in October 2023 for evaluation of her perianal symptoms with some mucus discharge and bleeding. Dr. Villanueva performed an anoscopy at that time and did not think the hemorrhoids required surgery. He did comment that there was some mucus, hemorrhoids, and diminished sphincter tone noted Surgical History Surgery Date(Month/Year) Cyst removed from breast Thyroidectomy for cancer Approx. 2006 Appendectomy Complete hysterectomy
== END 2025-01-15 15:36 | disposition home or self-care (01) ==
LOC: HO.LAB 15:35
PROVIDERS: PCP Internal Medicine; Visit Provider Internal Medicine
DX: D64.9 Anemia, unspecified (principal)
CPT/HCPCS: 36415; 82607; 82728; 82746; 83540; 85025